=== PATIENT | female | born 1930 | race African-American/Black ===

== ENCOUNTER 2019-02-05 10:21 | Emergency (ER) | payer MEDICARE, BC ==
[~2019-02-05] VITALS: Ht 170.2 cm; Wt 77.7 kg
[2019-02-05 10:23] VITALS: Ht 170.2 cm; Wt 77.7 kg
[2019-02-05] MEDS ORDERED: ALDACTONE25 MG PO (10:27)
[2019-02-05] MEDS ORDERED: CARDURA8 MG PO (10:28)
[2019-02-05] MEDS ORDERED: RYTHMOL SR225 MG PO (10:28)
[2019-02-05] MEDS ORDERED: ISORDIL5 MG PO (10:28)
[2019-02-05] MEDS ORDERED: KEPPRA750 MG PO (10:28)
[2019-02-05 11:10] LABS: BASOPHILS 0.6 % (0-2); EOSINOPHILS 3.7 % (0-7); HEMATOCRIT 34.9 % (36.0-48.0); HEMOGLOBIN 11.4 g/dL (12-16); LYMPHOCYTES 39.1 % (15-50); MCH 29.2 pg (26.0-34.0); MCHC 32.7 g/dL (31.0-37.0); MCV 89.3 fL (80.0-100.0); MEAN PLATELET VOLUME 10.6 fL (7.4-10.4); MONOCYTES 7.8 % (2-11); NEUTROPHILS 48.8 % (40-80); RBC 3.91 10x6/uL (4.00-5.40); RDW 13.8 % (11.5-14.5); WBC 3.2 10x3/uL (4.8-10.8)
[2019-02-05 11:15] LABS: PLATELET COUNT 169 10x3/uL (130-400)
[2019-02-05 11:26] LABS: ALBUMIN 3.5 g/dL (3.4-5.0); ANION GAP 8.3 mmol/L (8-16); BILIRUBIN - TOTAL 0.67 mg/dL (0.2-1.3); CALCIUM 8.8 mg/dL (8.5-10.1); CARBON DIOXIDE 31.1 mmol/L (21.0-32.0); CREATININE - SERUM 1.4 mg/dL (0.6-1.3); POTASSIUM - SERUM 4.4 mmol/L (3.5-5.1); PROTEIN - SERUM 7.4 g/dL (6.4-8.2)
[2019-02-05 13:04] VITALS: BP 176/92
== END 2019-02-05 13:06 | disposition home or self-care (01) ==
LOC: D.ER 10:21
PROVIDERS: Family Medicine
DX: I12.9 Hypertensive chronic kidney disease with stage 1 through stage 4 chronic kidney disease, or unspecified chronic kidney disease (principal); N18.2 Chronic kidney disease, stage 2 (mild); D64.9 Anemia, unspecified; D72.819 Decreased white blood cell count, unspecified

== ENCOUNTER 2019-11-22 17:43 | Emergency (ER) | payer MEDICARE, BC ==
[~2019-11-22] VITALS: Ht 170.2 cm; Wt 82.3 kg
[~2019-11-22 17:43] MED LIST: ALDACTONE25 MG PO; CARDURA8 MG PO; ISORDIL5 MG PO; KEPPRA750 MG PO; RYTHMOL SR225 MG PO
[2019-11-22 18:16] VITALS: Ht 170.2 cm; Wt 82.3 kg
[2019-11-22 18:42] LABS: BASOPHILS 0.2 % (0-2); HEMATOCRIT 38.2 % (36.0-48.0); HEMOGLOBIN 12.5 g/dL (12-16); IMMATURE GRANULOCYTES 0.5 % (0-5); LYMPHOCYTES 33.7 % (15-50); MCHC 32.7 g/dL (31.0-37.0); MCV 91.6 fL (80.0-100.0); MEAN PLATELET VOLUME 10.7 fL (7.4-10.4); NEUTROPHILS 56.6 % (40-80); PLATELET COUNT 197 10x3/uL (130-400); RBC 4.17 10x6/uL (4.00-5.40); RDW 13.7 % (11.5-14.5)
[2019-11-22 19:07] LABS: ANION GAP 13.9 mmol/L (8-16); CALCIUM 8.6 mg/dL (8.5-10.1); CARBON DIOXIDE 25.5 mmol/L (21.0-32.0); CREATININE - SERUM 1.9 mg/dL (0.6-1.3); POTASSIUM - SERUM 5.4 mmol/L (3.5-5.1)
[2019-11-22 19:18] LABS: ALBUMIN 3.5 g/dL (3.4-5.0); BILIRUBIN - TOTAL 0.51 mg/dL (0.2-1.3); PROTEIN - SERUM 7.6 g/dL (6.4-8.2)
[2019-11-22 21:30] VITALS: BP 121/83
== END 2019-11-22 21:31 | disposition home or self-care (01) ==
LOC: D.ER 17:43
PROVIDERS: Family Medicine
DX: S09.90XA Unspecified injury of head, initial encounter (principal); W19.XXXA Unspecified fall, initial encounter; Y93.9 Activity, unspecified; Y92.9 Unspecified place or not applicable; I50.9 Heart failure, unspecified; I11.0 Hypertensive heart disease with heart failure

== ENCOUNTER 2020-05-14 09:46 | Inpatient (IN) | payer MEDICARE, BC ==
[2020-05-14] VITALS (7 sets, daily range): BP systolic 88–178; BP diastolic 45–84; BMI 26.7
[~2020-05-14] VITALS: Ht 170.2 cm; Wt 77.1 kg
--- NOTE | 2020-05-14 10:15 | NUR ---
RT CALLED FOR ABG AT THIS TIME. SPOKE WITH DANG.
[2020-05-14 10:27] LABS: BASOPHILS 0.6 % (0-2); EOSINOPHILS 3.9 % (0-7); HEMATOCRIT 36.7 % (36.0-48.0); HEMOGLOBIN 11.8 g/dL (12-16); IMMATURE GRANULOCYTES 0.6 % (0-5); LYMPHOCYTES 30.4 % (15-50); MCH 29.4 pg (26.0-34.0); MCHC 32.2 g/dL (31.0-37.0); MCV 91.5 fL (80.0-100.0); MEAN PLATELET VOLUME 9.9 fL (7.4-10.4); MONOCYTES 6.8 % (2-11); NEUTROPHILS 57.7 % (40-80); PLATELET COUNT 165 10x3/uL (130-400); RBC 4.01 10x6/uL (4.00-5.40); RDW 14.2 % (11.5-14.5); WBC 3.4 10x3/uL (4.8-10.8)
[2020-05-14 10:37] LABS: APTT 25.9 SECONDS (22.8-39.4); INR 1.07 (0.85-1.17); PROTIME 13.8 SECONDS (11.6-15.0)
[2020-05-14 10:41] LABS: CALC OSMOLALITY 282 mosm/kg (275-300); CALCIUM 8.3 mg/dL (8.5-10.1); CARBON DIOXIDE 30.8 mmol/L (21.0-32.0); CHLORIDE - SERUM 106 mmol/L (98-107); CREATININE - SERUM 1.8 mg/dL (0.6-1.3); GLUCOSE 136 mg/dL (74-106); POTASSIUM - SERUM 4.3 mmol/L (3.5-5.1); SODIUM 140 mmol/L (136-145); UREA NITROGEN 18 mg/dL (7-18); eGFR NON AFRICAN AMERICAN 28 mL/min (90-120)
[2020-05-14 11:00] LABS: ALBUMIN 3.5 g/dL (3.4-5.0); ALKALINE PHOSPHATASE 74 U/L (30-120); ALT (SGPT) 16 U/L (10-68); BILIRUBIN - TOTAL 0.88 mg/dL (0.2-1.3); CREATINE KINASE 62 UL (21-215); PRO BNP 868 pg/mL (0-450); PROTEIN - SERUM 7.3 g/dL (6.4-8.2); TROPONIN-I < 0.017 ng/mL (0.000-0.060)
[2020-05-14 11:09] LABS: D-DIMER-QUANTITATIVE 5.56 ug/mLFEU (0.20-0.54)
--- NOTE | 2020-05-14 11:12 | NUR ---
CRITICAL LABS D-DIMER, LACTIC ACID REPORTED TO PHYSICIAN.
[2020-05-14 14:09] LABS: BILIRUBIN NEGATIVE (NEGATIVE); GLUCOSE NEGATIVE (NEGATIVE); KETONE NEGATIVE (NEGATIVE); NITRITE NEGATIVE (NEGATIVE); UROBILINOGEN NORMAL (NORMAL)
[2020-05-14 14:14] LABS: BACTERIA FEW /hpf (NEGATIVE); EPITHELIAL CELLS 0-5 /hpf (0-5); HYALINE CAST 0-5 /lpf (NONE SEEN); RED CELLS - URINE NONE SEEN /hpf (0-5)
[2020-05-14] MEDS ORDERED: TENORMIN25 MG PO (15:54)
--- NOTE | 2020-05-14 17:42 | NUR ---
PATIENT TELEMETRY APPLIED. RUNNING 52 SB
--- NOTE | 2020-05-14 19:45 | NUR ---
PT SITTING UP IN BED WITHOUT DISTRESS, AOX4. IV LEFT AC INFUSING NS @ 75. ASSISTED PT ON AND OFF BEDPAN TO VOID. SCDS ON. BED ALARM ON. DENIES OTHER NEEDS. CL IN REACH, WILL CTM
--- NOTE | 2020-05-14 22:30 | NUR ---
CALLED VIVEK MEYERS APN ABOUT PT NIGHT TIME HOME MEDS. ORDERS TO RESTART KEPPRA AND RYTHMOL AND ORDER [facility] IN AM.
[2020-05-15] VITALS: BP 162/88
[2020-05-15 04:00] VITALS: BP 189/86
[2020-05-15 04:29] LABS: BASOPHILS 0.6 % (0-2); EOSINOPHILS 4.8 % (0-7); HEMATOCRIT 34.2 % (36.0-48.0); HEMOGLOBIN 11.1 g/dL (12-16); IMMATURE GRANULOCYTES 0.3 % (0-5); LYMPHOCYTES 38.4 % (15-50); MCH 29.4 pg (26.0-34.0); MCHC 32.5 g/dL (31.0-37.0); MCV 90.7 fL (80.0-100.0); MEAN PLATELET VOLUME 10.4 fL (7.4-10.4); MONOCYTES 10.3 % (2-11); NEUTROPHILS 45.6 % (40-80); PLATELET COUNT 164 10x3/uL (130-400); RBC 3.77 10x6/uL (4.00-5.40); RDW 14.1 % (11.5-14.5); WBC 3.3 10x3/uL (4.8-10.8)
[2020-05-15 04:48] LABS: ALBUMIN 3.1 g/dL (3.4-5.0); ANION GAP 10.1 mmol/L (8-16); BILIRUBIN - TOTAL 1.01 mg/dL (0.2-1.3); CARBON DIOXIDE 27.4 mmol/L (21.0-32.0); CREATININE - SERUM 1.4 mg/dL (0.6-1.3); MAGNESIUM - SERUM 2.2 mg/dL (1.8-2.4); PROTEIN - SERUM 6.5 g/dL (6.4-8.2)
[2020-05-15 04:54] LABS: POTASSIUM - SERUM 3.5 mmol/L (3.5-5.1)
--- NOTE | 2020-05-15 06:00 | NUR ---
REFUSED TO TAKE POTASSIUM PER PROTOCOL UNTIL BREAKFAST STATING SHE HAS TO EAT WITH IT OR IT MAKES HER STOMACH UPSET
--- NOTE | 2020-05-15 07:00 | NUR ---
RECIEVED PT FROM DISCHARGE PLANNER. LEFT AC IV WITH NORMAL SALINE @ 75, ROOM AIR. PT HAS TELEMETRY ON. PT IS ALERT AND ORIENTED X4. OCCASIONAL SPELLS OF URINE INCONTINENCE. USES BED PANS. BED IN LOWEST POSITION, BED RAILS X2, CALL LIGHT WITHIN REACH. WILL CONTINUE TO MONITOR.
--- NOTE | 2020-05-15 08:06 | NUR ---
PT ALERT AND ORIENTE X4 UPON ENTERING. HUNG IV ABX. PT REQUESTS TO TAKE MORNING MEDICATION AFTER BREAKFAST. DENIES ANY OTHER NEEDS. BED IN LOWEST POSITION, BED RAILS X2, CALL LIGHT WITHIN REACH. WILL CONTINUE TO MONITOR. CHANGED PT DUE TO URINE INCONTINENCE.
[2020-05-15 09:11] VITALS: BP 197/91
--- NOTE | 2020-05-15 10:04 | NUR ---
PT ALERT AND ORIENTED X4 UPON ENTERING. MORNING MEDICATION GIVEN, NO DIFFICULTIES. PT IS RESTING UPRIGHT IN BED. DENIES ANY NEEDS. WILL CONTINUE TO MONITOR.
[2020-05-15 12:22] VITALS: BP 113/53
[2020-05-15 12:50] VITALS: Ht 170.2 cm; Wt 77.1 kg
--- NOTE | 2020-05-15 15:05 | NUR ---
ADMINISTERED MEDICATION AT THIS TIME. NO DIFFICULTIES. RESTING COMFORTABLY. WILL CONTINUE TO MONITOR.
[2020-05-15 17:04] VITALS: BP 178/82
[2020-05-15 20:00] VITALS: BP 168/84
--- NOTE | 2020-05-15 20:00 | NUR ---
PT SITTING UP IN BED WITHOUT DISTRESS, AOX4. SON AT BEDSIDE. IV LEFT AC INFUSING NS @ 75. DENIES PAIN. TOOK MEDS WITHOUT DIFFICULTY. REFUSED STOOL SOFTENER STATING "I ALREADY TOOK ONE TODAY" EVEN AFTER EXPLAINING TO PT IT WAS ORDERED TWICE A DAY. PT STATES SHE CANNOT USE BEDPAN TO HAVE BM, WANTS TO GET UP TO BATHROOM. SON AND NURSES AID ASSISTED PT TO BATHROOM WITH MAX ASSIST. PT HAD BM AND WAS ASSISTED BACK TO BED. DENIES OTHER NEEDS AT THIS TIME. CL IN REACH, BED ALARM ON, WILL CTM
[2020-05-16] VITALS: BP 176/82
[2020-05-16 04:00] VITALS: BP 168/76
[2020-05-16 07:18] LABS: BASOPHILS 0.2 % (0-2); EOSINOPHILS 3.6 % (0-7); HEMOGLOBIN 11.1 g/dL (12-16); IMMATURE GRANULOCYTES 0.2 % (0-5); LYMPHOCYTES 27.1 % (15-50); MCHC 31.7 g/dL (31.0-37.0); MCV 91.4 fL (80.0-100.0); MEAN PLATELET VOLUME 10.5 fL (7.4-10.4); MONOCYTES 6.2 % (2-11); NEUTROPHILS 62.7 % (40-80); PLATELET COUNT 156 10x3/uL (130-400); RBC 3.83 10x6/uL (4.00-5.40); RDW 14.3 % (11.5-14.5)
[2020-05-16 07:26] LABS: ALBUMIN 2.9 g/dL (3.4-5.0); ANION GAP 10.6 mmol/L (8-16); BILIRUBIN - TOTAL 0.85 mg/dL (0.2-1.3); CALCIUM 8.3 mg/dL (8.5-10.1); CARBON DIOXIDE 26.9 mmol/L (21.0-32.0); CREATININE - SERUM 1.4 mg/dL (0.6-1.3); MAGNESIUM - SERUM 2.2 mg/dL (1.8-2.4); POTASSIUM - SERUM 3.5 mmol/L (3.5-5.1); PROTEIN - SERUM 6.3 g/dL (6.4-8.2)
--- NOTE | 2020-05-16 07:30 | NUR ---
REC'D IN BED AWAKE AND ALERT. RESP EVEN AND UNLABORED WITH NO DISTRESS NOTED OR VOICED. NO C/O NOTED OR VOICED. ASSESSMENT COMPLETED. C/L IN REACH AT BEDSIDE.
[2020-05-16 07:37] LABS: WBC 4.4 10x3/uL (4.8-10.8)
[2020-05-16 09:00] VITALS: BP 179/79
--- NOTE | 2020-05-16 09:54 | NUR ---
I have reviewed this patient and I concur with the Shift Assessment completed by the Licensed Practical Nurse today this shift.
--- NOTE | 2020-05-16 10:52 | NUR ---
DR. BERNSTEIN WAS CONSULTED ON THIS PT WAS CALLED AND NOTIFIED REC'D NEW ORDERS FOR MRA OF HEAD AND NECK WITHOUT CONTRAST AND ECHO IF NOT ALREADY DONE. .
[2020-05-16 12:57] VITALS: BP 163/62
--- NOTE | 2020-05-16 16:20 | NUR ---
Rehab Note- Acute Inpatient Rehab prescreen order recieved. We currently have no beds avaliable at this time. Thank you for this referral! Jacy Pal RN Clinical Liaison, [facility] Rehab
[2020-05-16 16:53] VITALS: BP 163/78
--- NOTE | 2020-05-16 17:18 | NUR ---
Rehab Note- Acute Inpatient REhab prescreen order received. We curretnly have no beds avaliable at this time. Will follow. Thank you for this referral! Jacy Pal RN Clinical Liaison, [facility] Rehab
[2020-05-16 20:00] VITALS: BP 176/73
--- NOTE | 2020-05-16 20:00 | NUR ---
PT LYING IN BED RESTING WITHOUT DISTRESS, AOX4. SON AT BEDSIDE. IV LEFT AC SL. PT DOES NOT WANT SCDS ON AT THIS TIME. SON LEFT TO GO HOME. PT INCONTINENT OF BLADDER. CHRISTI CARE PROVIDED, GOWN AND LINENS CHANGED. TOOK MEDS WTIHOUT DIFFICULTY. REFUSED STOOL SOFTENER. DENIES OTHER NEEDS. BED ALARM ON. CL IN REACH, WILL CTM
[2020-05-17] VITALS: BP 123/80
--- NOTE | 2020-05-17 04:53 | NUR ---
REFUSING ALL RESPIRATORY TREATMENTS.
--- NOTE | 2020-05-17 06:19 | NUR ---
OT NOTE: (DOS 05/16/2020) PT COMPLETED SIDE ROLLING WITH WEAKNESS NOTED ON R SIDE REQUIRED MIN/MOD A. PT COMPLETED SUPINE SIT WITH MAX A. PT COMPLETED FACE HYGIENE WITH SETUP. [phone] THANK YOU,WILLAM SMALLS
[2020-05-17 06:38] LABS: BASOPHILS 0.6 % (0-2); EOSINOPHILS 5.4 % (0-7); HEMATOCRIT 34.5 % (36.0-48.0); HEMOGLOBIN 11.1 g/dL (12-16); IMMATURE GRANULOCYTES 0.3 % (0-5); LYMPHOCYTES 34.7 % (15-50); MCH 29.6 pg (26.0-34.0); MCHC 32.2 g/dL (31.0-37.0); MEAN PLATELET VOLUME 10.7 fL (7.4-10.4); PLATELET COUNT 157 10x3/uL (130-400); RBC 3.75 10x6/uL (4.00-5.40); RDW 14.4 % (11.5-14.5); WBC 3.5 10x3/uL (4.8-10.8)
[2020-05-17 06:50] LABS: ALBUMIN 2.9 g/dL (3.4-5.0); ANION GAP 10.5 mmol/L (8-16); BILIRUBIN - TOTAL 0.56 mg/dL (0.2-1.3); CALCIUM 8.2 mg/dL (8.5-10.1); CARBON DIOXIDE 26.3 mmol/L (21.0-32.0); CHOL - HDL RATIO 4.3 ratio (2.3-4.1); CREATININE - SERUM 1.4 mg/dL (0.6-1.3); LDL-HDL RATIO 2.8 ratio (1.5-3.5); MAGNESIUM - SERUM 2.1 mg/dL (1.8-2.4); PHOSPHOROUS 3.4 mg/dL (2.5-4.9); POTASSIUM - SERUM 3.8 mmol/L (3.5-5.1); PROTEIN - SERUM 5.9 g/dL (6.4-8.2)
--- NOTE | 2020-05-17 08:14 | NUR ---
PT RESTING IN BED WITH EYES CLOSED RESTING COMFORTABLY, NO S/S OF DISTRESS. IV LOCATED TO LEFT AC CURRENTLY SL. WILL CONT TO MONITOR.
[2020-05-17 09:22] VITALS: BP 155/70
--- NOTE | 2020-05-17 12:46 | NUR ---
OT NOTE: EXTENSIVE AMOUNT OF TIME REQUIRED DURING TMT TODAY. BED MOB WITH MOD ASSIST. REQUIRED APPROX 5 MIN OF STATIC SITTING ON EOB DUE TO REPORTS OF DIZZINESS. SIT TO STAND AND ATTEMPTED A FEW STEPS BUT SHE REPORTED THAT HER HEAD FELT "FUZZY" AND SHE WAS NOT THINKING CLEARLY. GRANDSON AT BEDSIDE AND HELPED TO ENCOURAGE PT. ON 2ND ATTEMPT, PT WAS ABLE TO TAKE APPROX 10-15 SMALL STEPS FROM BED TO CHAIR WITH USE OF WALKER AND MIN ASSIST X 2; VERBAL CUES FOR WT SHIFT FORWARD. PROVIDED CUSHION FOR CHAIR AND PT ABLE TO PERFORM STAND TO SIT WITH MIN/MOD ASSIST. ELEVATED LES IN RECLINER.. PT COMFORTABLE WITH NO NEEDS. ALARM IN CHAIR AND TURNED ON. EDUCATED AND DEMONSTRATED UE/LE EXS TO PERFORM WHILE IN UPRIGHT SITTING POSITION TO ASSIST WITH STRENGTH AND PREVENT FURTHER DECLINE. KIAN AUGUSTIN, OTR/L [phone]
[2020-05-17 12:51] VITALS: BP 150/78
--- NOTE | 2020-05-17 13:56 | NUR ---
Nutrition Follow-up: [facility] with chopped meats PO intake: 75% x last 3 meals; she complains that food is "too salty." She gave a few food preferences. Last BM: 05/16/20. WT: 170# (05/15/20); Admit WT: 170# (05/14/20) Meds reviewed. Labs noted: GFR 45(L), Cr 1.4(H). Recommend continue Cardiac/low sodium diet. Will update food preferences. RD following.
[2020-05-17 17:22] VITALS: BP 138/87
--- NOTE | 2020-05-17 19:00 | NUR ---
BEDSIDE REPORT RECEIVED AND CARE OF PT ASSUMED. PT LYING IN LOW MILIAN'S POSITION WITH EYES CLOSED. IV TO LEFT AC SALINE LOCKED. TELEMETRY IN USE AND READING 57 SB AT THIS ASSESSMENT. BED ALARM IN USE. WILL MONITOR FOR NEEDS.
[2020-05-17 20:00] VITALS: BP 149/61
--- NOTE | 2020-05-17 20:21 | NUR ---
HS MEDICATIONS GIVEN. WILL CONTINUE TO MONITOR FOR NEEDS.
[2020-05-18] VITALS: BP 151/64
[2020-05-18 04:00] VITALS: BP 145/72
--- NOTE | 2020-05-18 05:45 | NUR ---
PT BATHED AND ALL LINENS AND GOWN CHANGED. POSITIONED FOR COMFORT.
[2020-05-18 05:49] LABS: BASOPHILS 0.9 % (0-2); EOSINOPHILS 6.6 % (0-7); HEMATOCRIT 34.6 % (36.0-48.0); IMMATURE GRANULOCYTES 0.6 % (0-5); LYMPHOCYTES 26.8 % (15-50); MCH 29.3 pg (26.0-34.0); MCHC 31.8 g/dL (31.0-37.0); MCV 92.3 fL (80.0-100.0); NEUTROPHILS 54.1 % (40-80); PLATELET COUNT 164 10x3/uL (130-400); RBC 3.75 10x6/uL (4.00-5.40); RDW 14.5 % (11.5-14.5); WBC 3.2 10x3/uL (4.8-10.8)
[2020-05-18 06:07] LABS: ALBUMIN 2.8 g/dL (3.4-5.0); ANION GAP 8.8 mmol/L (8-16); BILIRUBIN - TOTAL 0.53 mg/dL (0.2-1.3); CALCIUM 8.2 mg/dL (8.5-10.1); CARBON DIOXIDE 27.8 mmol/L (21.0-32.0); CREATININE - SERUM 1.4 mg/dL (0.6-1.3); MAGNESIUM - SERUM 2.2 mg/dL (1.8-2.4); PHOSPHOROUS 3.6 mg/dL (2.5-4.9); POTASSIUM - SERUM 3.6 mmol/L (3.5-5.1); PROTEIN - SERUM 6.3 g/dL (6.4-8.2)
[2020-05-18 09:12] VITALS: BP 185/80
[2020-05-18 13:11] VITALS: BP 133/70
--- NOTE | 2020-05-18 19:00 | NUR ---
BEDSIDE REPORT RECEIVED AND CARE OF PT ASSUMED. PT LYING IN LOW MILIAN'S POSITION WATCHING TV. IV TO LEFT AC SALINE LOCKED. TELEMETRY IN PLACE AND READING SB AT 55 AT THIS ASSESSMENT. WILL MONITOR FOR NEEDS.
--- NOTE | 2020-05-18 19:39 | NUR ---
I have reviewed this patient and I concur with the Shift Assessment completed by the Licensed Practical Nurse today this shift.
--- NOTE | 2020-05-18 20:05 | NUR ---
HS MEDICATIONS GIVEN. PT REFUSED COLACE HAVING LOOSE STOOLS ALREADY. WILL CONTINUE TO MONITOR FOR NEEDS.
[2020-05-18 20:15] VITALS: BP 188/87
--- NOTE | 2020-05-18 20:40 | NUR ---
TALKED TO PT'S SON MEL, AND GAVE UPDATE.
--- NOTE | 2020-05-18 21:25 | NUR ---
CHANGED BEDPAD DUE TO INCONTINENCE OF URINE. POSITIONED FOR COMFORT.
[2020-05-19 01:11] VITALS: BP 192/84
[2020-05-19 04:35] VITALS: BP 176/85
[2020-05-19 05:32] LABS: HEMATOCRIT 33.6 % (36.0-48.0); HEMOGLOBIN 10.8 g/dL (12-16); MCH 29.7 pg (26.0-34.0); MCHC 32.1 g/dL (31.0-37.0); MCV 92.3 fL (80.0-100.0); MEAN PLATELET VOLUME 10.5 fL (7.4-10.4); PLATELET COUNT 156 10x3/uL (130-400); RBC 3.64 10x6/uL (4.00-5.40); RDW 14.8 % (11.5-14.5); WBC 2.8 10x3/uL (4.8-10.8)
[2020-05-19 05:34] LABS: EOSINOPHILS 6 % (0-7); LYMPHOCYTES 23 % (15-50); MONOCYTES 8 % (2-11); NEUTROPHILS 63 % (40-80); PLATELET ESTIMATE NORMAL
[2020-05-19 06:04] LABS: ALBUMIN 2.8 g/dL (3.4-5.0); ANION GAP 10.5 mmol/L (8-16); BILIRUBIN - TOTAL 0.4 mg/dL (0.2-1.3); CALCIUM 8.4 mg/dL (8.5-10.1); CARBON DIOXIDE 27.1 mmol/L (21.0-32.0); CREATININE - SERUM 1.6 mg/dL (0.6-1.3); MAGNESIUM - SERUM 2.1 mg/dL (1.8-2.4); PHOSPHOROUS 4.1 mg/dL (2.5-4.9); POTASSIUM - SERUM 3.6 mmol/L (3.5-5.1); PROTEIN - SERUM 6.3 g/dL (6.4-8.2)
[2020-05-19 08:30] VITALS: BP 186/89
--- NOTE | 2020-05-19 09:00 | NUR ---
LETHARGIC AND ORIENTED TO SELF ONLY WITH FAMILY PRESENT. LUNGS CTA O2 2L N/C. ASSISTED UP TO BSC X1. BED ALARM ON AT THIS TIME AND ACTIVE. TOOK MEDS WHOLE WITH MAGNESIUM REPLACED PER PROTOCOL. IV TO LEFT F/A S/L WITH NO S/S OF INFECTION/INFILTRATION. ENCOURAGED TO USE CALL LIGHT FOR ASSSIT.
--- NOTE | 2020-05-19 09:00 | NUR ---
ALERT AND ORIENTED X3. ISOLATION STARTED DUE TO URINE CULTURE. INCONTINENT OF URINE AT THIS TIME. PERICARE DONE WITH EACH INCONT. EPISODE. TELEMETRY INTACT AND DENIES ANY CHEST PAIN OR DISCOMFORT. LUNGS DIMINISHED BUT CTA. ENCOURAGED TO USE CALL LIGHT FOR ASSSIT. REQUIRES SET UP AND ASSSIT WITH MEALS
[2020-05-19 12:21] VITALS: BP 139/66
[2020-05-19 17:48] VITALS: BP 153/69
--- NOTE | 2020-05-19 19:00 | NUR ---
BEDSIDE REPORT RECEIVED AND CARE OF PT ASSUMED. PT LYING IN SUPINE POSITION WITH EYES CLOSED. IV TO LEFT AC PATENT WITH 1/2 NS INFUSING AT 50 ML/HR. TELEMETRY IN PLACE AND READING 53 SB AT THIS ASSESSMENT. BED ALARM IN USE FOR SAFETY.
[2020-05-19 20:08] VITALS: BP 181/78
--- NOTE | 2020-05-19 20:54 | NUR ---
HS MEDICATIONS GIVEN. WILL CONTINUE TO MONITOR FOR NEEDS.
[2020-05-20 04:00] VITALS: BP 186/81
[2020-05-20 05:25] LABS: BASOPHILS 0.6 % (0-2); EOSINOPHILS 7.3 % (0-7); HEMOGLOBIN 10.9 g/dL (12-16); IMMATURE GRANULOCYTES 0.3 % (0-5); LYMPHOCYTES 28.7 % (15-50); MCH 28.8 pg (26.0-34.0); MCHC 31.1 g/dL (31.0-37.0); MCV 92.6 fL (80.0-100.0); MEAN PLATELET VOLUME 9.8 fL (7.4-10.4); NEUTROPHILS 52.1 % (40-80); PLATELET COUNT 152 10x3/uL (130-400); RBC 3.78 10x6/uL (4.00-5.40); RDW 14.8 % (11.5-14.5); WBC 3.2 10x3/uL (4.8-10.8)
[2020-05-20 05:46] LABS: ALBUMIN 2.7 g/dL (3.4-5.0); ANION GAP 8.5 mmol/L (8-16); BILIRUBIN - TOTAL 0.42 mg/dL (0.2-1.3); CALCIUM 8.2 mg/dL (8.5-10.1); CARBON DIOXIDE 29.1 mmol/L (21.0-32.0); CREATININE - SERUM 1.5 mg/dL (0.6-1.3); MAGNESIUM - SERUM 2.2 mg/dL (1.8-2.4); PHOSPHOROUS 3.6 mg/dL (2.5-4.9); POTASSIUM - SERUM 3.6 mmol/L (3.5-5.1); PROTEIN - SERUM 6.2 g/dL (6.4-8.2)
[2020-05-20 09:12] VITALS: BP 160/75
--- NOTE | 2020-05-20 12:01 | MORECARE ---
CASE MANAGEMENT DISCHARGE SUMMARY PATIENT: CHRISTAL HANLEY UNIT: [id number] ADM DATE: 05/14/20 AGE: 89 : 32 SEX: F ROOM/BED: D.2203 AUTHOR: ROBERT KILLIAN PHYSICIAN: REFERRING PHYSICIAN: ROBERT CISNEROS MD DATE OF SERVICE: 05/20/20 Discharge Plan Patient Name: CHRISTAL HANLEY Facility: [facility]:[place] : 1930 Planned Disposition: Inpatient Rehab Anticipated Discharge Date: Discharge Date: Expected LOS: Initial Reviewer: [email or web address] Initial Review Date: 05/20/2020 Generated: 05/20/20 1:01 pm Patient Name: CHRISTAL HANLEY Page [phone] at 1201 All edits/amendments must be made on the electronic document DICTATION DATE: 05/20/20 1201 WELLHEAD PUMPER: IDALMIS 05/20/20 1201 RPT#: [id number] DC DATE: STATUS: ADM IN [facility] [address] [place] [address] END OF REPORT
--- NOTE | 2020-05-20 12:08 | MORECARE ---
CASE MANAGEMENT DISCHARGE SUMMARY PATIENT: CHRISTAL HANLEY UNIT: [id number] ADM DATE: 05/14/20 AGE: 89 : 32 SEX: F ROOM/BED: D.2203 AUTHOR: ROBERT KILLIAN PHYSICIAN: REFERRING PHYSICIAN: ROBERT CISNEROS MD DATE OF SERVICE: 05/20/20 Discharge Plan Patient Name: CHRISTAL HANLEY Facility: [facility]:[place] : 1930 Planned Disposition: Inpatient Rehab Anticipated Discharge Date: Discharge Date: Expected LOS: Initial Reviewer: [id number] Initial Review Date: 05/20/2020 Generated: 05/20/20 1:08 pm Comments DCP- Discharge Planning Updated by [email or web address]: Marianna Cueto on 05/20/20 11:[address] Patient Name: CHRISTAL HANLEY Admission Status: ER Accout number: [id number] Admission Date: 05-14-2020 : 1930 Admission Diagnosis:OTHER PULMONARY EMBOLISM WITHOUT ACUTE COR PULMONALE Attending: JUAN JOSÉ Current LOS: 6 Anticipated DC Date: Planned Disposition: Inpatient Rehab Primary Insurance: MEDICARE A & B Discharge Planning Comments: CM met with patient at bedside after explaining CM role and obtaining verbal consent. PATIENT CALLED HER SON MEL AND PUT HIM ON SPEAKER PHONE. CM discussed availability / needs of home health, REHAB and medical equipment. EVERYONE WAS IN AGREEMENT THAT SHE WOULD BENEFIT FROM [facility] AT [facility]. CHARISSA SIGNED AND IMM SIGNED. POSSIBLE DC TO [facility] TODAY IF BED AVAILABLE. CM TO FOLLOW AND ASSIST NEEDED. Glass Polisher: Marianna Cueto Coverage Notice Reviewer: [id number] Stephane Cueto Notice Issued Date-Time: 05/20/2020 12:03 Notice Type: IM Discharge Notice Notice Delivered To: Patient Relationship to Patient: Accounts Receivable Manager Name: Delivery Method: HAND - Hand Delivered Wendy Days: Prior Verbal Notification: Recipient Understood Notice: Yes Recipient Signature: Yes Med Rec Note Co-signed by Attending: Coverage Notice Comment: Reviewer: [id number] Stephane Cueto Notice Issued Date-Time: 05/20/2020 12:03 Notice Type: Patient Choice Letter Notice Delivered To: Patient Relationship to Patient: Accounts Receivable Manager Name: Delivery Method: HAND - Hand Delivered Wendy Days: Prior Verbal Notification: Recipient Understood Notice: Yes Recipient Signature: Yes Med Rec Note Co-signed by Attending: Coverage Notice Comment: [facility] Last DP export: 05/20/20 11:01 am Patient Name: CHRISTAL HANLEY Page [phone] at 1208 All edits/amendments must be made on the electronic document DICTATION DATE: 05/20/201207 MANAGER BATTERY: IDALMIS 05/20/20 1208 RPT#: [id number] DC DATE: STATUS: ADM IN [facility] [address] [place] [address] END OF REPORT
[2020-05-20] MEDS ORDERED: XARELTO15 MG PO (12:20)
[2020-05-20] MEDS ORDERED: IPRAT-ALBUT 0.5-3 ML UPD (12:20)
[2020-05-20] MEDS ORDERED: COLACE100 MG PO (12:21)
[2020-05-20] MEDS ORDERED: HYDRALAZINE20 MG/ML IV (12:21)
[2020-05-20] MEDS ORDERED: ACETAMINOPHEN500 M1 PO (12:21)
[2020-05-20] MEDS ORDERED: PEPCID PO (12:22)
[2020-05-20] MEDS ORDERED: MIRALAX17 GM PO (12:22)
[2020-05-20 12:38] VITALS: BP 101/48
[2020-05-20] MEDS ORDERED: LIPITOR40 MG PO (12:43)
--- NOTE | 2020-05-20 14:12 | NUR ---
OT NOTE: PT DOING BETTER TODAY. PT REPORTING THAT SHE HAD URINATED ON SELF AND NEEDED TO BE CLEANED. PT ABLE TO ROLL FROM SIDE TO SIDE WITH MIN ASSIST IN ORDER FOR TOILET HYGIENE TO BE COMPLETED. ABLE TO PERFORM SUPINE TO SIT WITH MIN ASSIST AND EXT TIME; SET UP FOR SIMPLE GROOMING TASK BUT MAX ASSIST TO CHUCHO AND ADJUST SOCKS; SIT TO STAND WITH MIN ASSIST; ABLE TO AMB A FEW STEPS FROM BED TO CHAIR WITH MIN ASSIST AND USE OF WALKER; TRANSFER TO CHAIR WITH MIN ASSIST. KIAN AUGUSTIN, OTR/L [phone]
--- NOTE | 2020-05-20 14:50 | NUR ---
OT NOTE: PT COMPLETED UB HYGIENE TASKS WITH MOD A. PT COMPLETED REPOSITIONING WITH MOD A. 1124 THANK YOU,WILLAM SMALLS
--- NOTE | 2020-05-20 16:09 | NUR ---
CALLED REPORT TO RICHIE ELIAS
[2020-05-20 16:55] VITALS: BP 150/64
--- NOTE | 2020-05-20 17:20 | NUR ---
IV THERAPY REMOVED FROM LEFT AC WITH TIP INTACT. DISCHARGE PAPERS SIGNED. PATIENT TAKEN TO REHAB 10.
--- NOTE | 2020-05-21 09:04 | MORECARE ---
CASE MANAGEMENT DISCHARGE SUMMARY PATIENT: CHRISTAL HANLEY UNIT: [id number] ADM DATE: 05/14/20 AGE: 89 : 32 SEX: F ROOM/BED: D.2203 AUTHOR: ROBERT KILLIAN PHYSICIAN: REFERRING PHYSICIAN: ROBERT CISNEROS MD DATE OF SERVICE: 05/21/20 Discharge Plan Patient Name: CHRISTAL HANLEY Facility: [facility]:[place] : 1930 Planned Disposition: Inpatient Rehab Anticipated Discharge Date: Discharge Date: 05/20/2020 Expected LOS: Initial Reviewer: [id number] Initial Review Date: 05/20/2020 Generated: 05/21/20 10:03 am Comments DCP- Discharge Planning Updated by [id number]: Marianna Cueto on 05/20/20 11:[address] Patient Name: CHRISTAL HANLEY Admission Status: ER Accout number: [id number] Admission Date: 05-14-2020 : 1930 Admission Diagnosis:OTHER PULMONARY EMBOLISM WITHOUT ACUTE COR PULMONALE Attending: JUAN JOSÉ Current LOS: 6 Anticipated DC Date: Planned Disposition: Inpatient Rehab Primary Insurance: MEDICARE A & B Discharge Planning Comments: CM met with patient at bedside after explaining CM role and obtaining verbal consent. PATIENT CALLED HER SON DR. LEAL AND PUT HIM ON SPEAKER PHONE. CM discussed availability / needs of home health, REHAB and medical equipment. EVERYONE WAS IN AGREEMENT THAT SHE WOULD BENEFIT FROM [facility] AT [facility]. CHARISSA SIGNED AND IMM SIGNED. POSSIBLE DC TO [facility] TODAY IF BED AVAILABLE. CM TO FOLLOW AND ASSIST NEEDED. Assistant Golf Professional: Marianna Cueto Coverage Notice Reviewer: [id number] Stephane Cueto Notice Issued Date-Time: 05/20/2020 12:03 Notice Type: IM Discharge Notice Notice Delivered To: Patient Relationship to Patient: Pocket Secretary Assembler Name: Delivery Method: HAND - Hand Delivered Wendy Days: Prior Verbal Notification: Recipient Understood Notice: Yes Recipient Signature: Yes Med Rec Note Co-signed by Attending: Coverage Notice Comment: Reviewer: [id number] Stephane Cueto Notice Issued Date-Time: 05/20/2020 12:03 Notice Type: Patient Choice Letter Notice Delivered To: Patient Relationship to Patient: Pocket Secretary Assembler Name: Delivery Method: HAND - Hand Delivered Wendy Days: Prior Verbal Notification: Recipient Understood Notice: Yes Recipient Signature: Yes Med Rec Note Co-signed by Attending: Coverage Notice Comment: [facility] Last DP export: 05/20/20 11:08 am Patient Name: CHRISTAL HANLEY Page [phone] at 0904 All edits/amendments must be made on the electronic document DICTATION DATE: 05/21/20903 INFORMATION SECURITY ASSOCIATE: IDALMIS 05/21/20903 RPT#: [id number] DC DATE:05/20/20 STATUS: DIS IN [facility] [address] [place] [address] END OF REPORT
== END 2020-05-20 17:21 | DRG 175 ==
LOC: D.ER 09:46 → D.MS 13:50
PROVIDERS: Family Medicine; ADMIT Family Medicine; ATTEND Family Medicine
DX: I26.99 Other pulmonary embolism without acute cor pulmonale (principal); I63.89 Other cerebral infarction; N39.0 Urinary tract infection, site not specified; N17.9 Acute kidney failure, unspecified; I13.0 Hypertensive heart and chronic kidney disease with heart failure and stage 1 through stage 4 chronic kidney disease, or unspecified chronic kidney disease; R91.1 Solitary pulmonary nodule; D72.819 Decreased white blood cell count, unspecified; D64.9 Anemia, unspecified; I10 Essential (primary) hypertension; G40.909 Epilepsy, unspecified, not intractable, without status epilepticus; I50.9 Heart failure, unspecified; I48.91 Unspecified atrial fibrillation; N18.9 Chronic kidney disease, unspecified; R29.810 Facial weakness; R47.1 Dysarthria and anarthria

== ENCOUNTER 2020-05-20 16:09 | Inpatient (IN) | payer MEDICARE, BC ==
[~2020-05-20] VITALS: Ht 170.2 cm; Wt 77.1 kg
[~2020-05-20 16:09] MED LIST changes: +ACETAMINOPHEN500 M1 PO; +COLACE100 MG PO; +HYDRALAZINE20 MG/ML IV; +IPRAT-ALBUT 0.5-3 ML UPD; +LIPITOR40 MG PO; +MIRALAX17 GM PO; +PEPCID PO; +TENORMIN25 MG PO; +XARELTO15 MG PO
[2020-05-20 18:41] VITALS: BP 172/78; BMI 26.7
--- NOTE | 2020-05-20 19:39 | NUR ---
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 ORIENTED TO ROOM AND CALL LIGHT USE. RESTING IN BED WITH RESPIRAITONS UNLABORED. NOTED CONFUSED. 3+ EDEMA NOTED IN RIGHT LEG. RESPIRAITONS UNLABORED. NO ACUTE DISTRESS NOTED. CALL LIGHT IN REACH.
--- NOTE | 2020-05-20 21:05 | NUR ---
PATIENT CALLED FOR BEDPAN. I BROUGHT A BEDPAN IMMEDIATELY. AFTER ENTERING THE ROOM I ASK PATIENT "ARE YOU NOT ABLE TO WALK TO THE BATHROOM?' I ASK THIS PART OF MY ASSESSMENT DUE TO HER BEING A NEW PATIENT. PATIENT YELLED AT ME AND SAID " NO I CANNOT! WHY DO YOU THINK IM HERE?!" I EXPLAINED TO PATIENT THAT ASSESSING MOBILITY WAS PART OF MY JOB. SHE YELLED AGAIN SAYING "I KNOW I'M A NURSE" " I TOLD HER "DO AM I ASHWIN AND ASSESSMENT IS PART OF MY JOB" SHE SAID "I'M NOT ARGUING WITH YOU! KEEP TALKING, JUST KEEP TALKING!' I DIDNT SAY ANYMORE. SUPERVISOR ENGRAVING AND I ASSISTED TO CHANGE INCONTINET EPISODE BY CHANGING PADS AND CLEANING PAITENT. I THEN TRIED TO EXPLAIN AGAIN THAT I DID NOT INTEND TO INSULT HER OR ANGER HER. I WAS MERELY TRYING TO ASSESS HER MOBILITY BECAUSE IN REHAB MOBILITY IS A BIG PART OF THERAPY. SHE DIDNT REPSPOND AND HER SON CALLED HER SO I LEFT THE ROOM.
[2020-05-20 21:40] VITALS: BP 174/86
--- NOTE | 2020-05-21 00:14 | NUR ---
RECIVED CALL FROM PATIENTS SON. HE ASK ABOUT HIS MOTHER'S CONDITION. I GAVE HIM AN UPDATE. HE EXPLAINED THAT HIS MOTHER CAN BE AGITATED AT TIMES DUE TO HER NOT LIKING BEING IN CONTROL AND MAD ABOUT HER DECLINING HEALTH. 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 I TOLD HIM I COMPLETELY UNDERSTOOD AND THAT THE LAST TWO TIMES I WAS IN THE ROOM SHE WAS REALLY NICE. HE THEN ASK TO BE TRANSFERED TO HER ROOM TO TALK TO HER WHICH I DID.
--- NOTE | 2020-05-21 02:00 | NUR ---
SLEEPING WITH RESPIRATIONS UNLABORED. NO DISTRESS NOTED. CALL LIGHT IN REACH.
--- NOTE | 2020-05-21 05:32 | NUR ---
QUIET HOURS. NO ACUTE CHANGES IN CONDITION THIS SHIFT. RESTING IN BED WITH NO DISTRESS NOTED.
--- NOTE | 2020-05-21 05:41 | NUR ---
PATIENT REFUSED TO HAVE LAB DRAWN BECOMING HOSTILE WITH UTILITY MANAGER STATING "YOU ARE NOT GOING TO TRAIN ON ME!' THE UTILITY MANAGER EXPLAINED SHE WAS A VERY EXPERINCED. PATIENT CONTINUED TO REFUSE STATING "I HAVE A RIGHT TO REFUSE!' I SAID "YES ASHWIN YOU DO" MESSAGE LEFT FOR DR EMANUEL ON ROUNDING SHEET.
[2020-05-21 08:00] VITALS: BP 169/58
--- NOTE | 2020-05-21 08:07 | NUR ---
UP WITH THERAPY TAKING SHOWER, DENEIS ANY OTHER NEEDS AT THIS TIME, C/L AND FLUIDS IN REACH.
[2020-05-21 10:24] LABS: CALCIUM 8.6 mg/dL (8.5-10.1); CARBON DIOXIDE 28.5 mmol/L (21.0-32.0); CREATININE - SERUM 1.6 mg/dL (0.6-1.3); POTASSIUM - SERUM 3.5 mmol/L (3.5-5.1)
[2020-05-21 10:50] LABS: BASOPHILS 0.3 % (0-2); EOSINOPHILS 3.9 % (0-7); HEMATOCRIT 36.9 % (36.0-48.0); HEMOGLOBIN 11.8 g/dL (12-16); IMMATURE GRANULOCYTES 0.6 % (0-5); LYMPHOCYTES 21.3 % (15-50); MCH 29.8 pg (26.0-34.0); MCV 93.2 fL (80.0-100.0); MEAN PLATELET VOLUME 10.5 fL (7.4-10.4); MONOCYTES 7.8 % (2-11); NEUTROPHILS 66.1 % (40-80); PLATELET COUNT 179 10x3/uL (130-400); RBC 3.96 10x6/uL (4.00-5.40); RDW 14.6 % (11.5-14.5); WBC 3.3 10x3/uL (4.8-10.8)
--- NOTE | 2020-05-21 12:00 | NUR ---
UP IN W/C EATING LUNCH, DENIES ANY NEEDS AT THIS TIME, C/L AND FLUIDS IN REACH.
--- NOTE | 2020-05-21 12:25 | NUR ---
I have reviewed this patient and I concur with the Shift Assessment completed by the Licensed Practical Nurse today this shift.
[2020-05-21 14:31] VITALS: Ht 170.2 cm; Wt 77.1 kg
--- NOTE | 2020-05-21 16:23 | NUR ---
RESTING IN BED WITH EYES CLOSED, NO S/S OF DISTRESS NOTED, RESP EVEN AND UNLABORED, C/L AND FLUIDS IN REACH.
--- NOTE | 2020-05-21 20:32 | NUR ---
AWAKE AND ALERT. RESPIRATIONS UNLABORED. INCONTINENCE CARE GIVEN. NO NEEDS VOICED AT THIS TIME.
[2020-05-21 22:02] VITALS: BP 151/69
--- NOTE | 2020-05-22 01:16 | NUR ---
RESTING QUIETLY IN BED. RESPIRATIONS UNLABORED. NO DISTRESS NOTED.
--- NOTE | 2020-05-22 02:52 | NUR ---
CONTINUES SLEEPING WITH NO DISTRESS NOTED.
[2020-05-22 07:42] LABS: HEMATOCRIT 34.7 % (36.0-48.0); HEMOGLOBIN 10.9 g/dL (12-16); MCH 28.9 pg (26.0-34.0); MCHC 31.4 g/dL (31.0-37.0); MEAN PLATELET VOLUME 10.6 fL (7.4-10.4); PLATELET COUNT 177 10x3/uL (130-400); RBC 3.77 10x6/uL (4.00-5.40); RDW 14.7 % (11.5-14.5); WBC 2.8 10x3/uL (4.8-10.8)
[2020-05-22 08:00] VITALS: BP 142/73
--- NOTE | 2020-05-22 08:00 | NUR ---
PT RESTING IN BED WITH EYES OPEN CALL LIGHT IN REACH WILL MONITER
[2020-05-22 08:01] LABS: ANION GAP 9.9 mmol/L (8-16); CALCIUM 8.4 mg/dL (8.5-10.1); CARBON DIOXIDE 27.8 mmol/L (21.0-32.0); CREATININE - SERUM 1.4 mg/dL (0.6-1.3); POTASSIUM - SERUM 3.7 mmol/L (3.5-5.1)
--- NOTE | 2020-05-22 11:00 | NUR ---
I have reviewed this patient and I concur with the Shift Assessment completed by the Licensed Practical Nurse today this shift.
[2020-05-22 12:25] LABS: EOSINOPHILS 9 % (0-7); HYPOCHROMASIA OCC; LYMPHOCYTES 28 % (15-50); MONOCYTES 10 % (2-11); NEUTROPHILS 53 % (40-80); PLATELET ESTIMATE NORMAL
--- NOTE | 2020-05-22 14:51 | NUR ---
CARE TEAM MEETING: PATIENT IS NEW TO UNIT AND WILL BE RA AT NEXT MEETING. WILL CONTINUE TO FOLLOW WITH PATIENT.
--- NOTE | 2020-05-22 17:44 | NUR ---
PT RESTING IN BED WITH EYES OPEN CALL LIGHT IN REACH WILL MONITER
--- NOTE | 2020-05-22 19:00 | NUR ---
RECEIVED PT LYING IN BED EYES CLOSED RESTING. HOB ELEVATED. RR EVEN AND UNLABORED. EASILY AROUSED WITH VERBAL STIMULI. DENIES ANY NEEDS OR PAIN. CALL LIGHT WITHIN REACH. FALL PRECAUTIONS IN PLACE. CPOC
[2020-05-22 21:59] VITALS: BP 176/79
--- NOTE | 2020-05-23 00:51 | NUR ---
PT LYING IN BED SUPINE EYES CLOSED RESTING QUIETLY. HOB ELEVATED. RR EVEN AND UNLABORED. CALL LIGHT WITHIN REACH. FALL PRECAUTIONS IN PLACE. CPOC
--- NOTE | 2020-05-23 03:09 | NUR ---
PT LYING IN BED ON LEFT SIDE EYES CLOSED RESTING QUIETLY. HOB ELEVATED. RR EVEN AND UNLABORED. CALL LIGHT WITHIN REACH. FALL PRECAUTIONS IN PLACE. CPOC
--- NOTE | 2020-05-23 04:15 | NUR ---
INCONTINENCE CARE PROVIDED. LARGE URINE INCONTINENCE. PROVIDED CHRISTI CARE BUTTPASTE APPLIED TO GROIN D/T REDNESS. BUTTPASTE APPLIED TO BUTTOCKS FOR PROTECTION. COMPLETE LINEN CHANGE DONE. PT DENIES ANY OTHER NEEDS. DENIES PAIN. CALL LIGHT AND WATER WITHIN REACH. FALL PRECAUTIONS IN PLACE. CPOC
--- NOTE | 2020-05-23 07:31 | NUR ---
RESTING IN BED WITH EYES CLOSED, NO S/S OF DISTRESS NOTED, RESP EVEN AND UNLABORED, C/L AND FLUIDS IN REACH.
[2020-05-23 07:38] VITALS: BP 145/55
--- NOTE | 2020-05-23 10:10 | NUR ---
PATIENT REFUSED SHOWER THIS MORNING AFTER TWO ATTEMPTS BY THIS NURSE AND AID. NOTIFIED SON WHEN HE CALLED IN TO CHECK ON MOM. SON STATED THAT WAS FINE.
--- NOTE | 2020-05-23 11:00 | NUR ---
RAPID RESPONSE CALLED D/T PT LOSING CONSCIOUSNESS DURING OT. PT PLACED ON BACKBOARD. VS TAKEN. BP 157/60 AND HR 54. PT REGAINED CONSCIOUSNESS AND WAS ABLE TO ANSWER QUESTIONS WITHIN A FEW MINUTES. DR EMANUEL NOTIFIED. ORDERS FOR TELEMETRY OBTAINED.
--- NOTE | 2020-05-23 11:36 | NUR ---
NOTIFIED SON OF RAPID RESPONSE AT 11:30AM
--- NOTE | 2020-05-23 12:06 | NUR ---
RESTING IN BED, HOB AT 30 DEGREES, NO S/S OF DISTRESS NOTED, RESP EVEN AND UNLABORED, DENIES ANY NEEDS AT THIS TIME, C/L AND FLUIDS IN REACH.
--- NOTE | 2020-05-23 15:52 | NUR ---
RESTING IN BED ALERT AND ORIENTED, DENIES ANY NEEDS AT THIS TIME, C/L AND FLUIDS IN REACH.
--- NOTE | 2020-05-23 18:55 | NUR ---
RECEIVED PT LYING IN BED AWAKE. HOB ELEVATED. ALERT AND ORIENTED X4. DENIES ANY PAIN. PROVIDED CHRISTI AND INCONTINENCE CARE. MODERATE URINE INCONTINENCE. BUTTPASTE APPLIED TO BUTTOCKS AND GROIN. DENIES ANY OTHER NEEDS. CALL LIGHT AND WATER WITHIN REACH. FALL PRECAUTIONS IN PLACE. CPOC
[2020-05-23 21:48] VITALS: BP 173/77
--- NOTE | 2020-05-23 23:48 | NUR ---
QUIET HOURS. PT LYING IN BED SUPINE EYES CLOSED RESTING QUIETLY. HOB ELEVATED. RR EVEN AND UNLABORED. CALL LIGHT WITHIN REACH. FALL PRECAUTIONS IN PLACE. CPOC
--- NOTE | 2020-05-24 01:57 | NUR ---
PT LYING IN BED EYES CLOSED RESTING QUIETLY. RR EVEN AND UNLABORED. CALL LIGHT WITHIN REACH. FALL PRECAUTIONS IN PLACE. CPOC
--- NOTE | 2020-05-24 04:58 | NUR ---
PT LYING IN BED EYES CLOSED RESTING QUIETLY. RR EVEN AND UNLABORED. CALL LIGHT WITHIN REACH. FALL PRECAUTIONS IN PLACE. CPOC
--- NOTE | 2020-05-24 06:00 | NUR ---
INCONTINENCE CARE PROVIDED. LARGE URINE INCONTINENCE. CHRISTI CARE DONE. BUTTPASTE APPLIED TO BUTTOCKS AND GROIN. DENIES ANY PAIN. NO OTHER NEEDS VOICED. CALL LIGHT AND WATER WITHIN REACH. FALL PRECAUTIONS IN PLACE. CPOC
[2020-05-24 06:31] LABS: BASOPHILS 0.3 % (0-2); EOSINOPHILS 4.5 % (0-7); HEMATOCRIT 35.4 % (36.0-48.0); HEMOGLOBIN 11.4 g/dL (12-16); IMMATURE GRANULOCYTES 0.3 % (0-5); LYMPHOCYTES 36.1 % (15-50); MCH 29.8 pg (26.0-34.0); MCHC 32.2 g/dL (31.0-37.0); MCV 92.4 fL (80.0-100.0); MEAN PLATELET VOLUME 10.2 fL (7.4-10.4); MONOCYTES 9.9 % (2-11); NEUTROPHILS 48.9 % (40-80); PLATELET COUNT 176 10x3/uL (130-400); RBC 3.83 10x6/uL (4.00-5.40); RDW 14.4 % (11.5-14.5); WBC 3.1 10x3/uL (4.8-10.8)
[2020-05-24 06:47] LABS: ANION GAP 7.9 mmol/L (8-16); CALCIUM 8.6 mg/dL (8.5-10.1); CARBON DIOXIDE 31.2 mmol/L (21.0-32.0); CREATININE - SERUM 1.4 mg/dL (0.6-1.3); POTASSIUM - SERUM 4.1 mmol/L (3.5-5.1)
[2020-05-24 08:00] VITALS: BP 165/57
--- NOTE | 2020-05-24 08:01 | NUR ---
SITTING UP IN BED EATING BREAKFAST, DENEIS ANY NEEDS AT THIS TIME, C/L AND FLUIDS IN REACH.
--- NOTE | 2020-05-24 12:20 | NUR ---
RESTING IN BED WITH EYES CLOSED, RESP EVEN AND UNLABORED, NO S/S OF DISTRESS NOTED, C/L AND FLUIDS IN REACH.
--- NOTE | 2020-05-24 13:30 | NUR ---
PATIENT D/C WITH SON VIA W/C TO HOME, ALL BELONGINGS WITH PATIENT, REVIEWED AND CALLED MEDICATIONS IN TO PHARMACY. PERSCRIPTIONS GIVEN TO PATIENT. REVIEWED ALL FOLLOW UP APPOINTMENTS WITH PATIENT AND SON.
--- NOTE | 2020-05-24 14:09 | NUR ---
Nutrition Follow-up: Diet: Cardiac Mech Soft with thin liquids + Boost with lunch and dinner PO intake: ~47% average x last 9 meals. She reports a good appetite. States that she has been drinking Boost but that she would prefer vanilla or strawberry instead of chocolate. Last BM: 05/23/20 x 2. Wt: 170# (05/21/20) Meds reviewed. Labs noted: GFR 45(L) Recommend continue PO diet per [employer] recommendations. Will update oral nutrition supplement preferences. RD following.
--- NOTE | 2020-05-24 15:55 | NUR ---
RESTING IN BED, DENIES ANY NEEDS AT THIS TIME, C/L AND FLUIDS IN REACH.
--- NOTE | 2020-05-24 19:17 | NUR ---
AWAKE AND ALERT. RESTING IN BED WITH RESPIRAITONS UNLABORED. REMAINS IN CONTACT ISOLATION. NO DISTRESS NOTED. CALL LIGHT IN REACH.
[2020-05-24 19:42] VITALS: BP 144/67
--- NOTE | 2020-05-25 01:23 | NUR ---
RESTING IN BED WITH EYES CLOSED AND RESPIRATIONS UNLABORED. REMAINS IN CONTACT ISOLATION. NO DISTRESS NOTED.
--- NOTE | 2020-05-25 05:22 | NUR ---
QUIET HOURS. INCONTINENCE CARE GIVEN. REPOSITIONED FOR COMFORT. CALL LIGHT IN REACH.
[2020-05-25 08:00] VITALS: BP 165/73
--- NOTE | 2020-05-25 08:00 | NUR ---
PT RESTING IN BED WITH EYES OPEN CALL LIGHT IN REACH WILL MONITER
--- NOTE | 2020-05-25 15:32 | NUR ---
I have reviewed this patient and I concur with the Shift Assessment completed by the Licensed Practical Nurse today this shift.
--- NOTE | 2020-05-25 18:26 | NUR ---
PT RESTING IN BED WITH EYES OPEN CALL LIGHT IN REACH WILL MONITER
[2020-05-25 19:57] VITALS: BP 123/69
--- NOTE | 2020-05-25 20:00 | NUR ---
AWAKE AND ALERT. RESTING IN BED WITH RESPIRAITONS UNLABORED. IN CONTACT ISOLATION. FAMILY MEMBER VISITING. NO ACUTE DISTRESS NOTED.
--- NOTE | 2020-05-25 22:00 | NUR ---
INCONTINENT CARE GIVEN, TURNED AND REPOSITIONED FOR COMFORT.
--- NOTE | 2020-05-26 00:15 | NUR ---
SLEEPING WITH RESPIRAITONS UNLABORED. REMAINS IN CONTACT ISOLATION.
--- NOTE | 2020-05-26 02:27 | NUR ---
RESTING WITH EYES CLOSED AND RESPIRAITONS UNLABORED. NO DISTRESS NOTED.
--- NOTE | 2020-05-26 05:28 | NUR ---
INCONTINENCE CARE GIVEN. NO ACUTE CHANGES THIS SHIFT. REMAINS IN CONTACT ISOLATION.
--- NOTE | 2020-05-26 08:31 | NUR ---
PT RESTING IN BED WITH EYES OPEN NO PROBLEMS CALL LIGHT IN REACH WILL MONITER
[2020-05-26 11:39] VITALS: BP 165/73
--- NOTE | 2020-05-26 17:17 | NUR ---
I have reviewed this patient and I concur with the Shift Assessment completed by the Licensed Practical Nurse today this shift.
--- NOTE | 2020-05-26 17:54 | NUR ---
PT RESTING IN BED WITH EYES OPEN CALL LIGHT IN REACH WILL MONITER
[2020-05-26 19:55] VITALS: BP 138/68
--- NOTE | 2020-05-26 19:59 | NUR ---
AWAKE AND ALERT. INCONTINENT EPISODE OF URINE. PADS CHANGED AND CHRISTI-AREA CLEANED. REPOSITIONED FOR COMFORT. RESPIRAITONS UNLABORED. REMAINS IN CONTACT ISOLATION. CALL LIGHT IN REACH.
--- NOTE | 2020-05-26 23:04 | NUR ---
RESTING IN BED WITH EYES CLOSED AND RESPIRAITONS UNLABORED. INHALATION THERAPY AIDE TRACING SINUS JASWANT AT 52/MINUTE NO DISTRESS NOTED.
--- NOTE | 2020-05-27 01:29 | NUR ---
SLEEPING WITH RESPIRAITONS UNLABORED. NO DISTRESS NOTED.
--- NOTE | 2020-05-27 05:02 | NUR ---
QUIET HOURS. NO ACUTE CHANGES IN CONDITION THIS SHIFT. RESTING IN BED WITH RESPIRAITONS UNLABORED. CONTACT ISOLATION IN PLACE.
--- NOTE | 2020-05-27 07:15 | NUR ---
RESTING WO DISTRESS NOTED. CL IN REACH. CONTACT ISOLATION PRECAUTIONS ESBL.
[2020-05-27 07:17] LABS: ANION GAP 8.7 mmol/L (8-16); CARBON DIOXIDE 31.6 mmol/L (21.0-32.0); CREATININE - SERUM 1.4 mg/dL (0.6-1.3); POTASSIUM - SERUM 4.3 mmol/L (3.5-5.1)
[2020-05-27 08:03] VITALS: BP 153/68
[2020-05-27 08:24] LABS: HEMOGLOBIN 11.3 g/dL (12-16); LYMPHOCYTES 38.5 % (15-50); MCH 29.7 pg (26.0-34.0); MCHC 32.3 g/dL (31.0-37.0); MCV 92.1 fL (80.0-100.0); MEAN PLATELET VOLUME 10.9 fL (7.4-10.4); NEUTROPHILS 49.4 % (40-80); PLATELET COUNT 167 10x3/uL (130-400); WBC 3.2 10x3/uL (4.8-10.8)
--- NOTE | 2020-05-27 10:48 | NUR ---
PARTICIPATED IN THERAPY THIS AM.
--- NOTE | 2020-05-27 13:13 | NUR ---
SHOWER PER OT.
--- NOTE | 2020-05-27 14:36 | NUR ---
NO CHANGE IN ASSESSMENT. SITTING IN WC WITH ST IN ROOM.
--- NOTE | 2020-05-27 19:00 | NUR ---
RECEIVED PT LYING IN BED AWAKE. ALERT AND ORIENTED X4. DENIES ANY NEEDS OR PAIN. NO SIGNS OF ACUTE DISTRESS NOTED. SHIFT ASSESSMENT COMPLETE. CALL LIGHT AND WATER WITHIN REACH. FALL PRECAUTIONS IN PLACE. CPOC
[2020-05-27 20:26] VITALS: BP 145/73
--- NOTE | 2020-05-28 01:28 | NUR ---
INCONTINENCE CARE PROVIDED. MODERATE URINE INCONTINENCE. PERICARE DONE. BUTTPASTE APPLIED TO BUTTOCKS FOR PROTECTION. NO OTHER NEEDS VOICED. CALL LIGHT WITHIN REACH. FALL PRECAUTIONS IN PLACE. CPOC
--- NOTE | 2020-05-28 04:34 | NUR ---
INCONTINENCE AND PERICARE PROVIDED. MODERATE URINE INCONTINENCE. BUTTPASTE APPLIED TO GROIN AND BUTTOCKS FOR PROTECTION. NO OTHER NEEDS VOICED. CALL LIGHT WITHIN REACH. FALL PRECAUTIONS IN PLACE. CPOC
--- NOTE | 2020-05-28 06:54 | NUR ---
RESTING WO DISTRESS. RESP EVEN AND UNLABORED.CL IN REACH.
[2020-05-28 07:55] VITALS: BP 137/69
--- NOTE | 2020-05-28 11:42 | NUR ---
SITTING UP IN CHAIR IN ROOM. NO C/O PAIN. CL IN REACH.
--- NOTE | 2020-05-28 15:21 | NUR ---
NO CHANGE IN ASSESSMENT. RESTING IN ROOM WO C/O PAIN. CL IN REACH.
--- NOTE | 2020-05-28 15:35 | NUR ---
Nutrition Follow-up: Diet: Cardiac [facility] Soft + Ensure TID PO intake: ~56% average x last 9 meals. She reports that her appetite is "good." States that she is drinking Ensure. She gave food preferences. Last BM: 05/24/20. Wt: 170# (05/21/20), no new weight Meds noted: rowdy. Labs noted: BUN 27(H), Cr 1.4(H), GFR 45(L) Recommend continue current diet and oral nutrition supplements. Will update diet order with food preferences. RD following.
--- NOTE | 2020-05-28 18:28 | NUR ---
SITTING IN CHAIR. RESP EVEN AND UNLAABORED. CL IN REACH.
[2020-05-28 18:55] VITALS: BP 145/64
--- NOTE | 2020-05-28 18:55 | NUR ---
RECEIVED PT LYING IN BED AWAKE. ALERT AND ORIENTED X4. DENIES ANY PAIN OR NEEDS. NO SIGNS OF ACUTE DISTRESS NOTED. VS STABLE. SHIFT ASSESSMENT COMPLETE. CALL LIGHT AND WATER WITHIN REACH. FALL PRECAUTIONS IN PLACE. CPOC
--- NOTE | 2020-05-28 23:48 | NUR ---
PT LYING IN BED SUPINE EYES CLOSED RESTING QUIETLY. HOB ELEVATED. RR EVEN AND UNLABORED. CALL LIGHT WITHIN REACH. FALL PRECAUTIONS IN PLACE. CPOC
--- NOTE | 2020-05-29 00:35 | NUR ---
INCONTINENCE AND PERICARE PROVIDED. LARGE URINE INCONTINENCE. BUTTPASTE APPLIED TO GROIN AND BUTTOCKS FOR PROTECTION. NO OTHER NEEDS VOICED. CALL LIGHT WITHIN REACH. FALL PRECAUTIONS IN PLACE. CPOC
--- NOTE | 2020-05-29 03:10 | NUR ---
PT LYING IN BED SUPINE EYES CLOSED RESTING QUIETLY. HOB ELEVATED. RR EVEN AND UNLABORED. CALL LIGHT WITHIN REACH. FALL PRECAUTIONS IN PLACE. CPOC
--- NOTE | 2020-05-29 05:15 | NUR ---
INCONTINENCE AND PERICARE PROVIDED. MODERATE URINE INCONTINENCE. BUTTPASTE APPLIED TO GROIN AND BUTTOCKS. PT DENIES ANY OTHER NEEDS OR PAIN. CALL LIGHT AND WATER WITHIN REACH. FALL PRECAUTIONS IN PLACE. CPOC
--- NOTE | 2020-05-29 08:09 | NUR ---
UP IN BED EATING BREAKFAST, DENIES ANY NEEDS AT THIS TIME, C/L AND FLUIDS IN REACH.
[2020-05-29 08:21] LABS: ANION GAP 8.4 mmol/L (8-16); CALCIUM 9.1 mg/dL (8.5-10.1); CREATININE - SERUM 1.6 mg/dL (0.6-1.3); POTASSIUM - SERUM 4.4 mmol/L (3.5-5.1)
[2020-05-29 08:27] VITALS: BP 148/84
[2020-05-29 08:39] LABS: HEMATOCRIT 33.5 % (36.0-48.0); HEMOGLOBIN 10.9 g/dL (12-16); LYMPHOCYTES 32.7 % (15-50); MCH 30.2 pg (26.0-34.0); MCHC 32.5 g/dL (31.0-37.0); MCV 92.8 fL (80.0-100.0); NEUTROPHILS 53.6 % (40-80); PLATELET COUNT 162 10x3/uL (130-400); RBC 3.61 10x6/uL (4.00-5.40); RDW 13.9 % (11.5-14.5); WBC 3.1 10x3/uL (4.8-10.8)
--- NOTE | 2020-05-29 11:00 | NUR ---
I have reviewed this patient and I concur with the Shift Assessment completed by the Licensed Practical Nurse today this shift.
--- NOTE | 2020-05-29 12:06 | NUR ---
SITTING UP IN W/C WATCHING TV, DENIES ANY NEEDS AT THIS TIME, C/L AND FLUIDS IN REACH.
--- NOTE | 2020-05-29 14:50 | NUR ---
CARE TEAM MEETING: PATIENT IS DOING WELL IN THERAPY. TENATIVE DISCHARGE DATE IS 06/07/20. WILL CONTINUE TO FOLLOW WITH PATIENT.
--- NOTE | 2020-05-29 15:58 | NUR ---
UP IN W/C WITH THERAPY, DENIES ANY NEEDS AT THIS TIME.
--- NOTE | 2020-05-29 19:23 | NUR ---
AWAKE AND ALERT. RESPIRATIONS UNLABORED. NO DISTRESS NOTED. INCONTINENT OF URINE. INCONTINENCE CARE GIVEN. IN CONTACT ISOLATION. CALL LIGHT IN REACH.
[2020-05-29 21:29] VITALS: BP 155/68
--- NOTE | 2020-05-30 03:08 | NUR ---
SLEEPING WITH RESPIRATIONS UNLABORED. CONTACT ISOLATION IN PLACE. NO DISTRESS NOTED.
--- NOTE | 2020-05-30 05:04 | NUR ---
QUIET HOURS. NO ACUTE CHANGES IN CONDITION THIS SHIFT. HAD INCONTINENT EPISODE OF URINE, CLEANED AND PADS CHANGED. REMAINS IN CONTACT ISOLATION. RESPIRATIONS UNLABORED. NO DISTRESS NOTED. CALL LIGHT IN REACH.
--- NOTE | 2020-05-30 07:53 | RHP ---
PATIENT: CHRISTAL HANLEY MEDICAL RECORD: [id number] ACCOUNT: [id number] LOCATION:[id number] : 32 ADMISSION DATE: 05/20/20 REHABILITATION HISTORY AND PHYSICAL EXAMINATION POST ADMISSION PHYSICIAN EXAMINATION ADMITTING DIAGNOSIS: Cerebrovascular accident. 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 She also complained of a headache at that time. The patient was seen and evaluated. She had a V/Q scan, which was positive for PE. She was also noted to have a UTI, which grew out MRSA. She was placed in contact isolation. Pulmonary was consulted. The patient was anemic and leukopenic. Oncology also saw her during her stay. The patient will have a CT scan and aggressive treatment may be in a couple months for her workup of her anemia. During her initial hospitalization, she developed left facial droop and dysarthric speech. She is noted to have a change in mentation with some right-sided weakness. 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 Speech eval did a bedside swallow eval. It showed no overt signs of aspiration. She is on mechanical soft diet with chopped meats and thin liquids and was recommended speech therapy follow up for safety, dietary tolerance and dietary upgrades. Previously, she was living with her son, was independent with ADLs and mobility. She was able to navigate up 16 stairs to go to her apartment. She had prolonged immobility, progressive generalized weakness. She is a very fatigued, has limited flexion and extension, her proximal muscle strength is decreased. She is mod to max assist for ADLs and needs to be able to get up from [id number] and [id number]. She and her son are motivated for her to return back home. COMORBIDITIES: Include acute early subacute infarction of the anterior aspect of the pontomedullary junction. She has got AFib, acute mental status changes, anemia, bradycardia, congestive heart failure, decrease in mobility, decrease in physical functioning, difficulty walking and dysarthria. PAST MEDICAL HISTORY: Significant for CHF, got a history of hypertension. PAST SURGICAL HISTORY: Includes gallbladder surgery. ALLERGIES: CODEINE AND ASPIRIN. CURRENT MEDICATIONS: Include Pepcid 40 mg daily, spironolactone 25 mg daily, Isordil 5 mg daily, she is on Cardura 8 mg daily, atorvastatin 40 mg daily, atenolol 25 mg daily, Xarelto 15 mg b.i.d. with meals, DuoNeb updrafts, Rythmol 225 b.i.d., Keppra 750 b.i.d., Colace 100 mg b.i.d., hydralazine 10 mg every 6 hours p.r.n., Tylenol 500 mg every 6 hours and MiraLax 17 g in 8 ounces of water daily. HABITS: No alcohol or tobacco use notes. FAMILY HISTORY: Noncontributory. SOCIAL HISTORY: The patient hopes to return back home and get back to her prior HISTORY AND PHYSICAL [id number] [facility] level of functioning. REVIEW OF SYSTEMS: GENERAL: Does complain of some weakness and fatigue. HEENT: Denies cold, cough, or congestion. CARDIOVASCULAR: Denies any chest pain. PHYSICAL EXAMINATION: VITAL SIGNS: Stable, afebrile. GENERAL: An elderly female, in no acute distress upon exam. HEENT: Normocephalic and atraumatic. Mucosa moist. NECK: Supple. No lymphadenopathy. LUNGS: Clear at this time. No wheezing, rhonchi or rales. HEART: Irregular rate and rhythm. ABDOMEN: Soft, benign, and nondistended. Positive bowel sounds times 4. EXTREMITIES: No clubbing, cyanosis. She does have a little bit of edema. NEUROLOGIC: She does have some noted weakness. LABORATORY DATA: Pending this morning. ASSESSMENT: This is an 89-year-old female patient admitted to rehab with a working diagnosis of cerebrovascular accident. The patient has potential to make improvement. We instituted the following multidisciplinary therapies including but not limited to physical, occupational, respiratory, speech, nutritional services, prosthetics and orthotics. Given her complex medical condition and risks for more complications, rehabilitation services cannot be provided at a low level of care such as shelter facility. PLAN: 1. [facility] to include the following disciplines; A. Physical therapy to improve gait, all transfer skills and bed mobility to a modified independent level. B. Occupational therapy to improve activities of daily living. C. Case management to help with discharge planning and placement options. D. Nutrition to assist with nutritional needs. E. Rehabilitation nursing to assist in monitoring the patient's underlying medical conditions and to assist with any type of bowel or bladder management. 2. The patient's current medication and medical care will be continued. 3. The patient will be placed on standard fall precautions. 4. The patient's estimated length of stay is approximately 7-10 days. 5. We will discuss this patient during care team staff meeting this week and I will see again in the a.m. TRANSINT:[id number] Voice Confirmation ID: [id number] DOCUMENT ID: [id number] FRANNY notes whether there has been none or any medical/functional change since admission: - No change since preadmission screen. FRANNY attests patient continues to be appropriate for IRF: - Continues to be appropriate. HISTORY AND PHYSICAL [id number] CHRISTAL HANLEY JOHN SCOTT MD at 0753 CC: [id number] DICTATION DATE: 05/21/20 07 INSPECTOR FINISHING: 05/21/20 1056 ADM IN [facility] [address] [place] [address]
--- NOTE | 2020-05-30 08:00 | NUR ---
PT RESTING IN BED WITH EYES OPEN CALL LIGHT IN REACH WILL MONITER
--- NOTE | 2020-05-30 12:00 | NUR ---
I have reviewed this patient and I concur with the Shift Assessment completed by the Licensed Practical Nurse today this shift.
--- NOTE | 2020-05-30 13:24 | NUR ---
PT RESTING IN BED WITH EYES OPEN CALL LIGHT IN REACH WILL MONITER
--- NOTE | 2020-05-30 18:41 | NUR ---
PT RESTING IN BED WITH EYES OPEN CALL LIGHT IN REACH NO PROBLEMS WILL MONITER
--- NOTE | 2020-05-30 20:02 | NUR ---
AWAKE AND ALERT. ASSISTED TO BATHROOM AND BACK TO BED. REMAINS IN CONTACT ISOLATION. RESPIRAITONS UNLABORED. NO DISTRESS NOTED.
--- NOTE | 2020-05-31 02:51 | NUR ---
SLEEPING WITH NO DISTRESS NOTED.
--- NOTE | 2020-05-31 05:17 | NUR ---
INCONTINENCE CARE GIVEN. ASSISTED TO TOILET AND HAD A LARGE BM. BACK TO BED WITH ASSISTANCE. CONTACT ISOLATION IN PLACE.
[2020-05-31 06:09] LABS: ANION GAP 7.6 mmol/L (8-16); CALCIUM 8.9 mg/dL (8.5-10.1); CARBON DIOXIDE 31.8 mmol/L (21.0-32.0); CREATININE - SERUM 1.7 mg/dL (0.6-1.3); POTASSIUM - SERUM 4.4 mmol/L (3.5-5.1)
--- NOTE | 2020-05-31 07:25 | NUR ---
PT RESTING IN BED WITH EYES OPEN CALL LIGHT IN REACH WILL MONITER
[2020-05-31 07:44] LABS: HEMATOCRIT 35.2 % (36.0-48.0); HEMOGLOBIN 11.2 g/dL (12-16); LYMPHOCYTES 40.6 % (15-50); MCH 29.8 pg (26.0-34.0); MCHC 31.8 g/dL (31.0-37.0); MCV 93.6 fL (80.0-100.0); MEAN PLATELET VOLUME 11.2 fL (7.4-10.4); NEUTROPHILS 42.6 % (40-80); PLATELET COUNT 160 10x3/uL (130-400); RBC 3.76 10x6/uL (4.00-5.40); RDW 14.1 % (11.5-14.5); WBC 3.4 10x3/uL (4.8-10.8)
[2020-05-31 14:55] VITALS: BP 158/74
--- NOTE | 2020-05-31 15:00 | NUR ---
PT RESTING IN BED WITH EYES OPEN CALL LIGHT IN REACH WILL MONITER
[2020-05-31 19:20] VITALS: BP 121/64
--- NOTE | 2020-05-31 19:20 | NUR ---
RECEIVED PT SITTIN UP IN W/C. ALERT AND ORIENTED X4. ASSISTED PT TO RESTROOM WITH MIN ASSIST. MODERATE CLEAR YELLOW VOID. ASSISTED PT WITH TRANSFER FROM W/C TO BED WITH MIN ASSIST. NO OTHER NEEDS VOICED. VS STABLE. SHIFT ASSESSMENT COMPLETE. DENIES ANY PAIN. CALL LIGHT AND WATER WITHIN REACH. FALL PRECAUTIONS IN PLACE. CPOC
--- NOTE | 2020-06-01 00:45 | NUR ---
INCONTINENCE CARE PROVIDED. SMALL URINE INCONTINENCE. BUTTPAST APPLIED TO GROIN AND BUTTOCKS FOR PREVENTION/PROTECTION. NO ACUTE CHANGES IN CONDITION NOTED. NO OTHER NEEDS VOICED. DENIES ANY PAIN. CALL LIGHT WITHIN REACH. BED IN LOWEST POSITION. FALL PRECAUTIONS IN PLACE. CPOC
--- NOTE | 2020-06-01 03:08 | NUR ---
PT LYING IN BED EYES CLOSED RESTING QUIETLY. RR EVEN AND UNLABORED. CPOC
--- NOTE | 2020-06-01 05:00 | NUR ---
INCONTINENCE CARE PROVIDED. LARGE URINE INCONTINENCE. BUTTPASTE APPLIED TO BUTTOCKS AND GROIN. EYE DROPS ADMININSTERED PER ORDER. NO ACUTE CHANGES NOTED. PT DENIES ANY PAIN. NO OTHER CONCERNS VOICED. CALL LIGHT AND WATER WITHIN REACH. FALL PRECAUTIONS IN PLACE. CPOC
--- NOTE | 2020-06-01 08:15 | NUR ---
SITTING UP IN BED EATING BREAKFAST, DENIES ANY NEEDS AT THIS TIME, C/L AND FLUIDS IN REACH.
[2020-06-01 08:18] VITALS: BP 139/69
--- NOTE | 2020-06-01 12:00 | NUR ---
SITTING UP IN BED EATING LUNCH, DENIES ANY NEEDS AT THIS TIME, C/L AND FLUIDS IN REACH.
--- NOTE | 2020-06-01 17:00 | NUR ---
RESTING IN BED WATCHING TV, DENIES ANY NEEDS AT THIS TIME, C/L AND FLUIDS IN REACH.
--- NOTE | 2020-06-01 18:50 | NUR ---
BEDSIDE REPORT COMPLETE. PT LYING IN BED VISITING WITH SON. ALERT AND ORIENTED X4. DENIES ANY PAIN. NO CONCERNS VOICED. CALL LIGHT AND WATER WITHIN REACH. FALL PRECAUTIONS IN PLACE. CPOC
--- NOTE | 2020-06-01 19:43 | NUR ---
REPOSITIONED PT IN BED PROPPED UP ON LEFT SIDE PER PT REQUESTS. NO OTHER NEEDS VOICED. SON AT BEDSIDE. VS STABLE. SHIFT ASSESSMENT COMPLETE. DENIES ANY PAIN. NO SIGNS OF ACUTE DISTRESS NOTED. CALL LIGHT AND WATER WITHIN REACH. FALL PRECAUTIONS IN PLACE. CPOC
[2020-06-01 19:45] VITALS: BP 132/64
--- NOTE | 2020-06-02 00:03 | NUR ---
PT LYING IN BED SUPINE EYES CLOSED RESTING. HOB ELEVATED. RR EVEN AND UNLABORED. CALL LIGHT WITHIN REACH. FALL PRECAUTIONS IN PLACE. CPOC
--- NOTE | 2020-06-02 00:16 | NUR ---
INCONTINENCE CARE PROVIDED. SMALL URINE INCONTINENCE. BUTTPASTE APPLIED TO BUTTOCKS AND GROIN FOR BARRIER. EYE DROPS ADMININSTERED. NO OTHER NEEDS VOICED. CALL LIGHT WITHIN REACH. FALL PRECAUTIONS IN PLACE. CPOC
--- NOTE | 2020-06-02 03:32 | NUR ---
PT LYING IN BED EYES CLOSED RESTING. HOB ELEVATED. RR EVEN AND UNLABORED. CALL LIGHT WITHIN REACH. FALL PRECAUTIONS IN PLACE. CPOC
--- NOTE | 2020-06-02 05:10 | NUR ---
INCONTINENCE CARE PROVIDED. MODERATE URINE INCONTINENCE. OFFERED TOILETING, BEDPAN PROVIDED, 300ML CONCENTRATED URINE OUTPUT. BUTTPASTE APPLIED TO BUTTOCKS AND GROIN. NO OTHER NEEDS VOICED. DENIES ANY PAIN. NO ACUTE CHANGES IN CONDITION THIS SHIFT. CALL LIGHT AND WATER WITHIN REACH. FALL PRECAUTIONS IN PLACE. CPOC
--- NOTE | 2020-06-02 08:05 | NUR ---
SITTING UP IN BED EATING BREAKFAST, DENIES ANY NEEDS AT THIS TIME, C/L AND FLUIDS IN REACH.
--- NOTE | 2020-06-02 08:52 | NUR ---
PATIENT REFUSED LIPITOR THIS MORNING.
--- NOTE | 2020-06-02 12:16 | NUR ---
SITTING UP IN W/C EATING LUNCH, DENIES ANY NEEDS AT THIS TIME, C/L AND FLUIDS IN REACH.
--- NOTE | 2020-06-02 15:54 | NUR ---
RESTING IN BED WATCHING TV, DENIES ANY NEEDS AT THIS TIME, C/L AND FLUIDS IN REACH.
--- NOTE | 2020-06-02 17:15 | NUR ---
I have reviewed this patient and I concur with the Shift Assessment completed by the Licensed Practical Nurse today this shift.
--- NOTE | 2020-06-02 18:45 | NUR ---
PT HAVING RED TINGED URINE WITH SOME DISCOMFORT AND FREQUENCY. CALLED DR. EMANUEL AND LEFT VM WITH ISSUES. PT HAS HISTORY OF MRSA URINE. PT IS NO LONGER ON ABX. WILL AWAIT CALL BACK FROM DR. EMANUEL.
[2020-06-02 18:55] VITALS: BP 111/75
--- NOTE | 2020-06-02 18:55 | NUR ---
RECEIVED PT LYING IN BED AWAKE. ALERT AND ORIENTED X4. DENIES ANY PAIN. EXPIRATORY WHEEZES IN RML ON AUSCULATION. ENCOURAGED PT TO TCDB WHEEZING SUBSIDED. VS STABLE. SHIFT ASSESSMENT COMPLETE PER FLOWSHEET. NO CONCERNS VOICED. CALL LIGHT AND WATER WITHIN REACH. FALL PRECAUTIONS IN PLACE. CPOC
--- NOTE | 2020-06-02 21:40 | NUR ---
PLACED PT ON BEDPAN. DARK BLOOD TINGED URINE NOTED. PT DENIES ANY BURNING WITH URINATION BUT DOES C/O FREQUENCY WHICH IS NEW. DR. EMANUEL HAS BEEN NOTIFIED. NO OTHER CONCERNS VOICED. CALL LIGHT WITHIN REACH. FALL PRECAUTIONS IN PLACE. CPOC
--- NOTE | 2020-06-02 22:53 | NUR ---
PT LYING IN BED SUPINE EYES CLOSED RESTING COMFORTABLY. HOB ELEVATED. RR EVEN AND UNLABORED. CALL LIGHT WITHIN REACH. FALL PRECAUTIONS IN PLACE. CPOC
--- NOTE | 2020-06-03 00:44 | NUR ---
INCONTINENCE CARE PROVIDED. MED BLOOD TINGED URINE INCONTINENCE. BUTTPASTE APPLIED TO BUTTOCKS AND GROIN. NO OTHER NEEDS VOICED. CALL LIGHT WITHIN REACH. FALL PRECAUTIONS IN PLACE. CPOC
--- NOTE | 2020-06-03 02:20 | NUR ---
INCONTINENCE CARE PROVIDED. MODERATE BLOOD TINGED VOID. BUTTPASTE APPLIED TO BUTTOCKS AND GROIN. NO OTHER NEEDS VOICED. CALL LIGHT AND WATER WITHIN REACH. FALL PRECAUTIONS IN PLACE. CPOC
--- NOTE | 2020-06-03 04:32 | NUR ---
INCONTIENCE CARE PROVIDE. URINE CONTINENCE. BUTTPASTE APPLIED TO BUTTOCKS AND GROIN. NO OTHER NEEDS VOICED. DENIES PAIN. CALL LIGHT WITHIN REACH. FALL PRECAUTIONS IN PLACE. CPOC
--- NOTE | 2020-06-03 05:46 | NUR ---
PT LYING IN BED SUPINE EYES CLOSED RESTING COMFORTABLY. RR EVEN AND UNLABORED. CALL LIGHT WITHIN REACH. FALL PRECAUTIONS IN PLACE. CPOC
[2020-06-03 08:30] VITALS: BP 171/80
--- NOTE | 2020-06-03 09:41 | NUR ---
PARTICIPATING IN THERAPY. NO DISTRESS NOTED.
--- NOTE | 2020-06-03 11:02 | NUR ---
NO CHANGE IN ASSESSMENT. NO C/O PAIN. RESTING IN ROOM AT THIS TIME.
--- NOTE | 2020-06-03 11:03 | NUR ---
Nutrition Follow-up: [facility], thin liquids + Ensure TID PO intake: 75-100% x last 7 meals Last BM: 06/02/20. WT: 170# (05/21/20), no new weight Meds reviewed. Labs noted: BUN 34(H), Cr 1.7(H), GFR 36(L) Recommend continue current diet. RD following.
--- NOTE | 2020-06-03 14:49 | NUR ---
HAD AFTERNOON THERAPY. RETURNED TO ROOM NOW AT THIS TIME. NO DISTRESS NOTED. CL IN REACH.
[2020-06-03 17:10] LABS: BILIRUBIN NEGATIVE (NEGATIVE); GLUCOSE NEGATIVE (NEGATIVE); KETONE NEGATIVE (NEGATIVE); NITRITE NEGATIVE (NEGATIVE); UROBILINOGEN NORMAL (NORMAL)
[2020-06-03 17:20] LABS: RED CELLS - URINE >50 /hpf (0-5); WHITE CELLS - URINE 0-5 /hpf (NEGATIVE)
[2020-06-03 17:21] LABS: BACTERIA FEW /hpf (NEGATIVE); EPITHELIAL CELLS 0-5 /hpf (0-5)
--- NOTE | 2020-06-03 19:30 | NUR ---
AWAKE AND ALERT. RESTING IN ROOM TALKING WITH SON. SON ASSISTED HER TO BED. SON WANTED MESSAGE LEFT FOR DR EMANUEL TO CALL HIM TOMORROW. MESSAGE LEFT ON ROUNDING SHEET.
[2020-06-03 20:00] VITALS: BP 130/62
--- NOTE | 2020-06-04 01:18 | NUR ---
SLEEPING WITH RESPIRATIONS UNLABORED. NO DISTRESS NOTED.
--- NOTE | 2020-06-04 06:48 | NUR ---
QUIET HOURS. NO ACUTE CHANGES IN CONDITIONT THIS SHIFT. RESTING IN BED WITH NO DISTRESS NOTED. CONTACT ISOLATION IN PLACE.
[2020-06-04 08:00] VITALS: BP 140/71
--- NOTE | 2020-06-04 08:00 | NUR ---
SHIFT ASSMT COMPLETED.
--- NOTE | 2020-06-04 19:53 | NUR ---
AWAKE AND ALERT. RESTING IN BED WITH RESPIRAITONS UNLABORED. CONTACT ISOLATION IN PLACE. NO DISTRESS NOTED. CALL LIGHT IN REACH.
[2020-06-04 20:00] VITALS: BP 134/69
--- NOTE | 2020-06-05 01:19 | NUR ---
RESTING IN BED WITH EYES CLOSED AND RESPIRATIONS UNLABORED. REMAINS IN CONTACT ISOLATION. NO DISTRESS NOTED.
--- NOTE | 2020-06-05 02:30 | NUR ---
SLEEPING WITH RESPIRATIONS UNLABORED. NO DISTRESS NOTED.
--- NOTE | 2020-06-05 06:03 | NUR ---
QUIET HOURS. SLEPT IN LONG INTERVALS. CONTINUES TO HAVE HEMATURIA. URINE IS DARK PINK. DENIES PAIN. RESPIRATIONS UNLABORED. CONTACT ISOLATION IN PLACE.
[2020-06-05 08:00] VITALS: BP 159/72
[2020-06-05 08:47] LABS: BASOPHILS 0.3 % (0-2); EOSINOPHILS 3.5 % (0-7); HEMATOCRIT 34.4 % (36.0-48.0); HEMOGLOBIN 10.8 g/dL (12-16); IMMATURE GRANULOCYTES 0.3 % (0-5); LYMPHOCYTES 25.8 % (15-50); MCH 29.3 pg (26.0-34.0); MCHC 31.4 g/dL (31.0-37.0); MCV 93.5 fL (80.0-100.0); MEAN PLATELET VOLUME 11.1 fL (7.4-10.4); MONOCYTES 9.6 % (2-11); NEUTROPHILS 60.5 % (40-80); PLATELET COUNT 187 10x3/uL (130-400); RBC 3.68 10x6/uL (4.00-5.40); RDW 14.3 % (11.5-14.5); WBC 3.8 10x3/uL (4.8-10.8)
[2020-06-05 09:06] LABS: ANION GAP 8.9 mmol/L (8-16); CARBON DIOXIDE 31.5 mmol/L (21.0-32.0); CREATININE - SERUM 1.6 mg/dL (0.6-1.3); POTASSIUM - SERUM 4.4 mmol/L (3.5-5.1)
--- NOTE | 2020-06-05 09:19 | NUR ---
Nutrition Follow-up: Diet: Cardiac [facility] Soft with thin liquids + Ensure TID PO intake: 75-100% Last BM: 06/04/20. WT: 170# (05/21/20), no new weight Meds reviewed. Labs noted: BUN 31(H), Cr 1.6(H), GFR 39(L) Recommend continue current diet. RD following.
--- NOTE | 2020-06-05 13:54 | NUR ---
CARE TEAM MEETING: PATIENT AND SON ATTENDED THE MEETING. THEIR QUESTIONS AND CONCERNS WERE ADDRESSED. TENATIVE DISCHARGE DATE IS 06/10/20. WILL CONTINUE TO FOLLOW WITH PATIENT.
--- NOTE | 2020-06-05 19:08 | NUR ---
RECEIVED PT SITTING UP IN W/C. ALERT AND ORIENTED X4. ASSISTED PT WITH TRANSFER FROM W/C TO BED WITH MIN ASSIST. NO SIGNS OF ACUTE DISTRESS NOTED. DENIES ANY OTHER NEEDS OR PAIN. CALL LIGHT AND WATER WITHIN REACH. FALL PRECAUTIONS IN PLACE. CPOC
[2020-06-05 20:50] VITALS: BP 163/80
--- NOTE | 2020-06-05 22:50 | NUR ---
INCONTINENCE CARE PROVIDED. MED BLOOD TINGED URINE [id number]. BUTTPASTE APPLIED TO GROIN AND BUTTOCKS. NO OTHER NEEDS VOICED. CALL LIGHT AND WATER WITHIN REACH. FALL PRECAUTIONS IN PLACE. CPOC
--- NOTE | 2020-06-06 02:06 | NUR ---
PT LYING IN BED EYES CLOSED RESTING. RR EVEN AND UNLABORED. CALL LIGHT WITHIN REACH. FALL PRECAUTIONS IN PLACE. CPOC
--- NOTE | 2020-06-06 04:49 | NUR ---
PT LYING IN BED SUPINE EYES CLOSED RESTING. HOB ELEVATED. NO ACUTE CHANGES IN CONDITION NOTED THIS SHIFT. CALL LIGHT WITHIN REACH. CPOC
--- NOTE | 2020-06-06 08:00 | NUR ---
SITTING UP IN BED EATING BREAKFAST, DENIES ANY NEEDS AT THIS TIME, C/L AND FLUIDS IN REACH.
[2020-06-06 09:48] VITALS: BP 167/72
--- NOTE | 2020-06-06 11:56 | NUR ---
UP IN W/C WITH THERAPY, DENIES ANY NEEDS AT THIS TIME.
--- NOTE | 2020-06-06 16:00 | NUR ---
RESTING IN BED WATCHING TV, DENIES ANY NEEDS AT THIS TIME, C/L AND FLUIDS IN REACH.
--- NOTE | 2020-06-06 19:12 | NUR ---
RECEIVED PT SITTING UP IN BED AWAKE. ALERT AND ORIENTED X4. ASSISTED PT TO RESTROOM WITH MIN ASSIST. INSTRUCTED PT TO PULL NURSE CORD WHEN FINISHED. PT VERBALIZED UNDERSTANDING. CPOC
[2020-06-06 21:17] VITALS: BP 157/65
--- NOTE | 2020-06-07 01:13 | NUR ---
QUIET HOURS. PT LYING IN BED EYES CLOSED RESTING. HOB ELEVATED. RR EVEN AND UNLABORED. CALL LIGHT WITHIN REACH. FALL PRECAUTIONS IN PLACE. CPOC
--- NOTE | 2020-06-07 03:52 | NUR ---
PT LYING IN BED EYES CLOSED RESTING. RR EVEN AND UNLABORED. LINENS DRY. VERONA LIGHT WITHIN REACH. CPOC
--- NOTE | 2020-06-07 07:56 | NUR ---
SITTING UP IN BED EATING BREAKFAST, DENIES ANY NEEDS AT THIS TIME, C/L AND FLUIDS IN REACH.
[2020-06-07 07:58] VITALS: BP 151/70
--- NOTE | 2020-06-07 12:00 | NUR ---
SITTING UP IN W/C EATING LUNCH, DENIES ANY NEEDS AT THIS TIME, C/L AND FLUIDS IN REACH.
--- NOTE | 2020-06-07 16:12 | NUR ---
RESTING IN BED WITH EYES CLOSED, NO S/S OF DISTRESS NOTED, RESP EVEN AND UNLABORED, C/L AND FLUIDS IN REACH.
[2020-06-07 19:30] VITALS: BP 149/64
--- NOTE | 2020-06-07 20:00 | NUR ---
AWAKE AND ALERT. RESPIRAITONS UNLABORED. INCONTINENT CARE GIVEN. HAS SOME HEMATURIA. DR EMANUEL AWARE. CONTACT ISOLATION IN PLACE. NO ACUTE DISTRESS NOTED.
--- NOTE | 2020-06-08 00:10 | NUR ---
INCONTINENCE CARE GIVEN. RESPIRAITONS UNLABORED. NO DISTRESS NOTED.
--- NOTE | 2020-06-08 05:07 | NUR ---
QUIET HOURS. NO ACUTE CHANGES IN CONDITION THIS SHIFT. REMAINS IN CONTACT ISOLATION. NO DISTRESS NOTED. CALL LIGHT IN REACH.
[2020-06-08 08:00] VITALS: BP 118/68
--- NOTE | 2020-06-08 08:00 | NUR ---
SHIFT ASSMT COMPLETED.
--- NOTE | 2020-06-08 12:00 | NUR ---
SITTING UP EATING .
--- NOTE | 2020-06-08 19:30 | NUR ---
AWAKE AND ALERT. RESTING IN BED WITH RESPRIAITONS UNLABORED. IN CONTACT ISOLATION. NO DISTRESS NOTED. CALL LIGHT IN REACH.
[2020-06-08 20:28] VITALS: BP 98/62
--- NOTE | 2020-06-09 04:57 | NUR ---
QUIET HOURS. NO ACUTE CHANGES IN CONDITION THIS SHIFT. RESTING IN BED WITH NO DISTRESS NOTED. REMAINS IN CONTACT ISOLATION.
--- NOTE | 2020-06-09 08:00 | NUR ---
SHIFT ASSMT COMPLETED.
[2020-06-09 19:26] VITALS: BP 128/59
--- NOTE | 2020-06-09 19:44 | NUR ---
AWAKE AND ALERT. RESTING IN BED WITH RESPRIAITONS UNLABORED. IN CONTACT ISOLATION. NO DISTRESS NOTED. CALL LIGHT IN REACH.
--- NOTE | 2020-06-10 00:58 | NUR ---
RESTING IN BED WITH RESPIRATIONS UNLABORED. NO DISTRESS NOTED.
--- NOTE | 2020-06-10 06:08 | NUR ---
QUIET HOURS. NO ACUTE CHANGES IN CONDITION THIS SHIFT. REMAINS IN CONTACT ISOLATION. NO DISTRESS NOTED.
--- NOTE | 2020-06-10 07:32 | NUR ---
ALERT AND ORIENTED. NO C/O PAIN. CL IN REACH. CONTAACT ISOLATION.
[2020-06-10 07:52] VITALS: BP 146/63
--- NOTE | 2020-06-10 12:21 | NUR ---
NO CHANGE IN ASSESSMENT. SITTING IN CHAIR EATING LUNCH. CL IN REACH.
--- NOTE | 2020-06-10 15:53 | NUR ---
NO CHANGE IN ASSESSMENT. RESTING WO C/O PAIN. CL IN REACH.
--- NOTE | 2020-06-10 17:05 | NUR ---
SHOWER PER NURSING.
--- NOTE | 2020-06-10 19:08 | NUR ---
RECEIVED PT LYING IN BED AWAKE. ALERT AND ORIENTED X4. DENIES ANY NEEDS OR PAIN. NO SIGNS OF ACUTE DISTRESS NOTED. CALL LIGHT AND WATER WITHIN REACH. FALL PRECAUTIONS IN PLACE. CPOC
[2020-06-10 20:50] VITALS: BP 123/63
--- NOTE | 2020-06-11 00:49 | NUR ---
PT LYING IN BED SUPINE EYES CLOSED RESTING. HOB ELEVATED. RR EVEN AND UNLABORED. CALL LIGHT WITHIN REACH. FALL PRECAUTIONS IN PLACE. CPOC
--- NOTE | 2020-06-11 03:38 | NUR ---
PT LYING IN BED EYES CLOSED RESTING. RR EVEN AND UNLABORED. CALL LIGHT WITHIN REACH. FALL PRECAUTIONS IN PLACE. CPOC
--- NOTE | 2020-06-11 06:38 | NUR ---
INCONTINENCE CARE PROVIDED. MED URINE INCONTINENCY. BUTTPASTE APPLIED TO BUTTOCKS FOR BARRIER. NO OTHER CONCERNS VOICED. CALL LIGHT WITHIN REACH. CPOC
[2020-06-11 07:41] VITALS: BP 148/80
[2020-06-11] MEDS ORDERED: TENORMIN25 MG PO (11:32)
[2020-06-11] MEDS ORDERED: PROPAFENONE HC150 MG PO (11:34)
--- NOTE | 2020-06-11 11:35 | NUR ---
PATIENT DSICHARGING HOME TODAY WITH FAMILY. PATIENT DECLINES HOME HEALTH OR ANY NEW DME NEEDS AT THIS TIME. PATIENT INSTRUCTED TO CALL PCP FOR AN APPOINTMENT ([facility]). DR. TRENT 07/08/20 @ 1:30, DR. MEDINA 07/11/20 @ 10:00, DR. RYDER 08/07/20 @ 1:15. CHARISSA SINGED, IMM SERVED AND EXPLAINED. ONE GIVEN TO PATIENT AND ONE FILED IN CHART. DISCHARGE INSTRUCTIONS REVIEWED WITH PATIENT PER PRIMARY NURSE. DISCHARGE INSTRUCTIONS SENT WITH PATIENT FOR PCP APPOINTMENT.
[2020-06-11] MEDS ORDERED: CILOXAN5 ML EACH EYE (11:37)
[2020-06-11] MEDS ORDERED: HYDRALAZINE HCL10 MG PO (11:39)
== END 2020-06-11 12:07 | disposition home or self-care (01) | DRG 56 ==
LOC: D.REHAB 16:09
PROVIDERS: ADMIT Emergency Medicine; ATTEND Emergency Medicine
DX: I69.30 Unspecified sequelae of cerebral infarction (principal); I26.99 Other pulmonary embolism without acute cor pulmonale; N39.0 Urinary tract infection, site not specified; N17.9 Acute kidney failure, unspecified; G81.91 Hemiplegia, unspecified affecting right dominant side; R29.810 Facial weakness; R47.1 Dysarthria and anarthria; R53.1 Weakness; R53.83 Other fatigue; I48.91 Unspecified atrial fibrillation; D64.9 Anemia, unspecified; R00.1 Bradycardia, unspecified; I11.0 Hypertensive heart disease with heart failure; I50.9 Heart failure, unspecified; R26.2 Difficulty in walking, not elsewhere classified; R41.82 Altered mental status, unspecified; R47.81 Slurred speech; R13.12 Dysphagia, oropharyngeal phase; I51.7 Cardiomegaly; I25.10 Atherosclerotic heart disease of native coronary artery without angina pectoris; R60.0 Localized edema

== ENCOUNTER 2020-08-12 20:50 | Inpatient (IN) | payer MEDICARE, BC ==
[~2020-08-12] VITALS: Ht 170.2 cm; Wt 77.3 kg
[~2020-08-12 20:50] MED LIST changes: +CILOXAN5 ML EACH EYE; +HYDRALAZINE HCL10 MG PO; +PROPAFENONE HC150 MG PO
[2020-08-12 21:27] LABS: BASOPHILS 0.2 % (0-2); EOSINOPHILS 0.5 % (0-7); HEMATOCRIT 37.5 % (36.0-48.0); HEMOGLOBIN 11.8 g/dL (12-16); IMMATURE GRANULOCYTES 0.2 % (0-5); LYMPHOCYTES 9.2 % (15-50); MCH 28.8 pg (26.0-34.0); MCHC 31.5 g/dL (31.0-37.0); MCV 91.5 fL (80.0-100.0); MEAN PLATELET VOLUME 10.9 fL (7.4-10.4); MONOCYTES 4.5 % (2-11); NEUTROPHILS 85.4 % (40-80); PLATELET COUNT 172 10x3/uL (130-400); RDW 13.8 % (11.5-14.5); WBC 6.6 10x3/uL (4.8-10.8)
[2020-08-12 21:30] VITALS: BP 172/87
[2020-08-12 21:48] LABS: INR 1.28 (0.85-1.17); PROTIME 15.9 SECONDS (11.6-15.0)
[2020-08-12 21:49] LABS: APTT 30.1 SECONDS (22.8-39.4)
[2020-08-12 21:55] LABS: CALC OSMOLALITY 283 mosm/kg (275-300); CALCIUM 8.9 mg/dL (8.5-10.1); CARBON DIOXIDE 24.3 mmol/L (21.0-32.0); CHLORIDE - SERUM 106 mmol/L (98-107); CREATININE - SERUM 1.6 mg/dL (0.6-1.3); GLUCOSE 123 mg/dL (74-106); POTASSIUM - SERUM 4.1 mmol/L (3.5-5.1); SODIUM 140 mmol/L (136-145); UREA NITROGEN 23 mg/dL (7-18); eGFR NON AFRICAN AMERICAN 32 mL/min (90-120)
[2020-08-12 22:00] LABS: BILIRUBIN NEGATIVE (NEGATIVE); KETONE NEGATIVE (NEGATIVE); NITRITE NEGATIVE (NEGATIVE); UROBILINOGEN NORMAL mg/dL (< 2)
[2020-08-12 22:01] LABS: BACTERIA MODERATE HPF (NONE SEEN); EPITHELIAL CELLS 0-5 /hpf (0-5)
[2020-08-12 22:10] LABS: ALBUMIN 3.7 g/dL (3.4-5.0); ALKALINE PHOSPHATASE 72 U/L (30-120); ALT (SGPT) 8 U/L (10-68); BILIRUBIN - TOTAL 0.82 mg/dL (0.2-1.3); CKMB 0.3 U/L (0.0-3.6); CREATINE KINASE 102 UL (21-215); PRO BNP 497 pg/mL (0-450); PROTEIN - SERUM 7.6 g/dL (6.4-8.2)
[2020-08-12 22:13] LABS: TROPONIN-I < 0.017 ng/mL (0.000-0.060)
[2020-08-12 22:30] VITALS: BP 171/79
[2020-08-12] MEDS ORDERED: ELIQUIS5 MG PO (22:30)
--- NOTE | 2020-08-12 22:51 | NUR ---
VOIDED CLEAR YELLOW URINE IN BEDPAN, INC X 1 ALSO
[2020-08-13] VITALS (11 sets, daily range): BP systolic 146–192; BP diastolic 74–90
[2020-08-13 10:07] LABS: BASOPHILS 0.1 % (0-2); EOSINOPHILS 0.1 % (0-7); HEMATOCRIT 39.9 % (36.0-48.0); HEMOGLOBIN 12.9 g/dL (12-16); IMMATURE GRANULOCYTES 0.3 % (0-5); MCH 29.1 pg (26.0-34.0); MCHC 32.3 g/dL (31.0-37.0); MCV 89.9 fL (80.0-100.0); MEAN PLATELET VOLUME 10.8 fL (7.4-10.4); MONOCYTES 5.4 % (2-11); NEUTROPHILS 84.1 % (40-80); PLATELET COUNT 167 10x3/uL (130-400); RBC 4.44 10x6/uL (4.00-5.40); RDW 13.8 % (11.5-14.5); WBC 6.9 10x3/uL (4.8-10.8)
[2020-08-13 10:17] LABS: ALBUMIN 3.5 g/dL (3.4-5.0); ANION GAP 11.3 mmol/L (8-16); BILIRUBIN - TOTAL 1.09 mg/dL (0.2-1.3); CALCIUM 9.1 mg/dL (8.5-10.1); CARBON DIOXIDE 29.2 mmol/L (21.0-32.0); CREATININE - SERUM 1.7 mg/dL (0.6-1.3); POTASSIUM - SERUM 3.5 mmol/L (3.5-5.1)
[2020-08-13 10:18] LABS: CHOL - HDL RATIO 3.3 ratio (2.3-4.1)
--- NOTE | 2020-08-13 19:00 | NUR ---
REPORT RECIEVED FROM RICHIE DIOP
--- NOTE | 2020-08-13 21:05 | NUR ---
PT BED LINENS CHANGED AT THIS TIME.
[2020-08-14] VITALS (10 sets, daily range): BP systolic 113–186; BP diastolic 57–86; Ht 170.2 cm; Wt 77.3 kg
--- NOTE | 2020-08-14 01:42 | NUR ---
PT LYING SUPINE IN BED RESTING. BREATHS EVEN, VITAL SIGNS STABLE.
[2020-08-14 08:22] LABS: BASOPHILS 0.2 % (0-2); EOSINOPHILS 2.5 % (0-7); HEMATOCRIT 40.2 % (36.0-48.0); HEMOGLOBIN 12.9 g/dL (12-16); IMMATURE GRANULOCYTES 0.2 % (0-5); LYMPHOCYTES 13.8 % (15-50); MCHC 32.1 g/dL (31.0-37.0); MCV 90.3 fL (80.0-100.0); MEAN PLATELET VOLUME 10.7 fL (7.4-10.4); MONOCYTES 7.9 % (2-11); NEUTROPHILS 75.4 % (40-80); PLATELET COUNT 157 10x3/uL (130-400); RBC 4.45 10x6/uL (4.00-5.40); RDW 13.8 % (11.5-14.5)
[2020-08-14 08:24] LABS: ANION GAP 10.4 mmol/L (8-16); CALCIUM 8.8 mg/dL (8.5-10.1); CARBON DIOXIDE 30.1 mmol/L (21.0-32.0); CREATININE - SERUM 1.6 mg/dL (0.6-1.3); PHOSPHOROUS 3.1 mg/dL (2.5-4.9); POTASSIUM - SERUM 3.5 mmol/L (3.5-5.1); WBC 4.4 10x3/uL (4.8-10.8)
--- NOTE | 2020-08-14 09:35 | NUR ---
RECEIVED REPORT FROM ED. PT ESCORTED TO ROOM VIA BED. EDUCATED PT ON CL AND NEEDS, VERBALIZED UNDERSTANDING. BED LOW, RAILS X2. CL IN REACH, WILL CONTINUE TO MONITOR.
--- NOTE | 2020-08-14 16:55 | EC ---
PATIENT:CHRISTAL HANLEY DATE OF SERVICE: 08/13/20 SEX: F MEDICAL RECORD: [id number] DATE OF : 34 LOCATION:D.MS [facility] AGE OF PATIENT: 89 ADMISSION DATE: 08/13/20 REFERRING PHYSICIAN: INTERPRETING PHYSICIAN: CARLO ZAIDI MD ECHOCARDIOGRAM REPORT ECHO CHARGES 5 ECHO LIMITED Date: 08/13/20 CLINICAL DIAGNOSIS: TIA V/S CVA ECHOCARDIOGRAPHIC MEASUREMENTS (adult normal given) AC root (d.<3.7cm) 3.4 cm LV Septum d (<1.2 cm> 1.4 cm Valve Excursion cm LV Septum (systole) 2.2 cm Left Atria (s.<4.0cm> 3.8 cm LVPW d(<1.2cm) 1.0 cm RV (d.<2.3cm) 4.6 cm LVPW (sytole) 1.6 cm LV diastole(<5.6CM) 4.6 cm MV E-F(>70mm/sec) cm LV systole 2.6 cm LVOT Diameter 2.0 cm MV exc.(>10mm) cm Est.ejection fraction (50-75%) 50 % DOPPLER: LVIT cm/sec A cm/sec E cm/sec LA cm/sec RVSP 46 mmHg LVOT cm/sec AOP1/2T m/s Asc. Ao cm/sec RVOT cm/sec RA cm/sec PA cm/sec AV Gradient Peak mmHg AV Mean mmHg AV Area cm MV Gradient Peak mmHg MV Mean mmHg MV Area cm COMMENTS: [employer] Architect: Dynamite Cartridge Crimper: Monet Bradley TAPE# Pacs Pericardial Effusion N DATE OF SERVICE: Adequate 2D, color flow imaging, spectral Doppler, and M-Mode. Borderline LVH. LV internal dimensions are normal. Wall motion is normal. EF is greater than or equal to 55%. Aortic valve is tricuspid with good valve excursion. Left atrium is normal at 3.8 cm. Mitral valve shows no prolapse. Trivial MR. Right-sided chambers are grossly normal. Mild TR. TRANSINT:[id number] Voice Confirmation ID: [id number] DOCUMENT ID: [id number] ECHOCARDIOGRAM REPORT [id number] DAYANCHRISTAL VILLAGOMEZ CARLO ZAIDI MD at 1655 CC: [id number] DICTATION DATE: 08/14/2029 MASTIC MAN: 08/14/20 1235 ADM IN [facility] [address] [id number]
--- NOTE | 2020-08-14 20:00 | NUR ---
PT SITTING UP IN BED WITHOUT DISTRESS, AOX4. SON AT BEDSIDE. IV LEFT FA SL. PT ASSISTED ON AND OFF BEDPAN. HAVING DIARRHEA. SAMPLE SENT TO LAB. DENIES NEEDS AT THIS TIME. CL IN REACH, WILL CTM
[2020-08-15 04:00] VITALS: BP 147/79
[2020-08-15 06:56] LABS: ALBUMIN 3.2 g/dL (3.4-5.0); ANION GAP 12.4 mmol/L (8-16); BILIRUBIN - TOTAL 0.62 mg/dL (0.2-1.3); CALCIUM 8.9 mg/dL (8.5-10.1); CARBON DIOXIDE 26.1 mmol/L (21.0-32.0); CREATININE - SERUM 1.4 mg/dL (0.6-1.3); POTASSIUM - SERUM 3.5 mmol/L (3.5-5.1); PROTEIN - SERUM 7.6 g/dL (6.4-8.2)
--- NOTE | 2020-08-15 07:20 | NUR ---
PT IS RESTING IN BED WITH EYES CLOSED. RESPIRATIONS ARE EVEN AND UNLABORED. PT IS AROUSED WITH VERBAL STIMULATION. PT IS AAO X 4 UPON AROUSAL AND ANSWERS ALL QUESTIONS APPROPRIATELY AT THIS TIME. PT DENIES PRESENCE OF PAIN/N/V/DYSPNEA. PT DENIES PRESENCE OF NUMBNESS/TINGLING TO BUE AND BLE. PIV TO LEFT FA IS SL AND FLUSHES WITHOUT DIFFICULTY. FALL PRECAUTIONS IN PLACE. BED IS IN THE LOWEST POSITION. CALL LIGHT AND BEDSIDE TABLE ARE WITHIN REACH. SIDE RAILS X 2. PT DENIES FURTHER NEEDS. WILL CONT TO MONITOR.
[2020-08-15 07:35] LABS: BASOPHILS 0.4 % (0-2); EOSINOPHILS 2.9 % (0-7); HEMATOCRIT 39.4 % (36.0-48.0); HEMOGLOBIN 12.9 g/dL (12-16); IMMATURE GRANULOCYTES 0.2 % (0-5); LYMPHOCYTES 23.4 % (15-50); MCH 29.5 pg (26.0-34.0); MCHC 32.7 g/dL (31.0-37.0); MEAN PLATELET VOLUME 11.1 fL (7.4-10.4); MONOCYTES 8.3 % (2-11); NEUTROPHILS 64.8 % (40-80); PLATELET COUNT 162 10x3/uL (130-400); RBC 4.38 10x6/uL (4.00-5.40); RDW 13.8 % (11.5-14.5); WBC 4.5 10x3/uL (4.8-10.8)
[2020-08-15 08:07] VITALS: BP 148/74
[2020-08-15 10:24] VITALS: BP 144/75
[2020-08-15 12:04] VITALS: BP 134/81
--- NOTE | 2020-08-15 12:22 | MORECARE ---
CASE MANAGEMENT DISCHARGE SUMMARY PATIENT: CHRISTAL HANLEY UNIT: [id number] ADM DATE: 08/13/20 AGE: 89 : 32 SEX: F ROOM/BED: D.2231 AUTHOR: ROBERT KILLIAN PHYSICIAN: REFERRING PHYSICIAN: DENVER RAJPUT MD DATE OF SERVICE: 08/15/20 Discharge Plan Patient Name: CHRISTAL HANLEY Facility: [facility]:[place] : 1930 Planned Disposition: Anticipated Discharge Date: Discharge Date: Expected LOS: Initial Reviewer: [id number] Initial Review Date: 08/13/2020 Generated: 08/15/20 1:21 pm Comments DCP- Discharge Planning Updated by [id number]: Marianna Cueto on 08/15/20 11:[address] Patient Name: HCRISTAL HANLEY Admission Status: ER Accout number: [id number] Admission Date: 08-13-2020 : 1930 Admission Diagnosis:SHORTNESS OF BREATH Attending: DENVER BHAKTA Current LOS: 2 Anticipated DC Date: Planned Disposition: Primary Insurance: MEDICARE A & B Discharge Planning Comments: CM met with patient at bedside after explaining CM role and obtaining verbal consent. CM discussed availability / needs of home health, REHAB and medical equipment. STATES HAS A WALKER AT HOME AND DOES NOT NEED ANY OTHER MEDICAL EQUIPMENT. SHE IS NOT INTERESTED IN HH OR REHAB. I GAVE HER INFORMATION ON DIFFERENT [facility] AGENCIES THAT PROVIDE ADDITIONAL HELP AT HOME. SHE PLANS TO DC TO HOME WITH HER SON TODAY. CM TOFOLLOW AND ASSIST NEEDED. Director Of Maintenance: Marianna Cueto DCPIA - Discharge Planning Initial Assessment Updated by [id number]: Marianna Cueto on 08/15/20 12:18 pm * Is the patient Alert and Oriented? Yes * PCP MULLINEX * Preadmission Environment Home with Family * ADLs Independent * Other Equipment WALKER * List name and contact numbers for known caregivers / representatives who currently or will assist patient after discharge: DANA LEAL, * Community resources currently utilized None * Additional services required to return to the preadmission environment? No * Can the patient safely return to the preadmission environment? Yes * Has this patient been hospitalized within the prior 30 days at any hospital? No Patient Name: CHRISTAL HANLEY Page [id number] at 1222 All edits/amendments must be made on the electronic document DICTATION DATE: 08/15/201220 CARBIDE POWDER PROCESSOR: IDALMIS 08/15/201220 RPT#: [id number] DC DATE: STATUS: ADM IN [facility] [address] [place] [address] END OF REPORT
--- NOTE | 2020-08-15 12:48 | NUR ---
OT NOTE: PT DOING VERY WELL; VERY MINIMAL ASSIST FOR SUPINE TO SIT; WITH EXT TIME PROVIDED PT WAS ABLE TO SCOOT TO EOB WITHOUT ASSIST. ABLE TO CHUCHO GOWN WITH SET UP.. REQUIRED ASSIST WITH COMBING HAIR; SIT TO STAND WITH MIN ASSIST; AMB INTO HALLWAY WITH WALKER X APPROX 50 FT WITH CGA. TRANSFERRED TO CHAIR WITH MIN ASSIST. KIAN AUGUSTIN, OTR/L [phone]
--- NOTE | 2020-08-15 13:25 | NUR ---
PT SON CALLED TO NOTIFY OF PT DISCHARGE. NO ANSWER. UNABLE TO LEAVE VM. WILL CONT TO ATTEMPT TO CONTACT FAMILY.
--- NOTE | 2020-08-15 14:19 | NUR ---
SPOKE WITH PT SON MEL OVER TELEPHONE AND NOTIFIED OF DISCHARGE. PT SON REQUESTS PHONE NUMBER TO DR BERNSTEIN. PHONE NUMBER GIVEN. PT SON STATES THAT HE WILL NOT BE ABLE TO CHIEF OF SERVICE PT UNTIL THIS EVENING AND REQUESTS TO GO OVER DISCHARGE PAPERS UPON HIS ARRIVAL.
[2020-08-15 16:50] VITALS: BP 159/78
--- NOTE | 2020-08-15 17:30 | NUR ---
PT SON AT BEDSIDE. PT SON STATES "THIS IS MY MOM AND SHE DOESNT LOOK RIGHT. I AM NOT COMFORTABLE WITH TAKING HER HOME TONIGHT". LOPEZ ISSA APRN PAGED. PAGE RETURNED AND NOTIFIED JOSE OF SON CONCERNS. TELEPHONE ORDERS RECD ARE HOLD DISCHARGE. PLACE ORDER FOR PT AND OT, REHAB SCREEN AND IV FLAGYL 500MG Q 8 HOURS. IMMODIUM PO PRN FOR DIARRHEA. WILL PLACE ORDERS.
--- NOTE | 2020-08-15 19:30 | NUR ---
PT LYING IN BED SLEEPING WITHOUT DISTRESS. IV LEFT AC INFUSING FLAGYL AT THIS TIME. SIDE RAILS X2. BED ALARM ON. CL IN REACH, WILL CTM
[2020-08-15 20:00] VITALS: BP 139/69
--- NOTE | 2020-08-15 21:00 | NUR ---
PT SITTING UP IN BED, AOX4. TOOK HS MEDS WITHOUT DIFFICULTY. PT INCONTINENT OF URINE. CHANGED LINENS, PROVIDED [facility] CARE. DENIES OTHER NEEDS AT THIS TIME. CL IN REACH, WILL CTM
--- NOTE | 2020-08-15 22:37 | NUR ---
OT NOTE: PT COMPLETED UB HYGIENE TASKS WITH SETUP. PT COMPLETED POSITIONING IN BED WITH MIN A. PT IS UPSET AT BEING TOLD OF DISCHARGE. PT STATED SHE HAS DIARRHEA AND IS UPSET. PT STATED HER SON IS GOING OUT OF TOWN FOR [place] AND SHE FEELS UNABLE TO CARE FOR SELF. QUARLES NOTIFIED NURSING. NURSING STATED HAD SPOKEN TO PT SON. PT REQUESTED TO SPEAK TO NURSING WITH CONCERNS. NURSING STATED SHE WOULD ADDRESS PT CONCERNS. [phone] DIOMEDES LANDA COTA
--- NOTE | 2020-08-16 01:00 | NUR ---
PT INCONTINENT OF URINE. LINENS CHANGED, [facility] PROVIDED
[2020-08-16 04:00] VITALS: BP 129/63
[2020-08-16 06:40] LABS: BASOPHILS 0.3 % (0-2); EOSINOPHILS 2.8 % (0-7); HEMATOCRIT 38.3 % (36.0-48.0); HEMOGLOBIN 12.2 g/dL (12-16); IMMATURE GRANULOCYTES 0.5 % (0-5); LYMPHOCYTES 22.3 % (15-50); MCH 28.9 pg (26.0-34.0); MCHC 31.9 g/dL (31.0-37.0); MCV 90.8 fL (80.0-100.0); MONOCYTES 11.5 % (2-11); NEUTROPHILS 62.6 % (40-80); PLATELET COUNT 188 10x3/uL (130-400); RBC 4.22 10x6/uL (4.00-5.40); RDW 13.8 % (11.5-14.5)
[2020-08-16 07:06] LABS: ANION GAP 8.4 mmol/L (8-16); BILIRUBIN - TOTAL 0.64 mg/dL (0.2-1.3); CALCIUM 8.7 mg/dL (8.5-10.1); CARBON DIOXIDE 29.2 mmol/L (21.0-32.0); CREATININE - SERUM 1.6 mg/dL (0.6-1.3); POTASSIUM - SERUM 3.6 mmol/L (3.5-5.1); PROTEIN - SERUM 7.1 g/dL (6.4-8.2)
--- NOTE | 2020-08-16 07:15 | NUR ---
REC'D IN BED AWAKE AND ALERT. RESP EVEN AND UNLABORED WITH NO DISTRESS NOTED. CAN EXPRESS NEEDS AND WANTS. DENIES ANY PAIN OR DISCOMFORT . ASSESSMENT COMPLETED. C/L IN REACH AT BEDSIDE.
--- NOTE | 2020-08-16 09:06 | MORECARE ---
CASE MANAGEMENT DISCHARGE SUMMARY PATIENT: CHRISTAL HANLEY UNIT: [id number] ADM DATE: 08/13/20 AGE: 89 : 32 SEX: F ROOM/BED: D.2231 AUTHOR: ROBERT KILLIAN PHYSICIAN: REFERRING PHYSICIAN: DENVER RAJPUT MD DATE OF SERVICE: 08/16/20 Discharge Plan Patient Name: CHRISTAL HANLEY Facility: [facility]:[place] : 1930 Planned Disposition: Anticipated Discharge Date: Discharge Date: Expected LOS: Initial Reviewer: [id number] Initial Review Date: 08/13/2020 Generated: 08/16/20 10:05 am Comments DCP- Discharge Planning Updated by [email or web address]: Marianna Cueto on 08/15/20 11:[address] Patient Name: CHRISTAL HANLEY Admission Status: ER Accout number: [id number] Admission Date: 08-13-2020 : 1930 Admission Diagnosis:SHORTNESS OF BREATH Attending: DENVER BHAKTA Current LOS: 2 Anticipated DC Date: Planned Disposition: Primary Insurance: MEDICARE A & B Discharge Planning Comments: CM met with patient at bedside after explaining CM role and obtaining verbal consent. CM discussed availability / needs of home health, REHAB and medical equipment. STATES HAS A WALKER AT HOME AND DOES NOT NEED ANY OTHER MEDICAL EQUIPMENT. SHE IS NOT INTERESTED IN HH OR REHAB. I GAVE HER INFORMATION ON DIFFERENT [employer] AGENCIES THAT PROVIDE ADDITIONAL HELP AT HOME. SHE PLANS TO DC TO HOME WITH HER SON TODAY. CM TOFOLLOW AND ASSIST NEEDED. Supervisor Testing: Marianna Cueto DCPIA - Discharge Planning Initial Assessment Updated by [email or web address]: Marianna Cueto on 08/15/20 12:18 pm * Is the patient Alert and Oriented? Yes * PCP MULLINEX * Preadmission Environment Home with Family * ADLs Independent * Other Equipment WALKER * List name and contact numbers for known caregivers / representatives who currently or will assist patient after discharge: DANA LEAL, * Community resources currently utilized None * Additional services required to return to the preadmission environment? No * Can the patient safely return to the preadmission environment? Yes * Has this patient been hospitalized within the prior 30 days at any hospital? No Last DP export: 08/15/20 11:22 a Patient Name: CHRISTAL HANLEY Page [phone] at 0906 All edits/amendments must be made on the electronic document DICTATION DATE: 08/16/20904 COST RECOVERY TECHNICIAN: IDALMIS 08/16/20904 RPT#: [id number] DC DATE: STATUS: ADM IN [facility] [address] [place] [address] END OF REPORT
[2020-08-16 10:10] VITALS: BP 159/77
--- NOTE | 2020-08-16 10:11 | NUR ---
Rehab Note- Acute Inpatient Rehab prescreen order received. The patient was in our acute rehab unit in May and was able to discharge home at that time with her son. Per CM note, the patient was not interested in rehab or HH- I called and spoke with the patient's son, Mr Blackwood, and he is in agreeance and states that his mother also is with a stay at [facility] Acute Inpatient Rehab prior to being discharged home. Will accept the patient upon discharge from the acute hospital. Thank you for this referral! Jacy Pal RN Clinical Liaison, [facility] Rehab
[2020-08-16] MEDS ORDERED: ZITHROMAX250 MG PO (11:22)
--- NOTE | 2020-08-16 11:37 | MORECARE ---
CASE MANAGEMENT DISCHARGE SUMMARY PATIENT: CHRISTAL HANLEY UNIT: [id number] ADM DATE: 08/13/20 AGE: 89 : 32 SEX: F ROOM/BED: D.2231 AUTHOR: ROBERT KILLIAN PHYSICIAN: REFERRING PHYSICIAN: DENVER RAJPUT MD DATE OF SERVICE: 08/16/20 Discharge Plan Patient Name: CHRISTAL HANLEY Facility: [facility]:[place] : 1930 Planned Disposition: Anticipated Discharge Date: Discharge Date: Expected LOS: Initial Reviewer: [email or web address] Initial Review Date: 08/13/2020 Generated: 08/16/20 12:37 pm Comments DCP- Discharge Planning Updated by [email or web address]: Marianna Cueto on 08/16/20 10:[address] Patient Name: CHRISTAL HANLEY Admission Status: ER Accout number: [id number] Admission Date: 08-13-2020 : 1930 Admission Diagnosis:SHORTNESS OF BREATH Attending: DENVER BHAKTA Current LOS: 3 Anticipated DC Date: Planned Disposition: Primary Insurance: MEDICARE A & B Discharge Planning Comments: IMM EXPLAINED, COPY SIGNED AND ORIGINAL GIVEN TO PATIENT. PLANS TO DC TO ON LICENSE OF [facility] TODAY. CM TO FOLLOW AND ASSIST NEEDED. Guide Setter: Marianna Cueto DCP- Discharge Planning Updated by [email or web address]: Marianna Cueto on 08/15/20 11:[address] Patient Name: CHRISTAL HANLEY Admission Status: ER Accout number: [id number] Admission Date: 08-13-2020 : 1930 Admission Diagnosis:SHORTNESS OF BREATH Attending: DENVER BHAKTA Current LOS: 2 Anticipated DC Date: Planned Disposition: Primary Insurance: MEDICARE A & B Discharge Planning Comments: CM met with patient at bedside after explaining CM role and obtaining verbal consent. CM discussed availability / needs of home health, REHAB and medical equipment. STATES HAS A WALKER AT HOME AND DOES NOT NEED ANY OTHER MEDICAL EQUIPMENT. SHE IS NOT INTERESTED IN HH OR REHAB. I GAVE HER INFORMATION ON DIFFERENT [facility] AGENCIES THAT PROVIDE ADDITIONAL HELP AT HOME. SHE PLANS TO DC TO HOME WITH HER SON TODAY. CM TOFOLLOW AND ASSIST NEEDED. Guide Setter: Marianna Cueto DCPIA - Discharge Planning Initial Assessment Updated by [id number]: Marianna Cueto on 08/15/20 12:18 pm * Is the patient Alert and Oriented? Yes * PCP MULLINEX * Preadmission Environment Home with Family * ADLs Independent * Other Equipment WALKER * List name and contact numbers for known caregivers / representatives who currently or will assist patient after discharge: DANA LEAL, * Community resources currently utilized None * Additional services required to return to the preadmission environment? No * Can the patient safely return to the preadmission environment? Yes * Has this patient been hospitalized within the prior 30 days at any hospital? No Coverage Notice Reviewer: [id number] - Marianna Cueto Notice Issued Date-Time: 08/16/2020 11:28 Notice Type: IM Discharge Notice Notice Delivered To: Patient Relationship to Patient: Insole Lip Turner Name: Delivery Method: HAND - Hand Delivered Wendy Days: Prior Verbal Notification: Recipient Understood Notice: Yes Recipient Signature: Yes Med Rec Note Co-signed by Attending: Coverage Notice Comment: Last DP export: 08/16/20 8:06 a Patient Name: CHRISTAL HANLEY Page [phone] at 1137 All edits/amendments must be made on the electronic document DICTATION DATE: 08/16/201136 FBI SPECIAL AGENT: IDALMIS 08/16/201136 RPT#: [id number] DC DATE: STATUS: ADM IN [facility] [address] [place] [address] END OF REPORT
[2020-08-16 14:18] VITALS: BP 139/75
--- NOTE | 2020-08-16 16:09 | NUR ---
DC DOWN TO INPATIENT REHAB AT THIS TIME. NO DISTRESS NOTED. ASSISTED TO FOR TRANSFER. STABLE CONDITION UPON DEPARTURE. IV DC.
--- NOTE | 2020-08-16 16:12 | NUR ---
I have reviewed this patient and I concur with the Shift Assessment completed by the Licensed Practical Nurse today this shift.
--- NOTE | 2020-08-16 16:25 | MORECARE ---
CASE MANAGEMENT DISCHARGE SUMMARY PATIENT: CHRISTAL HANLEY UNIT: [id number] ADM DATE: 08/13/20 AGE: 89 : 32 SEX: F ROOM/BED: D.2231 AUTHOR: ROBERT KILLIAN PHYSICIAN: REFERRING PHYSICIAN: DENVER RAJPUT MD DATE OF SERVICE: 08/16/20 Discharge Plan Patient Name: CHRISTAL HANLEY Facility: [facility]:[place] : 1930 Planned Disposition: Anticipated Discharge Date: Discharge Date: Expected LOS: Initial Reviewer: [email or web address] Initial Review Date: 08/13/2020 Generated: 08/16/20 5:24 pm Comments DCP- Discharge Planning Updated by [id number]: Marianna Cueto on 08/16/20 10:[address] Patient Name: CHRISTAL HANLEY Admission Status: ER Accout number: [id number] Admission Date: 08-13-2020 : 1930 Admission Diagnosis:SHORTNESS OF BREATH Attending: DENVER BHAKTA Current LOS: 3 Anticipated DC Date: Planned Disposition: Primary Insurance: MEDICARE A & B Discharge Planning Comments: IMM EXPLAINED, COPY SIGNED AND ORIGINAL GIVEN TO PATIENT. PLANS TO DC TO [facility] TODAY. CM TO FOLLOW AND ASSIST NEEDED. Case Mgr: Marianna Cueto DCP- Discharge Planning Updated by [email or web address]: Marianna Cueto on 08/15/20 11:[address] Patient Name: CHRISTAL HANLEY Admission Status: ER Accout number: [id number] Admission Date: 08-13-2020 : 1930 Admission Diagnosis:SHORTNESS OF BREATH Attending: DENVER BHAKTA Current LOS: 2 Anticipated DC Date: Planned Disposition: Primary Insurance: MEDICARE A & B Discharge Planning Comments: CM met with patient at bedside after explaining CM role and obtaining verbal consent. CM discussed availability / needs of home health, REHAB and medical equipment. STATES HAS A WALKER AT HOME AND DOES NOT NEED ANY OTHER MEDICAL EQUIPMENT. SHE IS NOT INTERESTED IN HH OR REHAB. I GAVE HER INFORMATION ON DIFFERENT GROUP HOME AGENCIES THAT PROVIDE ADDITIONAL HELP AT HOME. SHE PLANS TO DC TO HOME WITH HER SON TODAY. CM TOFOLLOW AND ASSIST NEEDED. Case Mgr: Mariannajann Cueto DCPIA - Discharge Planning Initial Assessment Updated by [id number]: Marianna Cueto on 08/15/20 12:18 pm * Is the patient Alert and Oriented? Yes * PCP MULLINEX * Preadmission Environment Home with Family * ADLs Independent * Other Equipment WALKER * List name and contact numbers for known caregivers / representatives who currently or will assist patient after discharge: DANA LEAL, * Community resources currently utilized None * Additional services required to return to the preadmission environment? No * Can the patient safely return to the preadmission environment? Yes * Has this patient been hospitalized within the prior 30 days at any hospital? No Coverage Notice Reviewer: [id number] - Marianna Cueto Notice Issued Date-Time: 08/16/2020 11:28 Notice Type: IM Discharge Notice Notice Delivered To: Patient Relationship to Patient: Glass Cutter Name: Delivery Method: HAND - Hand Delivered Wendy Days: Prior Verbal Notification: Recipient Understood Notice: Yes Recipient Signature: Yes Med Rec Note Co-signed by Attending: Coverage Notice Comment: Last DP export: 08/16/20 10:37 a Patient Name: CHRISTAL HANLEY Page [phone] at 1625 All edits/amendments must be made on the electronic document DICTATION DATE: 08/16/201624 INDUSTRIAL SEWER: IDALMIS 08/16/201624 RPT#: [id number] DC DATE: STATUS: ADM IN [facility] [address] [place] [address] END OF REPORT
--- NOTE | 2020-08-16 17:17 | NUR ---
OT NOTE: PT COMPLETED SUPINE TO SIT WITH MIN A. PT COMPLETED SIT TO STAND WITH CGA/MIN A. PT COMPLETED ADL MOB WITH RW REQUIRED CGA. PT REQUIRED MAX A LB HYGIENE TASKS. [phone] THANK YOU,WILLAM SMALLS
--- NOTE | 2020-08-19 09:25 | MORECARE ---
CASE MANAGEMENT DISCHARGE SUMMARY PATIENT: CHRISTAL HANLEY UNIT: [id number] ADM DATE: 08/13/20 AGE: 89 : 32 SEX: F ROOM/BED: D.2231 AUTHOR: ROBERT KILLIAN PHYSICIAN: REFERRING PHYSICIAN: DENVER RAJPUT MD DATE OF SERVICE: 08/19/20 Discharge Plan Patient Name: CHRISTAL HANLEY Facility: [facility]:[place] : 1930 Planned Disposition: Anticipated Discharge Date: Discharge Date: 08/16/2020 Expected LOS: Initial Reviewer: [id number] Initial Review Date: 08/13/2020 Generated: 08/19/20 10:24 am Comments DCP- Discharge Planning Updated by [id number]: Marianna Cueto on 08/16/20 10:[address] Patient Name: CHRISTAL HANLEY Admission Status: ER Accout number: [id number] Admission Date: 08-13-2020 : 1930 Admission Diagnosis:SHORTNESS OF BREATH Attending: DENVER BHAKTA Current LOS: 3 Anticipated DC Date: Planned Disposition: Primary Insurance: MEDICARE A & B Discharge Planning Comments: IMM EXPLAINED, COPY SIGNED AND ORIGINAL GIVEN TO PATIENT. PLANS TO DC TO [facility] TODAY. CM TO FOLLOW AND ASSIST NEEDED. Director Medicare Sales: Marianna Cueto DCP- Discharge Planning Updated by [email or web address]: Marianna Cueto on 08/15/20 11:[address] Patient Name: CHRISTAL HANLEY Admission Status: ER Accout number: [id number] Admission Date: 08-13-2020 : 1930 Admission Diagnosis:SHORTNESS OF BREATH Attending: DENVER BHAKTA Current LOS: 2 Anticipated DC Date: Planned Disposition: Primary Insurance: MEDICARE A & B Discharge Planning Comments: CM met with patient at bedside after explaining CM role and obtaining verbal consent. CM discussed availability / needs of home health, REHAB and medical equipment. STATES HAS A WALKER AT HOME AND DOES NOT NEED ANY OTHER MEDICAL EQUIPMENT. SHE IS NOT INTERESTED IN HH OR REHAB. I GAVE HER INFORMATION ON DIFFERENT [employer]FWAY AGENCIES THAT PROVIDE ADDITIONAL HELP AT HOME. SHE PLANS TO DC TO HOME WITH HER SON TODAY. CM TOFOLLOW AND ASSIST NEEDED. Director Medicare Sales: Marianna Cueto DCPIA - Discharge Planning Initial Assessment Updated by [email or web address]: Marianna Cueto on 08/15/20 12:18 pm * Is the patient Alert and Oriented? Yes * PCP MULLINEX * Preadmission Environment Home with Family * ADLs Independent * Other Equipment WALKER * List name and contact numbers for known caregivers / representatives who currently or will assist patient after discharge: DANA LEAL, * Community resources currently utilized None * Additional services required to return to the preadmission environment? No * Can the patient safely return to the preadmission environment? Yes * Has this patient been hospitalized within the prior 30 days at any hospital? No Coverage Notice Reviewer: [id number] - Marianna Cueto Notice Issued Date-Time: 08/16/2020 11:28 Notice Type: IM Discharge Notice Notice Delivered To: Patient Relationship to Patient: Precipitator Supervisor Name: Delivery Method: HAND - Hand Delivered Wendy Days: Prior Verbal Notification: Recipient Understood Notice: Yes Recipient Signature: Yes Med Rec Note Co-signed by Attending: Coverage Notice Comment: Last DP export: 08/16/20 3:25 p Patient Name: CHRISTAL HANLEY Page [id number] at 0925 All edits/amendments must be made on the electronic document DICTATION DATE: 08/19/20923 PROMOTION WRITER: IDALMIS 08/19/20923 RPT#: [id number] DC DATE:08/16/20 STATUS: DIS IN [facility] [address] [place] [address] END OF REPORT
[2020-08-20 11:11] LABS: OVA + PARASITE EXAM Final report (())
== END 2020-08-16 16:49 | DRG 69 ==
LOC: D.ER 20:50 → D.EDHOLD 08-13 00:55 → D.MS 08-13 00:55 → OBSVTIME 08-13 00:55 → D.EDHOLD 08-13 15:32 → D.MS 08-13 15:32
PROVIDERS: Family Medicine; ADMIT Family Medicine Adult Medicine; ATTEND Family Medicine Adult Medicine
DX: G45.9 Transient cerebral ischemic attack, unspecified (principal); I50.33 Acute on chronic diastolic (congestive) heart failure; I13.0 Hypertensive heart and chronic kidney disease with heart failure and stage 1 through stage 4 chronic kidney disease, or unspecified chronic kidney disease; N39.0 Urinary tract infection, site not specified; R06.02 Shortness of breath; N18.9 Chronic kidney disease, unspecified; D63.1 Anemia in chronic kidney disease; G40.909 Epilepsy, unspecified, not intractable, without status epilepticus; Z86.711 Personal history of pulmonary embolism; Z85.42 Personal history of malignant neoplasm of other parts of uterus

== ENCOUNTER 2020-08-16 16:38 | Inpatient (IN) | payer MEDICARE, BC ==
[~2020-08-16] VITALS: Ht 170.2 cm; Wt 77.1 kg
[~2020-08-16 16:38] MED LIST changes: +ELIQUIS5 MG PO; +ZITHROMAX250 MG PO
[2020-08-16 17:10] VITALS: BP 179/96; BMI 26.7
--- NOTE | 2020-08-16 18:31 | NUR ---
PT RESTING IN BED WITH EYES OPEN CALL LIGHT IN REACH WILL MONITER
[2020-08-16 20:22] VITALS: BP 175/84
--- NOTE | 2020-08-16 20:45 | NUR ---
PATIENT RECEIVED SITTING UP IN BED WATCHING TV. ASSESSMENT & VITAL SIGNS DONE. ALARM ON. CALL LIGHT & SIDE TABLE WITHIN REACH. WILL CONTINUE TO MONITOR.
--- NOTE | 2020-08-16 21:30 | NUR ---
PAPERS SIGNED BY PATIENT. PATIENT WANTS DR. EMANUEL TO SIGN DNR PAPER. PATIENT GRAND SON VISITING. BED LOW. CALL LIGHT & BEDSIDE TABLE WITHIN REACH. WILL CONTINUE TO MONITOR.
--- NOTE | 2020-08-17 00:59 | NUR ---
PATIENT USED CALL LIGHT FOR ASSIST. WET PADS REMOVED. PERIAREA & BUTTOCKS CLEANED. NEW PADS UNDER BUTTOCKS. BED LOW. ALARM ON. CALL LIGHT WITHIN REACH. WILL CONTINUE TO MONITOR.
--- NOTE | 2020-08-17 01:31 | NUR ---
I have reviewed this patient and I concur with the Shift Assessment completed by the Licensed Practical Nurse today this shift.
--- NOTE | 2020-08-17 01:52 | NUR ---
PATIENT EYES CLOSED. RESPIRATIONS 18 & EVEN. BED LOW. CALL LIGHT WITHIN REACH. WILL CONTINUE TO MONITOR.
[2020-08-17 06:51] LABS: BASOPHILS 0.6 % (0-2); EOSINOPHILS 3.6 % (0-7); HEMATOCRIT 38.1 % (36.0-48.0); HEMOGLOBIN 12.1 g/dL (12-16); IMMATURE GRANULOCYTES 0.6 % (0-5); LYMPHOCYTES 24.6 % (15-50); MCH 28.5 pg (26.0-34.0); MCHC 31.8 g/dL (31.0-37.0); MCV 89.6 fL (80.0-100.0); MEAN PLATELET VOLUME 10.7 fL (7.4-10.4); MONOCYTES 9.4 % (2-11); NEUTROPHILS 61.2 % (40-80); PLATELET COUNT 176 10x3/uL (130-400); RBC 4.25 10x6/uL (4.00-5.40); RDW 13.6 % (11.5-14.5); WBC 3.1 10x3/uL (4.8-10.8)
[2020-08-17 07:19] LABS: ANION GAP 9.6 mmol/L (8-16); CALCIUM 8.9 mg/dL (8.5-10.1); CARBON DIOXIDE 28.1 mmol/L (21.0-32.0); CREATININE - SERUM 1.4 mg/dL (0.6-1.3); POTASSIUM - SERUM 3.7 mmol/L (3.5-5.1)
--- NOTE | 2020-08-17 08:22 | NUR ---
SHE IS AWAKE, TALKING. TOOK HER MEDICATIONS WITHOUT ANY PROBLEMS. USES A WALKER TO GET TO THE BATHROOM AND BACK. THE CALL LIGHT IS WITHIN REACH.
[2020-08-17 09:17] VITALS: Ht 170.2 cm; Wt 77.1 kg
[2020-08-17 09:38] VITALS: BP 169/84
[2020-08-17 20:00] VITALS: BP 163/88
--- NOTE | 2020-08-17 20:00 | NUR ---
PATIENT RECEIVED SITTING UP IN BED. ASSESSMENT & VITAL SIGNS DONE. NO C/O PAIN OR DISTRESS. BED LOW. ALARM ON. CALL LIGHT WITHIN REACH. WILL CONTINUE TO MONITOR.
--- NOTE | 2020-08-18 01:01 | NUR ---
PATIENT DROPS PLACED IN EYES. PATIENT TOLERATED IT WELL. PATIENT DID NOT NEED TO GO TO BATHROOM AT THIS TIME. BED LOW. CALL LIGHT WITHIN REACH. WILL CONTINUE TO MONITOR.
--- NOTE | 2020-08-18 04:11 | NUR ---
I have reviewed this patient and I concur with the Shift Assessment completed by the Licensed Practical Nurse today this shift.
--- NOTE | 2020-08-18 06:03 | NUR ---
PATIENT TOILETED. HAD INCONTINENCE IN BED & BRIEF. STANDBY ASSIST INTO & OUT OF BED. ON & OFF COMMODE. CONTINUES ON ANTIBIOTIC EYE DROPS, NO ADVERSE REACTION NOTED. BED LOW. ALARM ON. CALL LIGHT WITHIN REACH. WILL CONTINUE TO MONITOR.
--- NOTE | 2020-08-18 08:54 | NUR ---
SHE IS AWAKE, TALKING, TOOK MEDICATIONS WITHOUT ANY PROBLEMS. THE CALL LIGHT IS WITHIN REACH.
[2020-08-18 09:17] VITALS: BP 158/75
[2020-08-18 20:05] VITALS: BP 154/63
--- NOTE | 2020-08-18 20:11 | NUR ---
PATIENT RECEIVED SITTING UP IN BED WATCHING TV. VITAL SIGNS & ASSESSMENT DONE. ALARM ON. CALL LIGHT WITHIN REACH. WILL CONTINUE TO MONITOR.
--- NOTE | 2020-08-19 03:20 | NUR ---
I have reviewed this patient and I concur with the Shift Assessment completed by the Licensed Practical Nurse today this shift.
--- NOTE | 2020-08-19 05:37 | NUR ---
PATIENT USED CALL LIGHT FOR ASSIST. STANDBY ASSIST OUT & IN BED USING ROLLING WALKER. PATIENT TOILETED. VOID & SMALL BM. PATIENT WASHED HANDS & FACE. BRUSHED HER TEETH. STANDBY ASSIST BACK TO BED. PATIENT FEET ELEVATED ON PILLOW. COVERS ON. ALARM ON. CALL LIGHT & BEDSIDE TABLE WITHIN REACH. WILL CONTINUE TO MONITOR.
[2020-08-19 07:11] LABS: BASOPHILS 1.3 % (0-2); EOSINOPHILS 4.6 % (0-7); HEMATOCRIT 35.6 % (36.0-48.0); HEMOGLOBIN 11.5 g/dL (12-16); LYMPHOCYTES 40.3 % (15-50); MCHC 32.3 g/dL (31.0-37.0); MCV 89.9 fL (80.0-100.0); MEAN PLATELET VOLUME 10.6 fL (7.4-10.4); MONOCYTES 12.1 % (2-11); NEUTROPHILS 39.7 % (40-80); PLATELET COUNT 193 10x3/uL (130-400); RBC 3.96 10x6/uL (4.00-5.40); RDW 13.3 % (11.5-14.5); WBC 3.1 10x3/uL (4.8-10.8)
[2020-08-19 07:22] LABS: ANION GAP 8.2 mmol/L (8-16); CALCIUM 8.6 mg/dL (8.5-10.1); CARBON DIOXIDE 29.2 mmol/L (21.0-32.0); CREATININE - SERUM 1.3 mg/dL (0.6-1.3); POTASSIUM - SERUM 3.4 mmol/L (3.5-5.1)
[2020-08-19 07:40] VITALS: BP 175/90
--- NOTE | 2020-08-19 10:05 | NUR ---
PATIENTS SON INTO VISIT. PATIENT REFUSED TO CONTINUE TO WORK WITH OCCUPATIONAL THERAPIST DUE TO SON COMING INTO VISIT. VISITING RULES GONE OVER WITH SON AND PATIENT.
--- NOTE | 2020-08-19 16:24 | NUR ---
SPEECH THERAPIST IN PATIENTS ROOM WORKING WITH PATIENT
--- NOTE | 2020-08-19 16:30 | NUR ---
PATIENT ADMITTED TO REHAB FROM ACUTE FLOOR. HER PCP IS DR. CISNEROS. DME AT HOME IS A ROLLING WALKER. DISCHARGE PLANS ARE FOR HER TO RETURN TO HER HOME WITH HER SON. WILL CONTINUE TO FOLLOW WITH PATIENT.
--- NOTE | 2020-08-19 19:10 | NUR ---
PT LYING IN BED WATCHING TV. CALL LIGHT IN REACH. DENIES NEEDS AT THIS TIME. A/O X4. RESP EVEN AND UNLABORED. WCTM
[2020-08-19 19:29] VITALS: BP 168/78
--- NOTE | 2020-08-20 08:00 | NUR ---
PT RESTING IN BED WITH EYES OPEN CALL LIGHT IN REACH WILL MONITER
[2020-08-20 08:36] VITALS: BP 158/86
--- NOTE | 2020-08-20 13:42 | NUR ---
Nutrition Follow-up: Diet: Cardiac PO intake: ~61% average x last 9 meals. She states that her appetite has been pretty good previously but that she has diarrhea today which is causing her appetite to be poor. States that she is scared to eat. She has several beverages on her bedside table and states that she is making sure to stay hydrated. States that the nurse gave her some immodium but that it hasn't started working yet. States that Ensure also gives her diarrhea. She requested a clear liquid tray for dinner tonight. Last BM: 08/20/20 (multiple per patient). Wt: 170# (08/17/20) Meds noted: probiotics, k-dur, zithromax, keppra Labs noted: K 3.4(L), GFR 41(L) Recommend continue Regular diet order. Will order Clear Liquid diet for dinner tonight only. Hopefully diarrhea will clear up soon with meds. May consider adding Ensure Clear if patient likes it when she gets it tonight. RD following.
--- NOTE | 2020-08-20 17:36 | NUR ---
PT RESTING IN BED WITH EYES OPEN WATCHING TV CALL LIGHT IN REACH WILL MONITER
--- NOTE | 2020-08-20 19:10 | NUR ---
PT LYING IN BED WATCHING TV. CL IN REACH. DENIES NEEDS AT THIS TIME. BED IN LOW SIDE RAILS X2. A/O X4. RESP EVEN AND UNLABORED. BOWEL ACTIVE X4. LUNGS CLEAR. WILL CONTINUE TO MONITOR.
[2020-08-20 20:45] VITALS: BP 171/85
--- NOTE | 2020-08-20 21:30 | NUR ---
ASSISTED PT TO AND FROM BATHROOM USING WALKER. AFTER PATIENT PREFORMED [facility] PATIENT SAT ON TOILET AND HANDED THIS NURSE HER BRIEF AND TOLD THIS NURSE TO PUT BRIEF ON HER. THIS NURSE ASKED PT IF SHE COULD NOT HELP AND PT STATED "NO THAT IS WHAT YOU ARE FOR. IM NOT FALLING OFF THIS TOILET" THIS NURSE EDUCATED PT THAT SHE WOULD NOT FALL OFF TOILET BUT SHE NEEDED TO VIVEK WITH CARE AND SHE FIRMLY STATED "NO I CANT" THIS NURSE ASKED PT WHAT SHE WAS GOING TO DO AT HOME. AND SHE STATED " I HAVE PEOPLE TO CARE FOR ME AT HOME" EDUCATED PT THAT WE ARE HERE TO HELP AND GET HER STRENGTH BACK SO SHE CAN DO FOR HERSELF. PT DID NOT RESPOND. PT BACK IN BED. CL IN REACH.
--- NOTE | 2020-08-21 01:24 | NUR ---
I have reviewed this patient and I concur with the Shift Assessment completed by the Licensed Practical Nurse today this shift.
[2020-08-21 07:23] VITALS: BP 181/94
[2020-08-21 07:26] LABS: BASOPHILS 0.5 % (0-2); HEMATOCRIT 40.1 % (36.0-48.0); HEMOGLOBIN 12.6 g/dL (12-16); IMMATURE GRANULOCYTES 2.7 % (0-5); LYMPHOCYTES 35.7 % (15-50); MCH 28.2 pg (26.0-34.0); MCHC 31.4 g/dL (31.0-37.0); MCV 89.7 fL (80.0-100.0); MEAN PLATELET VOLUME 10.5 fL (7.4-10.4); MONOCYTES 6.7 % (2-11); NEUTROPHILS 50.4 % (40-80); RBC 4.47 10x6/uL (4.00-5.40); RDW 13.5 % (11.5-14.5); WBC 3.8 10x3/uL (4.8-10.8)
[2020-08-21 07:41] LABS: ANION GAP 10.9 mmol/L (8-16); CALCIUM 9.1 mg/dL (8.5-10.1); CARBON DIOXIDE 28.7 mmol/L (21.0-32.0); CREATININE - SERUM 1.3 mg/dL (0.6-1.3); POTASSIUM - SERUM 3.6 mmol/L (3.5-5.1)
[2020-08-21 07:42] LABS: PLATELET COUNT 235 10x3/uL (130-400)
--- NOTE | 2020-08-21 11:27 | NUR ---
PT IN THERAPY GYM TOLERATING WELL WILL MONITER
--- NOTE | 2020-08-21 12:00 | NUR ---
I have reviewed this patient and I concur with the Shift Assessment completed by the Licensed Practical Nurse today this shift.
--- NOTE | 2020-08-21 12:50 | NUR ---
CARE TEAM MEETING: PATIENT IS PROGRESSING IN THERAPY HER TENATIVE DC DATE IS 09/03/20. WILL CONTINUE TO FOLLOW WITH PATIENT.HER PLANS ARE TO DC HOME WITH HER SON.
--- NOTE | 2020-08-21 18:52 | NUR ---
PT RESTING IN BED WITH EYES OPEN CALL LIGHT IN REACH WILL MONITER
--- NOTE | 2020-08-21 19:56 | NUR ---
PT IN BED WATCHING TV, TOILETED, NO OTHER NEEDS NOTED, RESPIRATIONS EVEN/UNLABORED, SAFETY PRECAUTIONS IN PLACE, FLUIDS/CALL LIGHT WITHIN REACH
[2020-08-21 22:50] VITALS: BP 172/89
[2020-08-22 07:44] VITALS: BP 167/85
--- NOTE | 2020-08-22 09:09 | NUR ---
SHE IS USING THE WALKER TO GO THE BATHROOM AND BACK. SHE TOOK HER MEDICAITONS WITHOUT ANY PROBLEMS. I PUT NYSTATIN SUNSHINE UNDER HER BREAST, BUT IT IS NOT ENOUGH RED. THE CALL LIGHT IS WITHIN REACH.
[2020-08-22 19:00] VITALS: BP 156/80
--- NOTE | 2020-08-22 19:00 | NUR ---
PT IN BED,A&O,NO IMMEDIATE NEEDS NOTED,RESPIRATIONS EVEN/UNLABORED,SAFETY PRECAUTIONS IN PLACE,FLUIDS/CALL LIGHT WITHIN REACH
--- NOTE | 2020-08-23 04:18 | NUR ---
PT ASLEEPAROUSES EASILY TO VOICE ,NO IMMEDIATE NEEDS NOTED,RESPIRATIONS EVEN/UNLABORED,SAFETY PRECAUTIONS IN PLACE,FLUIDS/CALL LIGHT WITHIN REACH
[2020-08-23 06:05] LABS: BASOPHILS 0.7 % (0-2); EOSINOPHILS 3.7 % (0-7); HEMATOCRIT 35.2 % (36.0-48.0); HEMOGLOBIN 11.1 g/dL (12-16); IMMATURE GRANULOCYTES 1.2 % (0-5); LYMPHOCYTES 34.9 % (15-50); MCH 28.3 pg (26.0-34.0); MCHC 31.5 g/dL (31.0-37.0); MCV 89.8 fL (80.0-100.0); MEAN PLATELET VOLUME 10.8 fL (7.4-10.4); MONOCYTES 5.7 % (2-11); NEUTROPHILS 53.8 % (40-80); PLATELET COUNT 207 10x3/uL (130-400); RBC 3.92 10x6/uL (4.00-5.40); RDW 13.8 % (11.5-14.5)
[2020-08-23 06:19] LABS: ANION GAP 7.9 mmol/L (8-16); CARBON DIOXIDE 30.2 mmol/L (21.0-32.0); CREATININE - SERUM 1.4 mg/dL (0.6-1.3); POTASSIUM - SERUM 4.1 mmol/L (3.5-5.1)
[2020-08-23 07:37] VITALS: BP 174/90
--- NOTE | 2020-08-23 08:26 | NUR ---
SHE IS ALERT, TOOK HER MEDICATIONS WITHOUT ANY PROBLEMS. SHE IS USING THE WALKER TO GO TO THE BATHROOM. SHE STATES "I AM STRONGER THAN I WAS". THE CALL LIGHT IS WITHIN REACH.
--- NOTE | 2020-08-23 17:03 | RHP ---
PATIENT: CHRISTAL HANLEY MEDICAL RECORD: [id number] ACCOUNT: [id number] LOCATION:[id number] : 34 ADMISSION DATE: 08/16/20 REHABILITATION HISTORY AND PHYSICAL EXAMINATION POST ADMISSION PHYSICIAN EXAMINATION ADMITTING DIAGNOSIS: Late effects of cerebrovascular accident. HISTORY OF PRESENT ILLNESS: The patient is an 89-year-old female patient who has got oral dysphagia, dysarthric speech and worsening to right-sided hemiparesis and left-sided weakness. She was admitted to the ER on 08/13/2020 with reported shortness of breath with exertion, even when talking, associated with slurred speech and report a more recent right-sided weakness from her prior stroke. The patient is unsure when her right-sided weakness occurred from the earlier stroke. Staff reports that the right-sided weakness seemed to be improved compared to the day before. She cannot recall any right sensory deficit. She has got a known history of problems with a prior right frontal stroke, seizure disorder, remote history of Guillain-Fairfax and tremor. She was admitted on Eliquis [address] of her head demonstrated the right frontal stroke and small vessel ischemia and atrophy. Followup MRI confirmed these findings, but showed no evidence of anything acute. The patient had an echo and carotid Dopplers, which were both basically normal. She is alert and verbal. She has no dysarthria. She is having some problems with strength. She was noted to have right upper extremity weakness, right lower extremity weakness. She has got some sensory deficits and she is having some problems with coordination. She will definitely need inpatient rehab to get back to her prior level of functioning. 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 PAST MEDICAL HISTORY: Significant for stroke, CVA, CHF, uterine cancer. PAST SURGICAL HISTORY: Includes hysterectomy and gallbladder surgery. ALLERGIES: CODEINE AND ASPIRIN. CURRENT MEDICATIONS: Include Floranex she is on 1 cap daily, she is on spironolactone 25 mg daily, Pepcid 40 mg daily, isosorbide 5 mg daily, Zithromax 500 mg daily, she is on Keppra 750 b.i.d., Colace 100 mg b.i.d., Eliquis 5 mg b.i.d., Cipro ophthalmic 2 drops every 4 hours, MiraLax 17 grams in 8 ounces of water daily, she is on Tylenol 500 mg every 6 hours. HABITS: No alcohol or tobacco use. FAMILY HISTORY: Noncontributory. SOCIAL HISTORY: The patient hopes to return back home and get back to her prior level of functioning. REVIEW OF SYSTEMS: GENERAL: Does complain of weakness, mainly on one side. HEENT: Denies cold, cough, or congestion. HISTORY AND PHYSICAL [id number] CHRISTAL HANLEY CARDIOVASCULAR: Denies any chest pain. PHYSICAL EXAMINATION: VITAL SIGNS: Stable, afebrile. GENERAL: A somewhat obese female, in no distress upon exam. HEENT: Normocephalic and atraumatic. Mucosa moist. NECK: Supple. No lymphadenopathy. LUNGS: Clear in upper [place]. No wheezing or rales. HEART: Regular rate and rhythm. No murmurs, rubs or gallops. ABDOMEN: Soft, benign and nondistended. Positive bowel sounds times 4. EXTREMITIES: Does have noted trace edema. NEUROLOGIC: She does have marked weakness, especially on her right side. LABORATORY DATA: Admit white count is 3.1, H&H 12 and 38 and platelet count is noted to be 176. Her sodium is 142, potassium 3.7, BUN and creatinine of 19 and 1.4 and blood sugar is noted to be 104. ASSESSMENT: This is an 89-year-old female patient admitted to rehab with a working diagnosis of late effects secondary to previous cerebrovascular accident. The patient has potential to make improvement. We instituted the following multidisciplinary therapies including, but not limited to physical, occupational, respiratory, speech, nutritional services, prosthetics and orthotics. Given her complex medical condition and risks for more complications, rehabilitation services cannot be provided at a low level of care such as [facility] facility. PLAN: 1. Admit to [facility] for inpatient therapy to include the following disciplines; A. Physical therapy to improve gait, all transfer skills and bed mobility to a modified independent level. B. Occupational therapy to improve activities of daily living. C. Case management to help with discharge planning and placement options. D. Nutrition to assist with nutritional needs. E. Rehabilitation nursing to assist in monitoring the patient's underlying medical conditions and to assist with any type of bowel or bladder management. 2. The patient's current medication and medical care will be continued. 3. Placed on standard fall precautions. 4. The patient's estimated length of stay is approximately 7-10 days. 5. We will discuss the patient's care team staff meeting this week. Continue on Eliquis for stroke prophylaxis and I will see again in the a.m. on Wednesday. TRANSINT:[id number] Voice Confirmation ID: [id number] DOCUMENT ID: [id number] FRANNY notes whether there has been none or any medical/functional change since admission: - No change since prescreen. FRANNY attests patient continues to be appropriate for IRF: - Continues to be appropriate. HISTORY AND PHYSICAL [id number] CHRISTAL HANLEY JOHN SCOTT MD at 1703 CC: [id number] DICTATION DATE: 08/17/20 1412 SALES EXPERT: 08/17/20 1614 ADM IN [facility] [address] [place] [address]
--- NOTE | 2020-08-23 20:00 | NUR ---
PATIENT RECEIVED SITTING UP IN BED WATCHING TV. ASSESSMENT & VITAL SIGNS DONE. DRY BRIEF. BED LOW. CALL LIGHT WITHIN REACH. ALARM ON. WILL CONTINUE TO MONITOR.
--- NOTE | 2020-08-23 21:10 | NUR ---
PATIENT USED CALL LIGHT FOR ASSIST. PATIENT ASSIST OUT OF & INTO BED. PATIENT MINIMAL ASSIST USING ROLLING WALKER, SLOW STEADY GAIT INTO BATHROOM. INDEPENDENT WITH PERIAREA CLEANING. VOID ONLY. PATIENT WASHED HANDS & RETURNED TO LOW BED. PATIENT ASSIST WITH HEELS BRIDGED ON PILLOW. ALARM ON. CALL LIGHT WITHIN REACH. WILL CONTINUE TO MONITOR.
--- NOTE | 2020-08-24 01:31 | NUR ---
I have reviewed this patient and I concur with the Shift Assessment completed by the Licensed Practical Nurse today this shift.
--- NOTE | 2020-08-24 01:52 | NUR ---
PATIENT EYES CLOSED. RESPIRATIONS 18 & EVEN. BED LOW. ALARM ON. CALL LIGHT WITHIN REACH. WILL CONTINUE TO MONITOR.
--- NOTE | 2020-08-24 06:31 | NUR ---
PATIENT USED CALL LIGHT FOR ASSIST TO BATHROOM. MINIMAL ASSIST. PATIENT HAD VOID & BM. WASHED HANDS & FACE. RETURNED TO LOW BED. CALL LIGHT WITHIN REACH. ALARM ON. WILL CONTINUE TO MONITOR.
--- NOTE | 2020-08-24 07:24 | NUR ---
PT RESTING IN BED WITH EYES OPEN CALL LIGHT IN REACH WILL MONITER
[2020-08-24 07:30] VITALS: BP 164/86
--- NOTE | 2020-08-24 18:43 | NUR ---
PT RESTING IN BED WITH EYES OPEN CALL LIGHT IN REACH NO PROBLEMS WILL MONITER
--- NOTE | 2020-08-24 20:00 | NUR ---
PATIENT RECEIVED SITTINGUP IN BED WATCHING TV. ASSESSMENT & VITAL SIGNS DONE. PATIENT TOILETED, BRIEF CHANGE. VOID & BM. RETURNED TO LOW BED. ALARM ON. CALL LIGHT WITHIN REACH. WILL CONTINUE TO MONITOR.
--- NOTE | 2020-08-24 23:30 | NUR ---
I have reviewed this patient and I concur with the Shift Assessment completed by the Licensed Practical Nurse today this shift.
--- NOTE | 2020-08-25 04:48 | NUR ---
PATIENT USED CALL LIGHT FOR ASSIST. PATIENT AMBULATING WITH ROLLING WALKER INTO BATHROOM. PATIENT HAD INCONTINENT URINE IN BRIEF & ON PAD. PATIENT HAD VOID. CLEANED PERIARA & BUTTOCKS OF URINE. PATIENT WASHED HANDS & FACE. PATIENT RETURNED TO LOW BED AMBULATING WITH ROLLING WALKER. ALARM ON. CALL LIGHT WITHIN REACH. WILL CONTINUE TO MONITOR.
--- NOTE | 2020-08-25 07:21 | NUR ---
PT RESTING IN BED WITH EYES OPEN CALL LIGHT IN REACH WILL MONITER
[2020-08-25 08:00] VITALS: BP 166/98
--- NOTE | 2020-08-25 17:02 | NUR ---
PT RESTING IN BED WITH EYES OPEN CALL LIGHT IN REACH NO PROBLEMS WILL MONITER
--- NOTE | 2020-08-25 18:24 | NUR ---
PT RESTING IN BED WITH EYES OPEN CALL LIGHT IN REACH WILL MONITER
--- NOTE | 2020-08-25 20:00 | NUR ---
PATIENT RECEIVED SITTING UP IN BED. ASSESSMENT & VITAL SIGNS DONE. BP ELEVATED. NIGHT BP ELEVATED EACH TIME. PATIENT ALSO REINTERATED BP "HIGH AT NIGHT." PATIENT TOILETED & HAD VOID ONLY. RETURNED TO LOW BED. ALARM ON. CALL LIGHT WITHIN REACH. WILL CONTINUE TO MONITOR.
--- NOTE | 2020-08-25 21:20 | NUR ---
PATIENT TOILETED. HANDS & FACE WASHED. SON CALLED CONCERNED ABOUT PATIENT BP BEING HIGH. SON NOTIFIED DR. WILL HAVE NOTE TO REVIEW HIGH BP AT NIGHT. THIS NURSE WROTE NOTE ON DR. EMANUEL SHEET TO REVIEW NIGHT TIME BP. PATIENT RETURNED TO LOW BED. ALARM ON. CALL LIGHT WITHIN REACH. WILL CONTINUE TO MONITOR.
[2020-08-25 22:11] VITALS: BP 174/90
--- NOTE | 2020-08-26 00:37 | NUR ---
I have reviewed this patient and I concur with the Shift Assessment completed by the Licensed Practical Nurse today this shift.
--- NOTE | 2020-08-26 02:06 | NUR ---
PATIENT EYES CLOSED. RESPIRATIONS 18 & EVEN. BED LOW. ALARM ON. CALL LIGHT WITHIN REACH. WILL CONTINUE TO MONITOR.
--- NOTE | 2020-08-26 02:29 | NUR ---
PATIENT ALARM ON. PATIENT GETTING UP WITH ROLLING WALKER. STANDBY ASSIST TO BATHROOM. PATIENT HAD VOID IN BRIEF & TOILET. PATIENT CLEANED PERIAREA & BUTTOCKS. NEW BRIEF ON. WASHED HER HANDS. RETURNED TO LOW BED. ALARM ON. LEGS ELEVATED ON PILLOW. CALL LIGHT WITHIN REACH. WILL CONTINUE TO MONITOR.
--- NOTE | 2020-08-26 04:52 | NUR ---
PATIENT STANDBY ASSIST INTO & OUT OF BED. VOID ONLY. WASHED HANDS & FACE. BRUSHED TEETH. RETURNED TO LOW BED AMBULATING WITH ROLLING WALKER. ALARM ON. CALL LIGHT WITHIN REACH. WILL CONTINUE TO MONITOR.
[2020-08-26 07:59] VITALS: BP 174/101
[2020-08-26 08:14] LABS: BASOPHILS 0.5 % (0-2); EOSINOPHILS 3.7 % (0-7); HEMATOCRIT 39.7 % (36.0-48.0); HEMOGLOBIN 12.6 g/dL (12-16); IMMATURE GRANULOCYTES 0.3 % (0-5); LYMPHOCYTES 39.5 % (15-50); MCH 28.6 pg (26.0-34.0); MCHC 31.7 g/dL (31.0-37.0); MEAN PLATELET VOLUME 10.5 fL (7.4-10.4); MONOCYTES 5.9 % (2-11); NEUTROPHILS 50.1 % (40-80); PLATELET COUNT 237 10x3/uL (130-400); RBC 4.41 10x6/uL (4.00-5.40); RDW 13.7 % (11.5-14.5); WBC 3.8 10x3/uL (4.8-10.8)
[2020-08-26 08:16] LABS: ANION GAP 12.8 mmol/L (8-16); CALCIUM 9.2 mg/dL (8.5-10.1); CARBON DIOXIDE 28.2 mmol/L (21.0-32.0); CREATININE - SERUM 1.3 mg/dL (0.6-1.3)
--- NOTE | 2020-08-26 09:08 | NUR ---
Nutrition Follow-up: Diet: Cardiac PO intake: 100% x last 9 meals Last BM: 08/25/20. Wt: 170# (08/17/20), no new weight Meds noted: k-dur, probiotics, zithromax, keppra. Labs noted: GFR 41(L) Recommend continue current diet. RD following.
--- NOTE | 2020-08-26 09:40 | NUR ---
SHE IS ALERT, USING THE WALKER TO GO TO THE BATHROOM. SHE IS SETTING UP IN THE WHEELCHAIR. THE CALL LIGHT IS WITHIN REACH AND THE BED ALARM IS ON.
--- NOTE | 2020-08-26 20:00 | NUR ---
RECEIVED PATIENT SITTING UP IN BED WATCHING TV. ASSESSMENT AND VITAL SIGNS DONE. BED LOW. CALL LIGHT WITHIN REACH. ALARM ON. WILL CONTINUE TO MONITOR.
[2020-08-26 21:25] VITALS: BP 140/84
[2020-08-27 08:13] VITALS: BP 164/101
--- NOTE | 2020-08-27 08:16 | NUR ---
SHE IS ALERT, TOOK HER MEDICATIONS WITHOUT ANY PROBLEMS. SHE HAD A BM THIS MORNING. SHE IS WALKING TO THE BATHROOM WITH A WALKER. THE CALL LIGHT IS WITHIN REACH AND THE BED ALARM IS ON.
[2020-08-27 19:19] VITALS: BP 184/102
--- NOTE | 2020-08-27 20:09 | NUR ---
PT IN BED WATCHING TV, NO IMMEDIATE NEEDS NOTED, RESPIRATIONS EVEN/UNLABORED, SAFETY PRECAUTIONS IN PLACE, FLUIDS/CALL LIGHT WITHIN REACH
[2020-08-28 07:53] VITALS: BP 170/94
[2020-08-28 07:59] LABS: BASOPHILS 0.9 % (0-2); EOSINOPHILS 3.6 % (0-7); HEMATOCRIT 38.3 % (36.0-48.0); HEMOGLOBIN 12.2 g/dL (12-16); IMMATURE GRANULOCYTES 0.6 % (0-5); LYMPHOCYTES 38.9 % (15-50); MCH 28.6 pg (26.0-34.0); MCHC 31.9 g/dL (31.0-37.0); MCV 89.9 fL (80.0-100.0); MEAN PLATELET VOLUME 10.3 fL (7.4-10.4); MONOCYTES 7.5 % (2-11); NEUTROPHILS 48.5 % (40-80); PLATELET COUNT 191 10x3/uL (130-400); RBC 4.26 10x6/uL (4.00-5.40); WBC 3.3 10x3/uL (4.8-10.8)
[2020-08-28 08:09] LABS: ANION GAP 8.6 mmol/L (8-16); CARBON DIOXIDE 28.3 mmol/L (21.0-32.0); CREATININE - SERUM 1.3 mg/dL (0.6-1.3); POTASSIUM - SERUM 3.9 mmol/L (3.5-5.1)
--- NOTE | 2020-08-28 08:21 | NUR ---
PATIENT IS ALERT/ORIENT. SITTING UP IN BED TO EAT BREAKFAST. VOICES NO NEEDS AT THIS TIME. WILL CONTINUE WITH PLAN OF CARE
--- NOTE | 2020-08-28 09:52 | NUR ---
PATIENT WORKING WITH PHYSICAL THERAPIST. WALKING DOWN HALLWAY WITH WHEELED WALKER. DENIES ANY PAIN/DISC AT THIS TIME.
--- NOTE | 2020-08-28 14:11 | NUR ---
PATIENT BACK IN REHAB ROOM. WORKING WITH OCCUPATIONAL THERAPIST
--- NOTE | 2020-08-28 14:12 | NUR ---
CARE TEAM MEETING: PATIENT IS DOING WELL IN THERAPY. HER TENATIVE DC DATE IS 09/03/20. WILL CONTINUE TO FOLLOW WITH PATIENT AND WILL ASSIST WITH DC NEEDS.
--- NOTE | 2020-08-28 19:32 | NUR ---
PT IN BED WATCHING TV, NO IMMEDIATE NEEDS NOTED, RESPIRATIONS EVEN/UNLABORED,SAFETY PRECAUTIONS IN PLACE, FLUIDS/CALL LIGHT WITHIN REACH
[2020-08-28 20:54] VITALS: BP 177/91
--- NOTE | 2020-08-29 02:19 | NUR ---
PT ASLEEP, AROUSES EASILY TO VOICE, RESPIRATIONS EVEN/UNLABORED, NO IMMEDIATE NEEDS NOTED, SAFETY PRECAUTIONS IN PLACE, FLUIDS/CALL LIGHT WITHIN REACH
--- NOTE | 2020-08-29 08:00 | NUR ---
PT RESTING IN BED EATING BREAKFAST TOLERATING WELL WILL MONITER
[2020-08-29 08:11] VITALS: BP 167/83
--- NOTE | 2020-08-29 12:57 | NUR ---
Nutrition Follow-up: Patient states that she is still having a lot of diarrhea. Diet: Cardiac Mech Soft PO intake: ~81% average x last 9 meals Last BM: 08/28/20. Wt: 170# (08/17/20) Meds noted: imodium (PRN), probiotics, keppra. Labs noted. Recommend continue current diet and honor food preferences within diet restrictions. RD following.
--- NOTE | 2020-08-29 18:04 | NUR ---
PT RESTING IN BED WITH EYES OPEN CALL LIGHT IN REACH WILL MONITER
--- NOTE | 2020-08-29 19:10 | NUR ---
PT SITTING UP IN BED WATCHING TV. CL IN REACH. DENIES NEEDS AT THIS TIME. BED IN LOW SIDE RAILS X2. A/O X4. RESP EVEN AND UNLABORED. LUNGS CLEAR. BOWEL ACTIVE X4. WILL CONTINUE TO MONITOR.
[2020-08-29 21:24] VITALS: BP 176/94
--- NOTE | 2020-08-30 02:30 | NUR ---
ASSISTED TO AND FROM BATHROOM. CL IN REACH. DENIES FURTHER NEEDS. BACK IN BED. WCTM
[2020-08-30 08:00] VITALS: BP 160/77
--- NOTE | 2020-08-30 08:00 | NUR ---
PT RESTING IN BED WITH EYES OPEN CALL LIGHT IN REACH NO PROBLEMS WILL MONITER
--- NOTE | 2020-08-30 18:25 | NUR ---
PT RESTING IN BED WITH EYES OPEN CALL LIGHT IN REACH WILL MONITER
--- NOTE | 2020-08-30 18:26 | NUR ---
PT RESTING IN BED WITH EYES OPEN CALL LIGHT IN REACH NO PROBLEMS WILL MONITER
--- NOTE | 2020-08-30 20:00 | NUR ---
PATIENT RECEIVED SITTING UP IN BED. ASSESSMENT & VITAL SIGNS DONE. NO C/O PAIN OR DISTRESS AT THIS TIME. BED LOW. ALARM ON. SIDE TABLE WITHIN REACH. WILL CONTINUE TO MONITOR.
[2020-08-30 20:03] VITALS: BP 175/92
--- NOTE | 2020-08-31 02:41 | NUR ---
PATIENT EYES CLOSED. RESPIRATIONS 18 & EVEN. BED LOW. ALARM ON. CALL LIGHT WITHIN REACH. WILL CONTINUE TO MONITOR.
[2020-08-31 08:15] VITALS: BP 164/87
--- NOTE | 2020-08-31 08:48 | NUR ---
SHE IS ALERT, USING THE WALKER TO WALK TO THE BATHROOM. NO NEW ISSUES THIS MORNING. HER LEGS ARE LESS SWOLLEN THIS MORNING.THE CALL LIGHT IS WITHIN REACH AND THE BED ALARM IS ON.
[2020-08-31 19:58] VITALS: BP 149/97
--- NOTE | 2020-08-31 20:40 | NUR ---
PATIENT RECEIVED SITTING UP IN WHEELCHAIR AT BEDSIDE. ALARM ON. ASSESSMENT & VITAL SIGNS DONE. NO C/O PAIN OR DISTRESS. CALL LIGHT WITHIN REACH. WILL CONTINUE TO MONITOR.
--- NOTE | 2020-08-31 21:00 | NUR ---
PATIENT USED LIGHT FOR ASSIST. STANDBY ASSIST USING ROLLING WALKER INTO BATHROOM. PATIENT HAD VOID ONLY. PATIENT WASHED HER HANDS. AMBULATED USING ROLLING WALKER BACK TO LOW BED. PATIENT PAD TUCKED BETWEEN HER LEGS PER HER REQUEST. ALARM ON. CALL LIGHT WITHIN REACH. WILL CONTINUE TO MONITOR.
--- NOTE | 2020-09-01 01:33 | NUR ---
PATIENT EYES CLOSED. RESPIRATIONS 18 & EVEN. BED LOW. ALARM ON. CALL LIGHT WITHIN REACH. WILL CONTINUE TO MONITOR.
[2020-09-01 08:08] VITALS: BP 167/86
--- NOTE | 2020-09-01 08:45 | NUR ---
PATIENT IS ALERT/ORIENT. SITTING ON THE SIDE OF THE BED TO EAT BREAKFAST. CALL LIGHT WITHIN REACH. VOICES NO NEEDS. WILL CONTINUE WITH PLAN OF CARE
--- NOTE | 2020-09-01 14:38 | NUR ---
I have reviewed this patient and I concur with the Shift Assessment completed by the Licensed Practical Nurse today this shift.
--- NOTE | 2020-09-01 15:20 | NUR ---
PATIENT HELPED INTO BATHROOM. STAND BY ASST WITH WHEELED WALKER
--- NOTE | 2020-09-01 17:30 | NUR ---
PRN IMMODIUM GIVEN FOR LOOSE STOOLS X2 PER PATIENT REQUEST
[2020-09-01 19:21] VITALS: BP 146/90
--- NOTE | 2020-09-01 20:00 | NUR ---
PATIENT RECEIVED LAYING IN BED. VITAL SIGNS & ASSESSMENT DONE. NO C/O PAIN OR DISTRESS. BED LOW. ALARM ON. CALL LIGHT WITHIN REACH. WILL CONTINUE TO MONITOR.
--- NOTE | 2020-09-01 21:40 | NUR ---
PATIENT ALARM SOUNDING. AUTOMOTIVE LUBE TECHNICIAN WENT IN ROOM. PATIENT IN BATHROOM SITTING ON COMMODE. AUTOMOTIVE LUBE TECHNICIAN TOLD THIS NURSE PATIENT ALARM SOUNDING & PATIENT ON COMMODE. THIS NURSE WENT IN PATIENT BATHROOM & HANDED HER BRIEF & PANTS. PATIENT STOOD UP & USED ROLLING WALKER TO AMBULATE. WASHED HER HANDS. RETURNED TO LOW BED. FEET ELEVATED ON PILLOW. SIDE TABLE & CALL LIGHT WITHIN REACH. WILL CONTINUE TO MONITOR.
--- NOTE | 2020-09-02 04:56 | NUR ---
PATIENT SHOWER GIVEN. PATIENT SETUP & MINIMAL ASSIST. BED LINENS CHANGED. RETURNED TO LOW BED. ALARM ON. CALL LIGHT WITHIN REACH. WILL CONTINUE TO MONITOR.
--- NOTE | 2020-09-02 06:00 | NUR ---
I have reviewed this patient and I concur with the Shift Assessment completed by the Licensed Practical Nurse today this shift.
[2020-09-02 07:41] VITALS: BP 139/76
--- NOTE | 2020-09-02 08:00 | NUR ---
PT RESTING IN BED WITH EYES OPEN CALL LIGHT IN REACH WILL MONITER
[2020-09-02 08:47] LABS: BASOPHILS 0.7 % (0-2); HEMATOCRIT 38.1 % (36.0-48.0); HEMOGLOBIN 12.2 g/dL (12-16); LYMPHOCYTES 44.2 % (15-50); MCH 28.6 pg (26.0-34.0); MCV 89.2 fL (80.0-100.0); MEAN PLATELET VOLUME 10.8 fL (7.4-10.4); MONOCYTES 7.2 % (2-11); NEUTROPHILS 43.9 % (40-80); PLATELET COUNT 203 10x3/uL (130-400); RBC 4.27 10x6/uL (4.00-5.40); RDW 13.9 % (11.5-14.5); WBC 2.8 10x3/uL (4.8-10.8)
[2020-09-02 09:09] LABS: ANION GAP 14.2 mmol/L (8-16); CALCIUM 9.1 mg/dL (8.5-10.1); CARBON DIOXIDE 24.1 mmol/L (21.0-32.0); CREATININE - SERUM 1.2 mg/dL (0.6-1.3); POTASSIUM - SERUM 4.3 mmol/L (3.5-5.1)
[2020-09-02] MEDS ORDERED: NORVASC5 MG PO (09:09)
--- NOTE | 2020-09-02 10:54 | NUR ---
PATIENT DISCHARGING HOME WITH FAMILY 09/03/20. [facility] WILL PROVIDE THERAPY AT HOME. CHARISSA SIGNED, IMM SERVED AND EXPLAINED, ONE GIVEN TO PATIENT AND ONE FILED IN CHART.NO COMPARE DATA REVIEWED PER PATIENT REQUEST. PATIENT SON MAKING AN APPOINTMENT WITH DR. GEORGE FOR PCP, DR. BERNSTEIN 11/22/20 @10:15. DISCHARGE INSTRUCTIONS FAXED TO PCP, HOME HEALTH AND REVIEWED WITH PATIENT AND SON.
--- NOTE | 2020-09-02 18:19 | NUR ---
PT RESTING IN BED WITH EYES OPEN CALL LIGHT IN REACH WILL MONITER
[2020-09-02 21:19] VITALS: BP 168/84
--- NOTE | 2020-09-02 23:22 | NUR ---
PT IN BED WATCHING TV, NO IMMEDIATE NEEDS NOTED, RESPIRATIONS EVEN/UNLABORED, SAFETY PRECAUTIONS IN PLACE, FLUIDS/CALL LIGHT WITHIN REACH, PT GOES HOME TOMORROW
--- NOTE | 2020-09-03 07:28 | NUR ---
PT RESTING IN BED WITH EYES OPEN CALL LIGHT IN REACH WILL MONITER
[2020-09-03 07:43] VITALS: BP 142/99
[2020-09-03] MEDS ORDERED: ISOSORBIDE DINI10 MG PO (11:26)
[2020-09-03] MEDS ORDERED: IMODIUM2 MG PO (11:28)
[2020-09-03] MEDS ORDERED: NYSTATIN1 PWD TOPICAL (11:29)
[2020-09-03] MEDS ORDERED: K-DUR20 MEQ PO (11:29)
[2020-09-03] MEDS ORDERED: COZAAR100 MG PO (11:29)
--- NOTE | 2020-09-03 16:00 | NUR ---
PT DISCHARGED TO HOME VIA WHEELCHAIR WITH SON DISCHARG SUMMARY AND MEDS REVIEWED WITH PT MEDS CALLED TO [facility] PT TOLERATED WELL
== END 2020-09-03 18:15 | disposition home health service (06) | DRG 57 ==
LOC: D.REHAB 16:38
PROVIDERS: ADMIT Emergency Medicine; ATTEND Emergency Medicine
DX: I69.351 Hemiplegia and hemiparesis following cerebral infarction affecting right dominant side (principal); Z86.711 Personal history of pulmonary embolism; R13.11 Dysphagia, oral phase; I50.9 Heart failure, unspecified; Z85.42 Personal history of malignant neoplasm of other parts of uterus; R53.1 Weakness; R47.81 Slurred speech; R47.1 Dysarthria and anarthria; N18.9 Chronic kidney disease, unspecified; D64.9 Anemia, unspecified; R91.1 Solitary pulmonary nodule; E04.1 Nontoxic single thyroid nodule

== ENCOUNTER → 2021-01-13 12:25 | Outpatient (CLI) | payer MEDICARE, BC ==
[2020-10-14 10:15] VITALS: BMI 25.1
[~2021-01-13 12:25] MED LIST changes: +COZAAR100 MG PO; +IMODIUM2 MG PO; +ISOSORBIDE DINI10 MG PO; +K-DUR20 MEQ PO; +NORVASC5 MG PO; +NYSTATIN1 PWD TOPICAL
[2021-01-13 13:01] LABS: BASOPHILS 0.6 % (0-2); EOSINOPHILS 2.7 % (0-7); HEMATOCRIT 40.2 % (36.0-48.0); HEMOGLOBIN 12.9 g/dL (12-16); IMMATURE GRANULOCYTES 0.3 % (0-5); LYMPHOCYTE ABS# 1.06 10x3/uL (1.18-3.74); LYMPHOCYTES 31.5 % (15-50); MCH 29.3 pg (26.0-34.0); MCHC 32.1 g/dL (31.0-37.0); MCV 91.2 fL (80.0-100.0); MEAN PLATELET VOLUME 10.2 fL (7.4-10.4); MONOCYTES 11.3 % (2-11); NEUTROPHILS 53.6 % (40-80); PLATELET COUNT 168 10x3/uL (130-400); RBC 4.41 10x6/uL (4.00-5.40); WBC 3.4 10x3/uL (4.8-10.8)
== END | disposition home or self-care (01) ==
LOC: D.LAB 12:25
PROVIDERS: ATTEND Psychiatry & Neurology Neurology
DX: R56.9 Unspecified convulsions (principal); G40.909 Epilepsy, unspecified, not intractable, without status epilepticus

== ENCOUNTER 2021-04-24 17:57 | Inpatient (IN) | payer MEDICARE, BC ==
[~2021-04-24] VITALS: Ht 167.6 cm; Wt 72.6 kg
[2021-04-24] MEDS ORDERED: LASIX20 MG PO (18:30)
[2021-04-24] MEDS ORDERED: TENORMIN25 MG PO (18:30)
[2021-04-24 19:00] VITALS: BP 143/62
[2021-04-24 19:02] LABS: HEMATOCRIT 37.3 % (36.0-48.0); HEMOGLOBIN 12.3 g/dL (12-16); LYMPHOCYTES 35.4 % (15-50); MCHC 32.8 g/dL (31.0-37.0); MCV 88.4 fL (80.0-100.0); MEAN PLATELET VOLUME 8.6 fL (7.4-10.4); MONOCYTES 10.4 % (2-11); NEUTROPHILS 50.2 % (40-80); PLATELET COUNT 169 10x3/uL (130-400); RBC 4.22 10x6/uL (4.00-5.40); RDW 15.5 % (11.5-14.5); WBC 3.3 10x3/uL (4.8-10.8)
[2021-04-24 19:09] LABS: ANION GAP 12.1 mmol/L (8-16); CALCIUM 8.9 mg/dL (8.5-10.1); CARBON DIOXIDE 27.1 mmol/L (21.0-32.0); CREATININE - SERUM 1.5 mg/dL (0.6-1.3); POTASSIUM - SERUM 4.2 mmol/L (3.5-5.1)
[2021-04-24 19:25] LABS: ALBUMIN 3.6 g/dL (3.4-5.0); BILIRUBIN - TOTAL 0.73 mg/dL (0.2-1.3); MAGNESIUM - SERUM 2.3 mg/dL (1.8-2.4); PROTEIN - SERUM 7.6 g/dL (6.4-8.2); THYROID STIMULATING HORMONE 2.15 uIU/mL (0.36-3.74)
[2021-04-24 21:00] VITALS: BP 151/70
[2021-04-24 23:00] VITALS: BP 178/89
--- NOTE | 2021-04-24 23:03 | NUR ---
PT PRPOVIDED WITH SANDWICH TRAY AND WATER UPON REPQUEST
[2021-04-25 01:00] VITALS: BP 156/76
--- NOTE | 2021-04-25 01:46 | NUR ---
PT LYING IN BED RESTING AT THIS TIME. NO ACUTE DISTRESS NOTED, BED IN LOWEST POSITION, CALL LIGHT WITHIN REACH
[2021-04-25 03:00] VITALS: BP 158/80
[2021-04-25 08:21] LABS: HEMOGLOBIN 12.4 g/dL (12-16); LYMPHOCYTES 44.5 % (15-50); MCH 28.8 pg (26.0-34.0); MCHC 32.6 g/dL (31.0-37.0); MCV 88.5 fL (80.0-100.0); MEAN PLATELET VOLUME 9.2 fL (7.4-10.4); MONOCYTES 11.3 % (2-11); NEUTROPHILS 39.2 % (40-80); PLATELET COUNT 167 10x3/uL (130-400); RBC 4.29 10x6/uL (4.00-5.40); RDW 15.5 % (11.5-14.5); WBC 3.1 10x3/uL (4.8-10.8)
[2021-04-25 08:25] LABS: APTT 27.4 SECONDS (22.8-39.4); INR 1.34 (0.85-1.17); PROTIME 15.3 SECONDS (11.6-15.0)
[2021-04-25 08:38] LABS: ALBUMIN 3.4 g/dL (3.4-5.0); ANION GAP 10.1 mmol/L (8-16); BILIRUBIN - TOTAL 0.96 mg/dL (0.2-1.3); CALCIUM 8.7 mg/dL (8.5-10.1); CARBON DIOXIDE 27.6 mmol/L (21.0-32.0); CREATININE - SERUM 1.4 mg/dL (0.6-1.3); MAGNESIUM - SERUM 2.4 mg/dL (1.8-2.4); PHOSPHOROUS 3.8 mg/dL (2.5-4.9); POTASSIUM - SERUM 3.7 mmol/L (3.5-5.1); PROTEIN - SERUM 7.2 g/dL (6.4-8.2)
--- NOTE | 2021-04-25 10:14 | NUR ---
DR BERNSTEIN NOTIFIED OF CONSULT
--- NOTE | 2021-04-25 14:04 | NUR ---
PT REPORT CALLED TO RAZA QUIROZ AT THIS TIME.
[2021-04-25 15:01] VITALS: BP 167/77; BMI 25.8
[2021-04-25] MEDS ORDERED: ISOSORBIDE DINI10 MG PO (15:15)
[2021-04-25] MEDS ORDERED: PROPAFENONE HC150 MG PO (15:17)
--- NOTE | 2021-04-25 15:51 | NUR ---
RCVED PT FROM ER VIA HOSPITAL STAFF AND BED, SON AT THE BEDSIDE. PT IS ALERT AND ORIENTED X 4. VS STABLE WITH NO CURRENT S/S OF DISTRESS AT THIS TIME, DENIES CURRENT NEEDS, WILL CONT TO MONITOR.
--- NOTE | 2021-04-25 16:11 | NUR ---
TELE PLACED ON PT.
[2021-04-25 20:00] VITALS: BP 182/82
[2021-04-26 06:42] LABS: BASOPHILS 0.7 % (0-2); EOSINOPHILS 3.7 % (0-7); HEMATOCRIT 36.4 % (36.0-48.0); HEMOGLOBIN 12.1 g/dL (12-16); MCH 29.1 pg (26.0-34.0); MCHC 33.1 g/dL (31.0-37.0); MCV 87.8 fL (80.0-100.0); MEAN PLATELET VOLUME 9.3 fL (7.4-10.4); MONOCYTES 10.9 % (2-11); NEUTROPHILS 44.7 % (40-80); PLATELET COUNT 153 10x3/uL (130-400); RBC 4.15 10x6/uL (4.00-5.40); RDW 15.4 % (11.5-14.5); WBC 3.3 10x3/uL (4.8-10.8)
[2021-04-26 07:18] LABS: ALBUMIN 3.1 g/dL (3.4-5.0); ANION GAP 13.4 mmol/L (8-16); BILIRUBIN - TOTAL 0.93 mg/dL (0.2-1.3); CALCIUM 8.4 mg/dL (8.5-10.1); CARBON DIOXIDE 26.5 mmol/L (21.0-32.0); CREATININE - SERUM 1.4 mg/dL (0.6-1.3); MAGNESIUM - SERUM 2.2 mg/dL (1.8-2.4); PHOSPHOROUS 3.7 mg/dL (2.5-4.9); POTASSIUM - SERUM 3.9 mmol/L (3.5-5.1); PROTEIN - SERUM 6.7 g/dL (6.4-8.2)
--- NOTE | 2021-04-26 07:30 | NUR ---
REC'D IN BED AWAKE AND ALERT. RSP EVEN AND UNLABORED WITH NO DISTRESS NOTED. CAN EXPRESS NEEDS AND WANTS. NO C/O NOTED OR VOICED. ASSESSMENT COMPLETED. C/L IN REACH AT BEDSIDE.
[2021-04-26 09:19] VITALS: BP 126/80
--- NOTE | 2021-04-26 11:15 | NUR ---
I have reviewed this patient and I concur with the Shift Assessment completed by the Licensed Practical Nurse today this shift.
[2021-04-26 12:47] VITALS: Ht 167.6 cm; Wt 72.6 kg
[2021-04-26 12:51] VITALS: BP 162/75
[2021-04-26 16:13] VITALS: BP 165/83
--- NOTE | 2021-04-26 19:03 | MORECARE ---
CASE MANAGEMENT DISCHARGE SUMMARY PATIENT: CHRISTAL HANLEY UNIT: [id number] ADM DATE: 04/25/21 AGE: 89 : 32 SEX: F ROOM/BED: D.2209 AUTHOR: CONSTANTIN,DOC PHYSICIAN: REFERRING PHYSICIAN: MAITE CROCKETT MD DATE OF SERVICE: 04/26/21 Case Management Discharge Planning Summary DCP REVIEW SUMMARY ANTICIPATED D/C DATE: 04/26/2021 EXPECTED LOS : 1 CASE STATUS: DCP Initiated INITIAL REVIEW: 04/24/2021 INITIAL REVIEWER: Jeffery Peña FINAL DISCHARGE DISPOSITION: : FINAL REVIEWER: FINAL REVIEW DATE: DCP Focus Questions & Answers QUESTION: ANSWER : PATIENT: CHRISTAL HANLEY ENCOUNTER: [id number] MEDICAL RECORD#: [id number] ADMISSION DATE: 04/25/2021 DISCHARGE DATE: ATTENDING MD: MAITE PUCKETT : AGE: 89 MARITAL STATUS: W DC PLAN ID: [id number] FACILITY: [facility] PRINTED ON: 04/26/21 19:03 CT All edits/amendments must be made on the electronic document DICTATION DATE: 04/26/211902 FISHER CLAM: IDALMIS 04/26/211902 RPT#: [id number] DC DATE: STATUS: ADM IN [facility] [address] [place] [address] END OF REPORT
--- NOTE | 2021-04-26 19:14 | MORECARE ---
CASE MANAGEMENT DISCHARGE SUMMARY PATIENT: CHRISTAL HANLEY UNIT: [id number] ADM DATE: 04/25/21 AGE: 89 : 32 SEX: F ROOM/BED: D.2209 AUTHOR: ROBERT KILLIAN PHYSICIAN: REFERRING PHYSICIAN: MAITE CROCKETT MD DATE OF SERVICE: 04/26/21 Case Management Discharge Planning Summary COMMENTS ENTERED DATE: 04/26/21 19:09 CT COMMENT TYPE: Discharge Planning REVIEWER: Jeffery Peña CM met with patient to complete DC plan and to evaluate needs. Patient lives with family and has strong support. Patient stated that she cannot go home today because her son and grandson are out of town for weddings and she doesn't have anyone to help her at home. Patient sated that her sonFidel (Jaque), is her person to notify. Patient stated that her home is safe and has electricity and running water. Patient stated that the home has a ramp to enter and she is able to manage home entry without difficulty. Patient stated that she has no problems paying for medications and she fills her medications at [facility]. Patient stated that her primary care physicians at "[facility]". At discharge, the patient plans to return home and feels this is a safe discharge. CM discussed availability of home health, rehab services, and medical equipment. Patient declined HHS, SNF, IPR, and DME. CHARISSA home health declination signed and placed in chart. Patient stated she has a cane and walker. Patient voiced no other needs at this time and is satisfied with DC plan. Transportation provider at discharge will be with her son. DC IMM delivered, explained, signed by the patient, and placed in chart. Signed form also left with the patient. CM will continue to follow and will assist as needed with dc plans/needs DCP REVIEW SUMMARY ANTICIPATED D/C DATE: 04/26/2021 EXPECTED LOS : 1 CASE STATUS: DCP Initiated INITIAL REVIEW: 04/24/2021 INITIAL REVIEWER: Jeffery Peña FINAL DISCHARGE DISPOSITION: : FINAL REVIEWER: FINAL REVIEW DATE: DCP Focus Questions & Answers DCP Evaluation QUESTION: ANSWER Patient gives permission to discuss discharge plans with: (name, relationship and number) : Fidel monterroso (Jaque), Patient's ability to cope with chronic illness : d. No chronic illness Patient's current cognitive status: : *Oriented to person, place, situation, time and present Family / Caregiver's ability to cope with chronic illness: : a. Adequate (ability to meet patient's medical needs, ensures patient attends medical appts.) Patient and/or caregiver agree upon recommended discharge plan? : Yes Physical Status: : Mobility impaired Physical Status: : Partial care dependence Family / Caregiver's ability to cope with chronic illness: : a. Adequate (ability to meet patient's medical needs, ensures patient attends medical appts.) Functional screen assessment: : Basic needs can adequately be met by self Does the patient have the ability to pay for or attain post discharge needs / services? : Yes Partial Dependence, assistance required for: : Ambulation / Mobility Partial Dependence, assistance required for: : Bathing Partial Dependence, assistance required for: : Dressing Partial Dependence, assistance required for: : Eating Living Arrangements: : Home with Extended Family Is there a likelihood that the patient will require additional services to return to the preadmission environment? : No Equipment needed for post hospitalization: : None Baseline cognitive status: : *Oriented to person, place, situation, time and present Patient with capacity for self-care or can be cared for in same environment as prior to hospitalization? : Yes Physical environment modification needed / anticipated for discharge: : No Medication Management: : Patient states can afford medications Medication Management: : Patient states can read and understand medication labels Pharmacy name(s): : [email or web address] Does Patient have transportation to get home and to follow-up medical appointments when discharged from the hospital? : Yes Would patient like to participate in any Care Coordination programs (if applicable): : Not applicable Does the patient have electricity at home? : Yes Does the patient have running water in their house? : Yes Equipment in use: : Cane - Single Leg Equipment in use: : Walker - Rolling Mental health screen: : No mental health history DCP Re-evaluation QUESTION: ANSWER Would patient like to participate in any Care Coordination programs (if applicable): : Not applicable PATIENT: CHRISTAL HANLEY ENCOUNTER: [id number] MEDICAL RECORD#: [id number] ADMISSION DATE: 04/25/2021 DISCHARGE DATE: ATTENDING MD: MAITE PUCKETT : [id number] AGE: 89 MARITAL STATUS: W DC PLAN ID: [id number] FACILITY: [facility] PRINTED ON: 04/26/21 19:14 CT All edits/amendments must be made on the electronic document DICTATION DATE: 04/26/211912 [employer] INSTRUCTOR: IDALMIS 04/26/211912 RPT#: [id number] DC DATE: STATUS: ADM IN [facility] [address] [place] [address] END OF REPORT
[2021-04-26 20:00] VITALS: BP 137/64
[2021-04-27 04:00] VITALS: BP 181/86
[2021-04-27 05:29] LABS: BASOPHILS 0.6 % (0-2); EOSINOPHILS 4.5 % (0-7); HEMATOCRIT 36.3 % (36.0-48.0); HEMOGLOBIN 11.7 g/dL (12-16); IMMATURE GRANULOCYTES 0.3 % (0-5); LYMPHOCYTE ABS# 1.41 10x3/uL (1.18-3.74); LYMPHOCYTES 45.2 % (15-50); MCH 28.6 pg (26.0-34.0); MCHC 32.2 g/dL (31.0-37.0); MCV 88.8 fL (80.0-100.0); MEAN PLATELET VOLUME 11.1 fL (7.4-10.4); MONOCYTES 11.5 % (2-11); NEUTROPHIL ABS# 1.18 10x3/uL (1.56-6.13); NEUTROPHILS 37.9 % (40-80); PLATELET COUNT 164 10x3/uL (130-400); RBC 4.09 10x6/uL (4.00-5.40); RDW 14.5 % (11.5-14.5); WBC 3.1 10x3/uL (4.8-10.8)
[2021-04-27 05:40] LABS: ALBUMIN 2.9 g/dL (3.4-5.0); ANION GAP 8.2 mmol/L (8-16); BILIRUBIN - TOTAL 1.03 mg/dL (0.2-1.3); CALCIUM 8.4 mg/dL (8.5-10.1); CARBON DIOXIDE 29.4 mmol/L (21.0-32.0); CREATININE - SERUM 1.3 mg/dL (0.6-1.3); MAGNESIUM - SERUM 2.1 mg/dL (1.8-2.4); PHOSPHOROUS 3.7 mg/dL (2.5-4.9); POTASSIUM - SERUM 3.6 mmol/L (3.5-5.1); PROTEIN - SERUM 6.5 g/dL (6.4-8.2)
[2021-04-27 08:12] VITALS: BP 178/85
[2021-04-27 12:43] VITALS: BP 155/68
--- NOTE | 2021-04-27 14:11 | NUR ---
DISCHARGE INSTRUCTIONS REVIEWED AND SIGNED WITH PT AND GRANDSON IN ROOM, ALL QUESTIONS ANSWERED, PT VERBALIZED UNDERSTANDING, IV REMOVED, TIP INTACT, PT LEFT VIA WHEELCHAIR WITH HOSPITAL STAFF IN STABLE CONDITION, NO SIGNS OF DISTRESS
--- NOTE | 2021-04-27 15:12 | MORECARE ---
CASE MANAGEMENT DISCHARGE SUMMARY PATIENT: CHRISTAL HANLEY UNIT: [id number] ADM DATE: 04/25/21 AGE: 89 : 32 SEX: F ROOM/BED: D.2209 AUTHOR: ROBERT KILLIAN PHYSICIAN: REFERRING PHYSICIAN: MAITE CROCKETT MD DATE OF SERVICE: 04/27/21 Case Management Discharge Planning Summary COMMENTS ENTERED DATE: 04/26/21 19:09 CT COMMENT TYPE: Discharge Planning REVIEWER: Jeffery Peña CM met with patient to complete DC plan and to evaluate needs. Patient lives with family and has strong support. Patient stated that she cannot go home today because her son and grandson are out of town for weddings and she doesn't have anyone to help her at home. Patient sated that her sonFidel (Jaque), is her person to notify. Patient stated that her home is safe and has electricity and running water. Patient stated that the home has a ramp to enter and she is able to manage home entry without difficulty. Patient stated that she has no problems paying for medications and she fills her medications at [facility]. Patient stated that her primary care physicians at "[facility]". At discharge, the patient plans to return home and feels this is a safe discharge. CM discussed availability of home health, rehab services, and medical equipment. Patient declined HHS, SNF, IPR, and DME. CHARISSA home health declination signed and placed in chart. Patient stated she has a cane and walker. Patient voiced no other needs at this time and is satisfied with DC plan. Transportation provider at discharge will be with her son. DC IMM delivered, explained, signed by the patient, and placed in chart. Signed form also left with the patient. CM will continue to follow and will assist as needed with dc plans/needs DCP REVIEW SUMMARY ANTICIPATED D/C DATE: 04/26/2021 EXPECTED LOS : 1 CASE STATUS: DCP Initiated INITIAL REVIEW: 04/24/2021 INITIAL REVIEWER: Jeffery Peña FINAL DISCHARGE DISPOSITION: : FINAL REVIEWER: FINAL REVIEW DATE: DCP Focus Questions & Answers DCP Evaluation QUESTION: ANSWER Family / Caregiver's ability to cope with chronic illness: : a. Adequate (ability to meet patient's medical needs, ensures patient attends medical appts.) Patient gives permission to discuss discharge plans with: (name, relationship and number) : Fidel monterroso) Jaison, Patient's ability to cope with chronic illness : d. No chronic illness Patient's current cognitive status: : *Oriented to person, place, situation, time and present Patient and/or caregiver agree upon recommended discharge plan? : Yes Physical Status: : Mobility impaired Physical Status: : Partial care dependence Family / Caregiver's ability to cope with chronic illness: : a. Adequate (ability to meet patient's medical needs, ensures patient attends medical appts.) Functional screen assessment: : Basic needs can adequately be met by self Does the patient have the ability to pay for or attain post discharge needs / services? : Yes Partial Dependence, assistance required for: : Ambulation / Mobility Partial Dependence, assistance required for: : Bathing Partial Dependence, assistance required for: : Dressing Partial Dependence, assistance required for: : Eating Living Arrangements: : Home with Extended Family Is there a likelihood that the patient will require additional services to return to the preadmission environment? : No Equipment needed for post hospitalization: : None Baseline cognitive status: : *Oriented to person, place, situation, time and present Patient with capacity for self-care or can be cared for in same environment as prior to hospitalization? : Yes Physical environment modification needed / anticipated for discharge: : No Medication Management: : Patient states can afford medications Medication Management: : Patient states can read and understand medication labels Pharmacy name(s): : [facility] Does Patient have transportation to get home and to follow-up medical appointments when discharged from the hospital? : Yes Would patient like to participate in any Care Coordination programs (if applicable): : Not applicable Does the patient have electricity at home? : Yes Does the patient have running water in their house? : Yes Equipment in use: : Cane - Single Leg Equipment in use: : Walker - Rolling Mental health screen: : No mental health history DCP Re-evaluation QUESTION: ANSWER Would patient like to participate in any Care Coordination programs (if applicable): : Not applicable PATIENT: CHRISTAL HANLEY ENCOUNTER: [id number] MEDICAL RECORD#: [id number] ADMISSION DATE: 04/25/2021 DISCHARGE DATE: 04/27/2021 ATTENDING MD: MAITE PUCKETT : AGE: 89 MARITAL STATUS: W DC PLAN ID: [id number] FACILITY: [facility] PRINTED ON: 04/27/21 15:12 CT All edits/amendments must be made on the electronic document DICTATION DATE: 04/27/211511 DATA PROCESSOR: IDALMIS 04/27/211511 RPT#: [id number] DC DATE:04/27/21 STATUS: DIS IN [facility] [address] [place] [address] END OF REPORT
--- NOTE | 2021-04-28 10:19 | MORECARE ---
CASE MANAGEMENT DISCHARGE SUMMARY PATIENT: CHRISTAL HANLEY UNIT: [id number] ADM DATE: 04/25/21 AGE: 89 : 32 SEX: F ROOM/BED: D.2209 AUTHOR: ROBERT KILLIAN PHYSICIAN: REFERRING PHYSICIAN: MAITE CROCKETT MD DATE OF SERVICE: 04/28/21 Case Management Discharge Planning Summary COMMENTS ENTERED DATE: 04/26/21 19:09 CT COMMENT TYPE: Discharge Planning REVIEWER: Jeffery Peña CM met with patient to complete DC plan and to evaluate needs. Patient lives with family and has strong support. Patient stated that she cannot go home today because her son and grandson are out of town for weddings and she doesn't have anyone to help her at home. Patient sated that her sonFidel (Jaque), is her person to notify. Patient stated that her home is safe and has electricity and running water. Patient stated that the home has a ramp to enter and she is able to manage home entry without difficulty. Patient stated that she has no problems paying for medications and she fills her medications at [facility]. Patient stated that her primary care physicians at "[facility] At discharge, the patient plans to return home and feels this is a safe discharge. CM discussed availability of home health, rehab services, and medical equipment. Patient declined HHS, SNF, IPR, and DME. CHARISSA home health declination signed and placed in chart. Patient stated she has a cane and walker. Patient voiced no other needs at this time and is satisfied with DC plan. Transportation provider at discharge will be with her son. DC IMM delivered, explained, signed by the patient, and placed in chart. Signed form also left with the patient. CM will continue to follow and will assist as needed with dc plans/needs DCP REVIEW SUMMARY ANTICIPATED D/C DATE: 04/26/2021 EXPECTED LOS : 1 CASE STATUS: DCP Initiated INITIAL REVIEW: 04/24/2021 INITIAL REVIEWER: Jeffery Peña FINAL DISCHARGE DISPOSITION: : FINAL REVIEWER: FINAL REVIEW DATE: DCP Focus Questions & Answers DCP Evaluation QUESTION: ANSWER Patient and/or caregiver agree upon recommended discharge plan? : Yes Family / Caregiver's ability to cope with chronic illness: : a. Adequate (ability to meet patient's medical needs, ensures patient attends medical appts.) Patient's current cognitive status: : *Oriented to person, place, situation, time and present Patient's ability to cope with chronic illness : d. No chronic illness Patient gives permission to discuss discharge plans with: (name, relationship and number) : Fidel monterroso (Jaque), Does the patient have the ability to pay for or attain post discharge needs / services? : Yes Functional screen assessment: : Basic needs can adequately be met by self Family / Caregiver's ability to cope with chronic illness: : a. Adequate (ability to meet patient's medical needs, ensures patient attends medical appts.) Physical Status: : Partial care dependence Physical Status: : Mobility impaired Equipment needed for post hospitalization: : None Is there a likelihood that the patient will require additional services to return to the preadmission environment? : No Living Arrangements: : Home with Extended Family Partial Dependence, assistance required for: : Eating Partial Dependence, assistance required for: : Dressing Partial Dependence, assistance required for: : Bathing Partial Dependence, assistance required for: : Ambulation / Mobility Patient with capacity for self-care or can be cared for in same environment as prior to hospitalization? : Yes Baseline cognitive status: : *Oriented to person, place, situation, time and present Physical environment modification needed / anticipated for discharge: : No Medication Management: : Patient states can read and understand medication labels Medication Management: : Patient states can afford medications Pharmacy name(s): : [facility] Does Patient have transportation to get home and to follow-up medical appointments when discharged from the hospital? : Yes Would patient like to participate in any Care Coordination programs (if applicable): : Not applicable Does the patient have electricity at home? : Yes Does the patient have running water in their house? : Yes Equipment in use: : Walker - Rolling Equipment in use: : Cane - Single Leg Mental health screen: : No mental health history DCP Re-evaluation QUESTION: ANSWER Would patient like to participate in any Care Coordination programs (if applicable): : Not applicable PATIENT: CHRISTAL HANLEY ENCOUNTER: [id number] MEDICAL RECORD#: [id number] ADMISSION DATE: 04/25/2021 DISCHARGE DATE: 04/27/2021 ATTENDING MD: MAITE PUCKETT : AGE: 89 MARITAL STATUS: W DC PLAN ID: [id number] FACILITY: [facility] PRINTED ON: 04/28/21 10:19 CT All edits/amendments must be made on the electronic document DICTATION DATE: 04/28/21 1019 BRAKE ASSEMBLER: IDALMIS 04/28/21 1019 RPT#: [id number] DC DATE:04/27/21 STATUS: DIS IN [facility] [address] [place] [address] END OF REPORT
== END 2021-04-27 13:10 | disposition home or self-care (01) | DRG 69 ==
LOC: D.ER 17:57 → OBSVTIME 19:35 → D.EDHOLD 19:35 → D.MS 04-25 14:35
PROVIDERS: Emergency Medicine; ADMIT Emergency Medicine; ATTEND Emergency Medicine
DX: G45.9 Transient cerebral ischemic attack, unspecified (principal); N17.9 Acute kidney failure, unspecified; G61.0 Guillain-Barre syndrome; Z79.01 Long term (current) use of anticoagulants; Z86.711 Personal history of pulmonary embolism; Z86.73 Personal history of transient ischemic attack (TIA), and cerebral infarction without residual deficits; I12.9 Hypertensive chronic kidney disease with stage 1 through stage 4 chronic kidney disease, or unspecified chronic kidney disease; N18.2 Chronic kidney disease, stage 2 (mild)

== ENCOUNTER 2021-05-04 16:02 | Inpatient (IN) | payer MEDICARE, BC ==
[~2021-05-04] VITALS: Ht 167.6 cm; Wt 74.5 kg
[~2021-05-04 16:02] MED LIST changes: +LASIX20 MG PO
[2021-05-04 16:35] LABS: BASOPHILS 1.3 % (0-2); EOSINOPHILS 2.7 % (0-7); HEMOGLOBIN 13.6 g/dL (12-16); LYMPHOCYTES 28.7 % (15-50); MCHC 33.2 g/dL (31.0-37.0); MCV 87.4 fL (80.0-100.0); MEAN PLATELET VOLUME 9.4 fL (7.4-10.4); NEUTROPHILS 56.3 % (40-80); RBC 4.69 10x6/uL (4.00-5.40); RDW 15.1 % (11.5-14.5); WBC 6.1 10x3/uL (4.8-10.8)
[2021-05-04 16:38] LABS: PLATELET COUNT 248 10x3/uL (130-400)
[2021-05-04 16:44] VITALS: BP 178/92
[2021-05-04 16:55] LABS: ANION GAP 14.7 mmol/L (8-16); CALCIUM 9.2 mg/dL (8.5-10.1); CARBON DIOXIDE 27.4 mmol/L (21.0-32.0); CREATININE - SERUM 1.5 mg/dL (0.6-1.3); POTASSIUM - SERUM 5.1 mmol/L (3.5-5.1)
[2021-05-04 17:00] LABS: ALBUMIN 3.7 g/dL (3.4-5.0); MAGNESIUM - SERUM 2.2 mg/dL (1.8-2.4); PROTEIN - SERUM 8.8 g/dL (6.4-8.2)
[2021-05-04 17:39] LABS: INR 2.21 (0.85-1.17); PROTIME 22.8 SECONDS (11.6-15.0)
[2021-05-04 17:50] LABS: D-DIMER-QUANTITATIVE 0.45 ug/mLFEU (0.20-0.54)
[2021-05-04 18:26] LABS: APTT 32.8 SECONDS (22.8-39.4)
[2021-05-04 18:44] VITALS: BP 163/87
--- NOTE | 2021-05-04 18:47 | NUR ---
REPORT CALLED TO MARICHUY
[2021-05-04 20:00] VITALS: BP 118/63
[2021-05-04 23:22] VITALS: BP 118/63; BMI 26.5
[2021-05-05 04:00] VITALS: BP 167/75
[2021-05-05 06:31] LABS: BASOPHILS 0.7 % (0-2); EOSINOPHILS 3.7 % (0-7); HEMATOCRIT 38.1 % (36.0-48.0); HEMOGLOBIN 12.7 g/dL (12-16); LYMPHOCYTES 33.1 % (15-50); MCH 29.1 pg (26.0-34.0); MCHC 33.3 g/dL (31.0-37.0); MCV 87.3 fL (80.0-100.0); MEAN PLATELET VOLUME 9.1 fL (7.4-10.4); NEUTROPHILS 50.5 % (40-80); RBC 4.36 10x6/uL (4.00-5.40); RDW 15.2 % (11.5-14.5)
[2021-05-05 06:36] LABS: PLATELET COUNT 180 10x3/uL (130-400); WBC 3.6 10x3/uL (4.8-10.8)
[2021-05-05 07:06] LABS: ALBUMIN 3.3 g/dL (3.4-5.0); ANION GAP 11.8 mmol/L (8-16); BILIRUBIN - TOTAL 0.93 mg/dL (0.2-1.3); CARBON DIOXIDE 29.2 mmol/L (21.0-32.0); CREATININE - SERUM 1.5 mg/dL (0.6-1.3); MAGNESIUM - SERUM 2.2 mg/dL (1.8-2.4); PROTEIN - SERUM 7.2 g/dL (6.4-8.2)
--- NOTE | 2021-05-05 07:10 | NUR ---
REC'D IN BED AWAKE AND ALERT. RESP EVEN AND UNLABORED WITH NO DISTRESS NOTED CAN EXPRESS NEEDS AND WANTS. NO C/O NOTED OR VOICED AT THIS TIME. ASSESSMENT COMPLETED. C/L IN REACH AT BEDSIDE.
[2021-05-05 09:23] VITALS: BP 148/74
[2021-05-05 12:55] VITALS: BP 102/59
--- NOTE | 2021-05-05 13:37 | NUR ---
I have reviewed this patient and I concur with the Shift Assessment completed by the Licensed Practical Nurse today this shift.
[2021-05-05 13:48] VITALS: Ht 167.6 cm; Wt 74.5 kg
[2021-05-05] MEDS ORDERED: KEPPRA500 MG PO (15:06)
[2021-05-05] MEDS ORDERED: PROTONIX40 MG PO (15:07)
[2021-05-05 16:46] VITALS: BP 133/77
[2021-05-05 20:00] VITALS: BP 125/70
[2021-05-06] VITALS (7 sets, daily range): BP systolic 114–188; BP diastolic 58–78
[2021-05-06 05:55] LABS: BASOPHILS 0.8 % (0-2); EOSINOPHILS 4.7 % (0-7); HEMATOCRIT 36.6 % (36.0-48.0); LYMPHOCYTES 41.9 % (15-50); MCH 28.7 pg (26.0-34.0); MCHC 32.9 g/dL (31.0-37.0); MCV 87.5 fL (80.0-100.0); MEAN PLATELET VOLUME 9.2 fL (7.4-10.4); NEUTROPHILS 39.6 % (40-80); PLATELET COUNT 168 10x3/uL (130-400); RBC 4.18 10x6/uL (4.00-5.40); WBC 3.2 10x3/uL (4.8-10.8)
[2021-05-06 06:07] LABS: ALBUMIN 2.9 g/dL (3.4-5.0); ANION GAP 9.8 mmol/L (8-16); BILIRUBIN - TOTAL 0.66 mg/dL (0.2-1.3); CALCIUM 8.5 mg/dL (8.5-10.1); CARBON DIOXIDE 29.3 mmol/L (21.0-32.0); CREATININE - SERUM 1.4 mg/dL (0.6-1.3); MAGNESIUM - SERUM 2.2 mg/dL (1.8-2.4); POTASSIUM - SERUM 3.1 mmol/L (3.5-5.1); PROTEIN - SERUM 6.7 g/dL (6.4-8.2)
--- NOTE | 2021-05-06 07:15 | NUR ---
REC'D IN BED AWAKE. RESP EVEN AND UNLABORED WITH NO DISTRESS NOTED. CAN EXPRESS NEEDS AND WANTS. NO C/O NOTED OR VOICED. ASSESSMENT COMPLETED. C/L IN REACH.
--- NOTE | 2021-05-06 14:04 | NUR ---
REHAB PRESCREEN RECEIVED. PHYSICAL THERAPY SIGNED OFF TO TECH MOBILITY SHE AMBULATED 50 FEET WITH 0% ASSISTANCE, BUT DID HAVE FREQUENT STOPS BECAUSE SHE GOT DISTRACTED TELLING STORIES. OCCUPATIONAL THERAPY SAID SHE IS SUPERVISED OR MIN a WITH HER ADL'S. SHE DOES NOT PRESENT WITH A NEED FOR 3 HOURS OF THERAPY A DAY, AND THEREFORE WE WILL HAVE TO DECLINE THE PATIENT. THANK YOU FOR THE REFERRAL. Donta LOVELL RN CLINICAL LIAISON, INPATIENT REHAB.
--- NOTE | 2021-05-06 14:27 | MORECARE ---
CASE MANAGEMENT DISCHARGE SUMMARY PATIENT: CHRISTAL HANLEY UNIT: [id number] ADM DATE: 05/04/21 AGE: 89 : 32 SEX: F ROOM/BED: D.[facility] AUTHOR: CONSTANTIN,DOC PHYSICIAN: REFERRING PHYSICIAN: MAG GAMBOA DO DATE OF SERVICE: 05/06/21 Case Management Discharge Planning Summary COMMENTS ENTERED DATE: 05/06/21 14:16 CT COMMENT TYPE: Discharge Planning REVIEWER: Marianna Cueto CM MET WITH PATIENT ABOUT INPATIENT REHAB. I ALSO SPOKE WITH HER SON MR. LEAL ON THE PHONE AT [phone] AND HE AGREES TO INPATIENT REHAB AT [facility]. I AM FAXING REFERRAL OVER TO THEM NOW. SHE WAS NOT ACCEPTED TO OUR INPATIENT REHAB. CM TO FOLLOW AND ASSIST NEEDED. DCP REVIEW SUMMARY ANTICIPATED D/C DATE: EXPECTED LOS : CASE STATUS: DCP Initiated INITIAL REVIEW: 05/04/2021 INITIAL REVIEWER: Marianna Cueto FINAL DISCHARGE DISPOSITION: : FINAL REVIEWER: FINAL REVIEW DATE: DCP Focus Questions & Answers QUESTION: ANSWER : PATIENT: CHRISTAL HANLEY ENCOUNTER: [id number] MEDICAL RECORD#: [id number] ADMISSION DATE: 05/04/2021 DISCHARGE DATE: ATTENDING MD: MAG RAMIREZ : AGE: 89 MARITAL STATUS: W DC PLAN ID: [id number] FACILITY: [facility] PRINTED ON: 05/06/21 14:26 CT All edits/amendments must be made on the electronic document DICTATION DATE: 05/06/211425 FOREST PATHOLOGIST: IDALMIS 05/06/21 142 RPT#: [id number] DC DATE: STATUS: ADM IN [facility] [address] [place] [address] END OF REPORT
--- NOTE | 2021-05-06 14:35 | NUR ---
PATIENT WALKED 42 FEET MOD ASSIT VERY SLOW WALKED TO BATHROOM THAN AROUND THE CHAIR
--- NOTE | 2021-05-06 14:47 | NUR ---
OT NOTE: PT COMPLETED SUPINE TO SIT WITH MIN A-CGA. PT COMPLETED ADL MOBILITY WITH RW REQUIRED CGA. PT COMPLETED TOILETING WITH SBA. PT COMPLETED TOILET HYGIENE WITH SBA. PT COMPLETED SIT TO STAND WITH CGA-MIN A. PT COMPLETED HAND HYGIENE WITH SBA. PT REQUIRED MODERATE VERBAL CUES FOR INCREASED PARTICIPATION. PT DECLINED TO SIT UP IN CHAIR. PT PRIOR LEVEL OF FUNCTION AND CURRENT LEVEL OF FUNCTION ARE SAME. PT IS NOT MOTIVATED TO PERFORM AT A HIGHER LEVEL OF FUNCTION...HAS PHYSICAL ABILITY TO INCREASE IN INDEPENDENCE. [phone] THANK YOU, WILLAM SMALLS
--- NOTE | 2021-05-06 17:34 | NUR ---
I have reviewed this patient and I concur with the Shift Assessment completed by the Licensed Practical Nurse today this shift.
[2021-05-07 03:53] VITALS: BP 162/83
[2021-05-07 06:05] LABS: EOSINOPHILS 5.9 % (0-7); HEMATOCRIT 38.2 % (36.0-48.0); HEMOGLOBIN 12.6 g/dL (12-16); LYMPHOCYTES 43.1 % (15-50); MCH 29.3 pg (26.0-34.0); MCHC 32.9 g/dL (31.0-37.0); MCV 88.9 fL (80.0-100.0); MONOCYTES 13.8 % (2-11); NEUTROPHILS 36.2 % (40-80); PLATELET COUNT 176 10x3/uL (130-400); RBC 4.29 10x6/uL (4.00-5.40)
[2021-05-07 06:26] LABS: ALBUMIN 3.1 g/dL (3.4-5.0); ANION GAP 10.1 mmol/L (8-16); BILIRUBIN - TOTAL 0.77 mg/dL (0.2-1.3); CALCIUM 8.5 mg/dL (8.5-10.1); CARBON DIOXIDE 28.9 mmol/L (21.0-32.0); CREATININE - SERUM 1.3 mg/dL (0.6-1.3); MAGNESIUM - SERUM 2.2 mg/dL (1.8-2.4); PROTEIN - SERUM 7.1 g/dL (6.4-8.2)
--- NOTE | 2021-05-07 07:30 | NUR ---
REC'D IN BED EYES OPEN WATCHING TV. RESP EVEN AND UNALBORED WITH NO DISTRESS NOTED. CAN EXPRESS NEEDS AND WANTS. NO C/O NOTED OR VOICED. ASSESSMENT COMPLETED. C/L IN REACH AT BEDSIDE.
[2021-05-07 07:41] VITALS: BP 171/82
[2021-05-07 11:03] VITALS: BP 146/70
--- NOTE | 2021-05-07 12:29 | MORECARE ---
CASE MANAGEMENT DISCHARGE SUMMARY PATIENT: CHRISTAL HANLEY UNIT: [id number] ADM DATE: 05/04/21 AGE: 89 : 32 SEX: F ROOM/BED: .[facility] AUTHOR: CONSTANTIN,DOC PHYSICIAN: REFERRING PHYSICIAN: MAG GAMBOA DO DATE OF SERVICE: 05/07/21 Case Management Discharge Planning Summary COMMENTS ENTERED DATE: 05/06/21 14:16 CT COMMENT TYPE: Discharge Planning REVIEWER: Marianna Cueto CM MET WITH PATIENT ABOUT INPATIENT REHAB. I ALSO SPOKE WITH HER SON MR. LEAL ON THE PHONE AT [phone] AND HE AGREES TO INPATIENT REHAB AT [facility]. I AM FAXING REFERRAL OVER TO THEM NOW. SHE WAS NOT ACCEPTED TO OUR INPATIENT REHAB. CM TO FOLLOW AND ASSIST NEEDED. DCP REVIEW SUMMARY ANTICIPATED D/C DATE: EXPECTED LOS : CASE STATUS: DCP Initiated INITIAL REVIEW: 05/04/2021 INITIAL REVIEWER: Marianna Cueto FINAL DISCHARGE DISPOSITION: : FINAL REVIEWER: FINAL REVIEW DATE: DCP Focus Questions & Answers QUESTION: ANSWER : PATIENT: CHRISTAL HANLEY ENCOUNTER: [id number] MEDICAL RECORD#: [id number] ADMISSION DATE: 05/04/2021 DISCHARGE DATE: ATTENDING MD: MAG RAMIREZ : AGE: 89 MARITAL STATUS: W DC PLAN ID: [id number] FACILITY: [facility] PRINTED ON: 05/07/21 12:29 CT All edits/amendments must be made on the electronic document DICTATION DATE: 05/07/211228 CRUTCHING CONTRACTOR: IDALMIS 05/07/21 122 RPT#: [id number] DC DATE: STATUS: ADM IN [facility] [address] [place] [address] END OF REPORT
--- NOTE | 2021-05-07 12:47 | NUR ---
OT NOTE: PT ABLE TO PERFORM BED MOB INCLUDING ROLLING AND SUPINE TO SIT WITH MIN ASSIST; ENCOURAGED PT TO SIT UP IN CHAIR BUT SHE REFUSED STATING THAT SHE DID NOT FEEL WELL, AND THE LAST TIME SOMEONE MADE HER DO SOMETHING WHEN SHE DIDNT FEEL WELL, SHE PASSED OUT. DIFFICULT TO GET TMT DONE PT HAS TO BE FREQUENTLY REDIRECTED FROM STORY TELLING. ASKED PT IF SHE WOULD LIKE TO GO TO BATHROOM.. PT STATED THAT SHE WAS UNABLE TO GET TO BATHROOM.. REMINDED PT THAT WE DID IT THE OTHER DAY WITH THE WALKER, BUT PT ARGUED THAT THIS WAS NOT DONE. ATTEMPTED TO ENCOURAGE PT TO PERFORM ANY PART OF THERAPY, (ADLS, EXS, TRANSFERS, ETC..) PT REPORTED THAT SHE WAS TOO DIZZY AND SHE KNEW IF SHE WAS ABLE TO PERFORM THESE ACT, AND SHE COULD NOT DO THEM TODAY.. KIAN AUGUSTIN, OTR/L [phone]
--- NOTE | 2021-05-07 14:12 | NUR ---
I have reviewed this patient and I concur with the Shift Assessment completed by the Licensed Practical Nurse today this shift.
--- NOTE | 2021-05-07 16:43 | MORECARE ---
CASE MANAGEMENT DISCHARGE SUMMARY PATIENT: CHRISTAL HANLEY UNIT: [id number] ADM DATE: 05/04/21 AGE: 89 : 32 SEX: F ROOM/BED: D.[facility]6 AUTHOR: ROBERT KILLIAN PHYSICIAN: REFERRING PHYSICIAN: MAG GAMBOA DO DATE OF SERVICE: 05/07/21 Case Management Discharge Planning Summary COMMENTS ENTERED DATE: 05/07/21 16:40 CT COMMENT TYPE: Discharge Planning REVIEWER: Marianna Nory I SPOKE WITH PATIENT'S SON AND HE STATES SHE WILL NEED REHAB AT A SNF BEFORE HE CAN TAKE CARE OF HER AT HOME. I AM FAXING A REFERRAL TO [facility], WAITING CALLBACK. ANTICIPATE DC SOON SHE IS ACCEPTED. ENTERED DATE: 05/06/21 14:16 CT COMMENT TYPE: Discharge Planning REVIEWER: Marianna Cueto CM MET WITH PATIENT ABOUT INPATIENT REHAB. I ALSO SPOKE WITH HER SON MR. LEAL ON THE PHONE AT [phone] AND HE AGREES TO INPATIENT REHAB AT [facility]. I AM FAXING REFERRAL OVER TO THEM NOW. SHE WAS NOT ACCEPTED TO OUR INPATIENT REHAB. CM TO FOLLOW AND ASSIST NEEDED. DCP REVIEW SUMMARY ANTICIPATED D/C DATE: EXPECTED LOS : CASE STATUS: DCP Initiated INITIAL REVIEW: 05/04/2021 INITIAL REVIEWER: Marianna Cueto FINAL DISCHARGE DISPOSITION: : FINAL REVIEWER: FINAL REVIEW DATE: DCP Focus Questions & Answers QUESTION: ANSWER : PROVIDER NETWORKING REVIEW DATE: 05/07/2021 SERVICE TYPE: [facility] REVIEWER: Marianna Cueto PATIENT: CHRISTAL HANLEY ENCOUNTER: [id number] MEDICAL RECORD#: [id number] ADMISSION DATE: 05/04/2021 DISCHARGE DATE: ATTENDING MD: MAG RAMIREZ : AGE: 89 MARITAL STATUS: W DC PLAN ID: [id number] FACILITY: [facility] PRINTED ON: 05/07/21 16:43 CT All edits/amendments must be made on the electronic document DICTATION DATE: 061642 STATE APPELLATE CLERK: IDALMIS 05/07/211642 RPT#: [id number] DC DATE: STATUS: ADM IN [facility] [address] [place] [address] END OF REPORT
[2021-05-07 20:00] VITALS: BP 155/66
[2021-05-07 23:37] LABS: BILIRUBIN NEGATIVE (NEGATIVE); KETONE NEGATIVE mg/dL (< 1+); NITRITE POSITIVE (NEGATIVE); UROBILINOGEN NORMAL mg/dL (< 2)
[2021-05-07 23:43] LABS: BACTERIA MANY HPF (<MOD); SQUAMOUS EPITHELIAL 0-5 HPF (0-4); WHITE CELLS - URINE 0-5 HPF (0-4)
[2021-05-07 23:45] LABS: UDS - AMPHET NEGATIVE QUAL (NEGATIVE); UDS - BARB NEGATIVE QUAL (NEGATIVE); UDS - BENZO NEGATIVE QUAL (NEGATIVE); UDS - COCAINE NEGATIVE QUAL (NEGATIVE); UDS - OPIATE NEGATIVE QUAL (NEGATIVE); UDS - PCP NEGATIVE QUAL (NEGATIVE); UDS - THC NEGATIVE QUAL (NEGATIVE)
[2021-05-08] VITALS: BP 168/90
[2021-05-08 04:00] VITALS: BP 153/59
[2021-05-08 06:22] LABS: BASOPHILS 0.9 % (0-2); EOSINOPHILS 5.8 % (0-7); HEMATOCRIT 37.7 % (36.0-48.0); HEMOGLOBIN 12.3 g/dL (12-16); LYMPHOCYTES 43.7 % (15-50); MCH 29.1 pg (26.0-34.0); MCHC 32.6 g/dL (31.0-37.0); MCV 89.2 fL (80.0-100.0); MONOCYTES 12.3 % (2-11); NEUTROPHILS 37.3 % (40-80); PLATELET COUNT 185 10x3/uL (130-400); RBC 4.22 10x6/uL (4.00-5.40); RDW 15.5 % (11.5-14.5); WBC 3.2 10x3/uL (4.8-10.8)
[2021-05-08 06:32] LABS: ANION GAP 10.8 mmol/L (8-16); BILIRUBIN - TOTAL 0.6 mg/dL (0.2-1.3); CALCIUM 8.7 mg/dL (8.5-10.1); CARBON DIOXIDE 29.4 mmol/L (21.0-32.0); CREATININE - SERUM 1.3 mg/dL (0.6-1.3); MAGNESIUM - SERUM 2.1 mg/dL (1.8-2.4); POTASSIUM - SERUM 3.2 mmol/L (3.5-5.1); PROTEIN - SERUM 7.1 g/dL (6.4-8.2)
--- NOTE | 2021-05-08 07:20 | NUR ---
PT RESTING IN BED WITH EYES CLOSED. RESP EVEN AND UNLABORED. AWAKENS WITH NAME CALLED. SALINE LOC TO LEFT AC. PUREWICK IN PLACE, WITH YELLOW URINE NOTED. PT DENIES FURTHER NEEDS AT THIS TIME. CL WITHIN REACH. ENCOURAGED TO CALL WITH NEEDS. CONTINUE POC
[2021-05-08 09:01] VITALS: BP 166/89
[2021-05-08 17:15] VITALS: BP 139/71
--- NOTE | 2021-05-08 19:30 | NUR ---
RECEIVED BEDSIDE REPORT. PT LAYING IN BED A&O X4. PIV TO LEFT AC PATENT AND S/L, NO REDNESS OR SWELLING. TELEMETRY IN PLACE, 53 SB WITH PVCS. PT ABLE TO AMBULATE WITH ASSIST. PUREWICK IN PLACE, DRAINING TO SUCTION. EDUCATED ON CL AND NEEDS, VERBALIZED UNDERSTANDING. BED LOW, ALARM ON, CL IN REACH.
[2021-05-08 20:00] VITALS: BP 137/76
--- NOTE | 2021-05-08 22:51 | NUR ---
OT NOTE: PT COMPLETED SUPINE TO SIT WITH CGA. PT COMPLETED SIT TO STAND WITH CGA. PT COMPLETED ADL MOBILITY WITH CGA. PT REQUIRED MIN A FOR UB HYGIENE. PT REQUIRED TOTAL A FOR CHUCHO SOCKS. PT COMPLETED HAND HYGIENE WITH SETUP. 128-2 DIOMEDES LANDA COTA
[2021-05-09] VITALS: BP 169/88
[2021-05-09 04:00] VITALS: BP 167/86
[2021-05-09 06:01] LABS: EOSINOPHILS 6.1 % (0-7); HEMATOCRIT 35.7 % (36.0-48.0); HEMOGLOBIN 11.8 g/dL (12-16); LYMPHOCYTES 39.3 % (15-50); MCH 28.9 pg (26.0-34.0); MCHC 32.9 g/dL (31.0-37.0); MCV 87.9 fL (80.0-100.0); MEAN PLATELET VOLUME 9.1 fL (7.4-10.4); MONOCYTES 11.8 % (2-11); NEUTROPHILS 41.8 % (40-80); PLATELET COUNT 171 10x3/uL (130-400); RBC 4.06 10x6/uL (4.00-5.40); RDW 14.8 % (11.5-14.5)
[2021-05-09 07:31] LABS: ALBUMIN 2.8 g/dL (3.4-5.0); ANION GAP 9.7 mmol/L (8-16); BILIRUBIN - TOTAL 0.48 mg/dL (0.2-1.3); CALCIUM 8.6 mg/dL (8.5-10.1); CARBON DIOXIDE 30.7 mmol/L (21.0-32.0); CREATININE - SERUM 1.3 mg/dL (0.6-1.3); MAGNESIUM - SERUM 2.2 mg/dL (1.8-2.4); POTASSIUM - SERUM 3.4 mmol/L (3.5-5.1); PROTEIN - SERUM 6.5 g/dL (6.4-8.2)
--- NOTE | 2021-05-09 07:32 | NUR ---
pt lying in bed. bedside shift report given. iv cdi, rr even nonlabored. assisted pt to restroom and back to bed. all needs met at this time. clwr.
[2021-05-09 09:04] VITALS: BP 153/85
--- NOTE | 2021-05-09 13:07 | MORECARE ---
CASE MANAGEMENT DISCHARGE SUMMARY PATIENT: CHRISTAL HANLEY UNIT: [id number] ADM DATE: 05/04/21 AGE: 89 : 32 SEX: F ROOM/BED: D.2216 AUTHOR: CONSTANTIN,DOC PHYSICIAN: REFERRING PHYSICIAN: MAG GAMBOA DO DATE OF SERVICE: 05/09/21 Case Management Discharge Planning Summary COMMENTS ENTERED DATE: 05/09/21 12:49 CT COMMENT TYPE: Discharge Planning REVIEWER: Marie Lopez CM WENT TO THE PATIENT'S ROOM TO ADVISE OF DISCHARGE TO [facility] THIS AFTERNOON. SHE WAS UPSET THAT SHE DID NOT KNOW UNTIL THIS AM. SHE STATED HER SON HAD INDICATED HE DID NOT KNOW. CM ADVISED HER OF THE FACILITY. OBTAINED A BROCHURE FOR [facility]. SHE CALLED TO ADVISE HER BANKER OF THE FACILITY AND PROVIDED CONTACT INFORMATION. STATED SHE WOULD NOTIFY HER INDEPENDENT TRADER LATER. SHE HAD NO FURTHER CONCERNS. SHE WILL REVIEW DISCHARGE IMM AFTER LUNCH WHICH JUST ARRIVED. CM TO REVISIT. ENTERED DATE: 05/07/21 16:40 CT COMMENT TYPE: Discharge Planning REVIEWER: Marianna Nory I SPOKE WITH PATIENT'S SON AND HE STATES SHE WILL NEED REHAB AT A SNF BEFORE HE CAN TAKE CARE OF HER AT HOME. I AM FAXING A REFERRAL TO [facility], WAITING CALLBACK. ANTICIPATE DC SOON SHE IS ACCEPTED. ENTERED DATE: 05/06/21 14:16 CT COMMENT TYPE: Discharge Planning REVIEWER: Marianna Nory CM MET WITH PATIENT ABOUT INPATIENT REHAB. I ALSO SPOKE WITH HER SON MR. LEAL ON THE PHONE AT [phone] AND HE AGREES TO INPATIENT REHAB AT [facility]. I AM FAXING REFERRAL OVER TO THEM NOW. SHE WAS NOT ACCEPTED TO OUR INPATIENT REHAB. CM TO FOLLOW AND ASSIST NEEDED. DCP REVIEW SUMMARY ANTICIPATED D/C DATE: EXPECTED LOS : CASE STATUS: DCP Initiated INITIAL REVIEW: 05/04/2021 INITIAL REVIEWER: Marianna Cueto FINAL DISCHARGE DISPOSITION: : FINAL REVIEWER: FINAL REVIEW DATE: DCP Focus Questions & Answers QUESTION: ANSWER : PROVIDER NETWORKING REVIEW DATE: 05/07/2021 SERVICE TYPE: [facility] REVIEWER: Marianna Cueto PATIENT: CHRISTAL HANLEY ENCOUNTER: [id number] MEDICAL RECORD#: [id number] ADMISSION DATE: 05/04/2021 DISCHARGE DATE: ATTENDING MD: MAG RAMIREZ : AGE: 89 MARITAL STATUS: W DC PLAN ID: [id number] FACILITY: [facility] PRINTED ON: 05/09/21 13:07 CT All edits/amendments must be made on the electronic document DICTATION DATE: 05/09/211306 CONTINUOUS PROCESS TANNER ROTARY DRUM: IDALMIS 05/09/21 130 RPT#: [id number] DC DATE: STATUS: ADM IN [facility] [address] [place] [address] END OF REPORT
--- NOTE | 2021-05-09 14:59 | MORECARE ---
CASE MANAGEMENT DISCHARGE SUMMARY PATIENT: CHRISTAL HANLEY UNIT: [id number] ADM DATE: 05/04/21 AGE: 89 : 34 SEX: F ROOM/BED: D.2216 AUTHOR: CONSTANTIN,DOC PHYSICIAN: REFERRING PHYSICIAN: MAG GAMBOA DO DATE OF SERVICE: 05/09/21 Case Management Discharge Planning Summary COMMENTS ENTERED DATE: 05/09/21 14:50 CT COMMENT TYPE: Discharge Planning REVIEWER: Marianna Cueto PATIENT SON IS HERE AT THE HOSPITAL, HE TOURED [facility] BEFORE COMING HERE AND DOESN'T THINK THEIR FACILITY WILL BE A GOOD FIT FOR HER. IVONNE, BLAINE CHEN AND DR. CACERES MET WITH PATIENT AND HER SON. THE PLAN IS NOW PATIENT WILL DC TO HOME WITH HER SON AND THE [facility] IS REVIEWING HER CHART FOR POSSIBLE ADMISSION TO THEIR FACILITY. CM TO FOLLOW AND ASSIST NEEDED. IMM SIGNED AND PLACED IN CHART. ENTERED DATE: 05/09/21 14:43 CT COMMENT TYPE: Discharge Planning REVIEWER: Marie Lopez THE PATIENT' SON VISITED [facility] THIS PM. HE DECLINED THE BED. CM WENT TO SPEAK WITH HIM THE PATIENT IS DICHARGED. HE STATES HE DID NOT VISIT THE [facility] HOWEVER HE SPOKE WITH CHASITY AT THE [facility]. HE REQUEST THAT WE SEND RECORDS FOR REVIEW. AND BLAINE WENT TO SPEAK WITH THE PATIENT AND HER SON. OFFERED OPTION OF DISCHARGE TO HOME W/ H/H OR THE [facility] IF A BED AVAILABLE TODAY. AWAIT CB FROM THE [facility]. ENTERED DATE: 05/09/21 12:49 CT COMMENT TYPE: Discharge Planning REVIEWER: Marie Lopez CM WENT TO THE PATIENT'S ROOM TO ADVISE OF DISCHARGE TO [facility] THIS AFTERNOON. SHE WAS UPSET THAT SHE DID NOT KNOW UNTIL THIS AM. SHE STATED HER SON HAD INDICATED HE DID NOT KNOW. CM ADVISED HER OF THE FACILITY. OBTAINED A BROCHURE FOR [facility]. SHE CALLED TO ADVISE HER BANKER OF THE FACILITY AND PROVIDED CONTACT INFORMATION. STATED SHE WOULD NOTIFY HER DAY CARE AIDE LATER. SHE HAD NO FURTHER CONCERNS. SHE WILL REVIEW DISCHARGE IMM AFTER LUNCH WHICH JUST ARRIVED. CM TO REVISIT. ENTERED DATE: 05/07/21 16:40 CT COMMENT TYPE: Discharge Planning REVIEWER: Marianna Cueto I SPOKE WITH PATIENT'S SON AND HE STATES SHE WILL NEED REHAB AT A SNF BEFORE HE CAN TAKE CARE OF HER AT HOME. I AM FAXING A REFERRAL TO [facility] SNF, WAITING CALLBACK. ANTICIPATE DC SOON SHE IS ACCEPTED. ENTERED DATE: 05/06/21 14:16 CT COMMENT TYPE: Discharge Planning REVIEWER: Marianna Cueto CM MET WITH PATIENT ABOUT INPATIENT REHAB. I ALSO SPOKE WITH HER SON MR. LEAL ON THE PHONE AT [phone] AND HE AGREES TO INPATIENT REHAB AT [facility]. I AM FAXING REFERRAL OVER TO THEM NOW. SHE WAS NOT ACCEPTED TO OUR INPATIENT REHAB. CM TO FOLLOW AND ASSIST NEEDED. [facility] REVIEW SUMMARY ANTICIPATED D/C DATE: EXPECTED LOS : CASE STATUS: DCP Initiated INITIAL REVIEW: 05/04/2021 INITIAL REVIEWER: Marianna Cueto FINAL DISCHARGE DISPOSITION: : FINAL REVIEWER: FINAL REVIEW DATE: DCP [facility] Questions & Answers QUESTION: ANSWER : PROVIDER NETWORKING REVIEW DATE: 05/07/2021 SERVICE TYPE: [facility] REVIEWER: Marianna Cueto REVIEW DATE: 05/09/2021 SERVICE TYPE: [facility] REVIEWER: Marianna Cueto PATIENT: CHRISTAL HANLEY ENCOUNTER: [id number] MEDICAL RECORD#: [id number] ADMISSION DATE: 05/04/2021 DISCHARGE DATE: ATTENDING MD: MAG RAMIREZ : AGE: 89 MARITAL STATUS: W DC PLAN ID: [id number] FACILITY: [facility] PRINTED ON: 05/09/21 14:59 CT All edits/amendments must be made on the electronic document DICTATION DATE: 05/09/211457 FRESH FOOD MANAGER: IDALMIS 05/09/211457 RPT#: [id number] DC DATE: STATUS: ADM IN [facility] [address] [place] [address] END OF REPORT
--- NOTE | 2021-05-11 18:18 | MORECARE ---
CASE MANAGEMENT DISCHARGE SUMMARY PATIENT: CHRISTAL HANLEY UNIT: [id number] ADM DATE: 05/04/21 AGE: 89 : 34 SEX: F ROOM/BED: D.2216 AUTHOR: CONSTANTIN,DOC PHYSICIAN: REFERRING PHYSICIAN: MAG GAMBOA DO DATE OF SERVICE: 05/11/21 Case Management Discharge Planning Summary COMMENTS ENTERED DATE: 05/09/21 14:50 CT COMMENT TYPE: Discharge Planning REVIEWER: Marianna Cueto PATIENT SON IS HERE AT THE HOSPITAL, HE TOURED [facility] BEFORE COMING HERE AND DOESN'T THINK THEIR FACILITY WILL BE A GOOD FIT FOR HER. IVONNE, BLAINE CHNE AND DR. CACERES MET WITH PATIENT AND HER SON. THE PLAN IS NOW PATIENT WILL DC TO HOME WITH HER SON AND THE [facility] IS REVIEWING HER CHART FOR POSSIBLE ADMISSION TO THEIR FACILITY. CM TO FOLLOW AND ASSIST NEEDED. IMM SIGNED AND PLACED IN CHART. ENTERED DATE: 05/09/21 14:43 CT COMMENT TYPE: Discharge Planning REVIEWER: Marie Lopez THE PATIENT' SON VISITED [facility] THIS PM. HE DECLINED THE BED. CM WENT TO SPEAK WITH HIM THE PATIENT IS DICHARGED. HE STATES HE DID NOT VISIT THE [facility] HOWEVER HE SPOKE WITH CHASITY AT THE [facility]. HE REQUEST THAT WE SEND RECORDS FOR REVIEW. AND BLAINE WENT TO SPEAK WITH THE PATIENT AND HER SON. OFFERED OPTION OF DISCHARGE TO HOME W/ H/H OR THE [facility] IF A BED AVAILABLE TODAY. AWAIT CB FROM THE [facility]. ENTERED DATE: 05/09/21 12:49 CT COMMENT TYPE: Discharge Planning REVIEWER: Marie Lopez CM WENT TO THE PATIENT'S ROOM TO ADVISE OF DISCHARGE TO [facility] THIS AFTERNOON. SHE WAS UPSET THAT SHE DID NOT KNOW UNTIL THIS AM. SHE STATED HER SON HAD INDICATED HE DID NOT KNOW. CM ADVISED HER OF THE FACILITY. OBTAINED A BROCHURE FOR [facility]. SHE CALLED TO ADVISE HER BANKER OF THE FACILITY AND PROVIDED CONTACT INFORMATION. STATED SHE WOULD NOTIFY HER VICE PRESIDENT FOR INSTRUCTION LATER. SHE HAD NO FURTHER CONCERNS. SHE WILL REVIEW DISCHARGE IMM AFTER LUNCH WHICH JUST ARRIVED. CM TO REVISIT. ENTERED DATE: 05/07/21 16:40 CT COMMENT TYPE: Discharge Planning REVIEWER: Marianna Cueto I SPOKE WITH PATIENT'S SON AND HE STATES SHE WILL NEED REHAB AT A SNF BEFORE HE CAN TAKE CARE OF HER AT HOME. I AM FAXING A REFERRAL TO [facility] SNF, WAITING CALLBACK. ANTICIPATE DC SOON SHE IS ACCEPTED. ENTERED DATE: 05/06/21 14:16 CT COMMENT TYPE: Discharge Planning REVIEWER: Marianna Cueto CM MET WITH PATIENT ABOUT INPATIENT REHAB. I ALSO SPOKE WITH HER SON MR. LEAL ON THE PHONE AT [phone] AND HE AGREES TO INPATIENT REHAB AT [facility]. I AM FAXING REFERRAL OVER TO THEM NOW. SHE WAS NOT ACCEPTED TO OUR INPATIENT REHAB. CM TO FOLLOW AND ASSIST NEEDED. DCP REVIEW SUMMARY ANTICIPATED D/C DATE: EXPECTED LOS : CASE STATUS: DCP Complete INITIAL REVIEW: 05/04/2021 INITIAL REVIEWER: Marianna Cueto FINAL DISCHARGE DISPOSITION: : FINAL REVIEWER: FINAL REVIEW DATE: DCP Focus Questions & Answers QUESTION: ANSWER : PROVIDER NETWORKING REVIEW DATE: 05/07/2021 SERVICE TYPE: [facility] Facility REVIEWER: Marianna Cueto REVIEW DATE: 05/09/2021 SERVICE TYPE: [facility] Facility REVIEWER: Marianna Cueto PATIENT: CHRISTAL HANLEY ENCOUNTER: [id number] MEDICAL RECORD#: [id number] ADMISSION DATE: 05/04/2021 DISCHARGE DATE: 05/09/2021 ATTENDING MD: MAG RAMIREZ : AGE: 89 MARITAL STATUS: W DC PLAN ID: [id number] FACILITY: [facility] PRINTED ON: 05/11/21 18:18 CT All edits/amendments must be made on the electronic document DICTATION DATE: 05/11/211817 TIRE RECAPPER: IDALMIS 05/11/211817 RPT#: [id number] DC DATE:05/09/21 STATUS: DIS IN [facility] [address] [place] [address] END OF REPORT
== END 2021-05-09 16:02 | disposition home or self-care (01) | DRG 101 ==
LOC: D.ER 16:02 → D.EDHOLD 16:24 → D.MS 16:24
PROVIDERS: Family Medicine; ADMIT Family Medicine; ATTEND Family Medicine
DX: R56.9 Unspecified convulsions (principal); I10 Essential (primary) hypertension; I48.91 Unspecified atrial fibrillation; M19.90 Unspecified osteoarthritis, unspecified site; Z86.73 Personal history of transient ischemic attack (TIA), and cerebral infarction without residual deficits; Z79.01 Long term (current) use of anticoagulants; Z86.711 Personal history of pulmonary embolism; Z85.42 Personal history of malignant neoplasm of other parts of uterus